=== PATIENT | female | born 1975 | race Caucasian/White ===

== ENCOUNTER 2023-05-28 16:19 | Emergency (ER) | payer BC, SELFPAY ==
[2023-05-28 16:24] VITALS: BP 126/92; PULSE 140; RESP 18; TEMP 36.9; O2SAT 100
[2023-05-28 16:37] VITALS: BP 111/96; PULSE 133; RESP 13; O2SAT 100; BMI 28.8
--- NOTE | 2023-05-28 17:10 | EKG12_ITS ---
Test Reason : RHYTHM CONVERSION Blood Pressure : / mmHG Vent. Rate : 075 BPM Atrial Rate : 075 BPM P-R Int : 134 ms QRS Dur : 114 ms QT Int : 416 ms P-R-T Axes : 064 086 053 degrees QTc Int : 464 ms Normal sinus rhythm Low voltage QRS Incomplete right bundle branch block Borderline ECG Confirmed by MICKEY ARCHULETA, PEDRO ([id number]), fan mail editor MIGDALIA ROGERS ([id number]) on 06/01/2023 10:27:49 AM Referred By: DARI Confirmed By:MOON AREVALO MD
--- NOTE | 2023-05-28 17:12 | EDS_ITS ---
HPI History of Present Illness Chief Complaint: Palpitations Informant: patient Narrative Narrative: Had mild chest tightness, rapid palpitations almost all day today. She went to her PCP and was sent here by EMS. She has had no syncope. She has had no dyspnea. No leg pain or swelling. She drinks 2 cups or so of coffee each day, and sometimes an energy drink on top of that, last couple days she has had less coffee/caffeine than usual. No illicit drugs like cocaine or any other stimulants. She had this happen once a month or so ago, it spontaneously resolved after a day or so. She also had it happen for an hour or less several days ago, and then today. This is the first time she is been evaluated for it. No history of heart or lung problems that she knows of. [facility] Medical History GERD (gastroesophageal reflux disease) Irritable bowel syndrome (IBS) Lupus Home Medications metoprolol tartrate 25 mg tablet 25 mg PO BID #60 tabs 05/28/23 [Rx Last Taken Unknown] Allergy/AdvReac Type Severity Reaction Status Date / Time doxycycline Allergy Hives Verified 05/28/23 16:23 Influenza Virus Vaccines Allergy Hives Verified 05/28/23 16:23 Penicillins Allergy Hives Verified 05/28/23 16:23 Sulfa (Sulfonamide Allergy Hives Verified 05/28/23 16:23 Antibiotics) Social History Smoking Status: Never smoker ROS ROS ED Constitutional Constitutional ED: Denies chills or fever(s) Eyes Eyes: Denies change in vision or diplopia ENT ENT ED: Denies rhinorrhea or sore throat Cardiovascular Cardiovascular: Reports chest pain, palpitations and racing heartbeat; Denies syncope Respiratory/Chest Respiratory/Chest: Denies cough or dyspnea Gastrointestinal Gastrointestinal: Denies abdominal pain, diarrhea, nausea or vomiting Genitourinary Genitourinary ED: Denies dysuria or hematuria Musculoskeletal Musculoskeletal: Denies back pain or neck pain Integumentary Denies abscess or rash Neurologic Neurologic: Denies headache(s), paresthesias or weakness Psychiatric Psychiatric: Denies anxiety or suicidal thoughts EXAM Physical Exam Const Vital Signs: 05/28/23 16:24 05/28/23 16:37 05/28/23 17:52 Temperature 98.5 F Temperature Source Temporal Pulse Rate 140 H 133 H 132 H Respiratory Rate 18 13 26 H Blood Pressure 126/92 H 111/96 H 106/91 H Blood Pressure Mean 103 101 96 Pulse Ox 100 100 100 Oxygen Delivery Method Room Air Room Air Room Air 05/28/23 18:14 05/28/23 18:14 05/28/23 18:33 Temperature Temperature Source Pulse Rate 129 H 72 Respiratory Rate 29 H 20 H Blood Pressure 119/95 H 140/87 H Blood Pressure Mean 103 104 Pulse Ox 100 100 Oxygen Delivery Method Room Air Room Air Room Air 05/28/23 19:25 Temperature Temperature Source Pulse Rate 86 Respiratory Rate Blood Pressure 132/96 H Blood Pressure Mean Pulse Ox 98 Oxygen Delivery Method Positive well nourished and well developed General Appearance ED: well developed and NAD HEENT Reports moist mucous membranes normocephalic and atraumatic Eyes PERRL and EOMs intact bilaterally Neck full ROM, supple and no JVD Resp normal respiratory effort and clear to auscultation bilaterally Cardio regular rate, regular rhythm and no murmurs Rate: tachycardic GI non-tender and non-distended Auscultation: normoactive bowel sounds Palpation: soft Back/Spine no CVA tenderness General Back: other FROM Extremity normal to inspection and no calf tenderness General Extremety ED: Negative for edema, pulses abnormal or tenderness General Extremity: Negative for edema or pulses abnormal Neuro oriented x3, CN's II-XII intact bilaterally and no sensory deficits noted Sensorium / Orientation: awake and alert Motor Exam: strength 5/5 throughout Psych mental status grossly normal Skin no rashes or lesions noted and no wounds MDM MDM MDM Narrative Medical decision making narrative: Patient does appear tachycardic on the monitor, this sounds like a primary dysrhythmia/electrical issue, screen her for metabolic disturbances with blood work as well as a troponin all of which was normal/negative. Her EKG shows a narrow complex tachycardia with a right bundle branch block but still narrow complex, and P waves appear to be buried in the QRS complex, suspicious for antidromic AVNRT, or possibly junctional tachycardia, ectopic atrial tachycardia with retrograde PEs, and/or accessory pathway. Less likely to be a flutter since she is sitting in the 120s/130s without ectopy. We observed her until we were able to convene with respiratory, nursing, physician at the same time and give her adenosine, she did not have any changes in her symptoms nor did she converted on her own before that. She consented to getting adenosine. 6 mg push was given, she tolerated this well and this resulted in immediate cardiov ersion to normal sinus rhythm, and her symptoms resolved. Repeat EKG obtained and looks normal with persistence of the incomplete right bundle branch block. Given all of this, I discussed outpatient management with cardiology, only because she has had a couple episodes of this in the last couple weeks or months. Dr. Baker agrees with putting her on an AV lyric lakisha, recommends metoprolol tartrate 25 mg twice daily. Patient was observed, she had no recurrence of her dysrhythmia, she will be discharged home with a prescription after being given a dose here. Lab Data Attestation: I reviewed the patient's lab results. Labs: Laboratory Results - last 24 hr 05/28/23 16:47 WBC 4.8 RBC 4.77 Hgb 14.0 Hct 43.2 MCV 90.6 MCH 29.4 MCHC 32.4 RDW Std Deviation 42.0 RDW Coeff of Khris 12.6 Plt Count 347 MPV 9.5 Immature Gran % (Auto) 0.400 Neut % (Auto) 58.0 Lymph % (Auto) 30.5 Blaine % (Auto) 10.9 H Eos % (Auto) 0.2 Baso % (Auto) 0.0 Absolute Neuts (auto) 2.8 Absolute Lymphs (auto) 1.46 Nucleated RBC % 0 Sodium 140 Potassium 3.5 Chloride 108 H Carbon Dioxide 27.0 Anion Gap 5 BUN 13 Creatinine 0.86 Estim Creat Clear Calc 80.33 Est GFR (MDRD) Af Amer 91 Est GFR (MDRD) Non-Af 76 BUN/Creatinine Ratio 15.1 Glucose 96 Calcium 9.4 Troponin I High Sens < 3 L Rhythm Strip Rhythm Strip: Narrow complex tachycardia Rate: 133 Ectopy: None EKG Initial EKG: Attestation: I personally reviewed and interpreted this EKG as follows: Interpretation: - (Narrow complex tachycardia with upright T waves and no ST segment deviation, and incomplete RBBB) Prior EKG tracings: not available for review Prior: No Prior Follow-up EKG: Attestation: I personally reviewed and interpreted this EKG as follows: Interpretation: Sinus Rhythm, No Acute Injury Pattern and RBBB (Incomplete) Prior: Changed Management Discussion w/another healthcare provider: Salvage Repairer (Cardiology) Critical Care Time Critical Care Time: Yes Critical care time (excluding procedures): 30-74 minutes (33 min), Including time spent:, Discussing w/Patient &/or Family/Sheet Metal Worker Maintenance, Discussing w/Consultants, Performing Direct Patient Care at Bedside and - (Supervising pharmacologic cardioversion by nursing pushing adenosine) Discharge Plan Triage Chief Complaint: Palpitations ED Provider: Alphonso Quan Dx/Rx/DC Orders Clinical Impression: Supraventricular tachycardia Instructions: ED Understanding Supraventricular Tachycardia (SVT) Prescriptions: New metoprolol tartrate 25 mg tablet 25 mg PO BID Qty: 60 0RF Primary Care Provider: Arden Macias Referrals: Celestina Baker MD [Med Staff - Active Staff] - (call for appt) Arden Macias MD [Primary Care Provider] - Disposition Disposition: Home, Self Care Discharge Date/Time: 05/28/23 19:31
[2023-05-28 17:21] LABS: Absolute Lymphocyte Count 1.46 X10^3/uL (0.83-4.51); Absolute Neutrophil Count 2.8 X10^3/uL (2.0-7.7); Eosinophil# 0.01 X10^3/uL; Eosinophils% 0.2 % (0-5); Hematocrit 43.2 % (37-47); Lymphocyte # 1.46 X10^3/ul (0.83-4.51); Lymphocyte % 30.5 % (19-41); Mean Corp Hgb Conc 32.4 g/dL (32-36); Mean Corpuscular Hgb 29.4 pg (27.0-32.0); Mean Corpuscular Volume 90.6 fL (81-99); Mean Platelet Vol. 9.5 fl (6.2-12.0); Monocyte# 0.52 X10^3/uL; Monocyte% 10.9 % (0-10); NRBC Flagged by Analyzer 0 % (0-5); Neutrophil # 2.78 X10^3/uL (2.7-7.7); Platelet Count 347 K/mm3 (150-450); RBC Distribution Width CV 12.6 % (11.6-14.6); Red Blood Count 4.77 M/mm3 (4.2-5.4); White Blood Count 4.8 K/mm3 (4.4-11.0)
[2023-05-28] MEDS: 0.9% Normal Saline (500mL Bag) 500 ML 999 ML IV (17:34)
[2023-05-28 17:40] LABS: Anion Gap 5 (5-15); BUN 13 mg/dL (7-18); BUN/Creat Ratio 15.1 RATIO (10-20); Calcium,Total 9.4 mg/dL (8.5-10.1); Chloride 108 mmol/L (98-107); Creatinine, Serum 0.86 mg/dL (0.55-1.02); EST Glomerular Filtration Rate 76 mL/min (>60); Est Glom Filt Rate - Afr Amer 91 mL/min (>60); Estimated Creatinine Clearance 80.33 ml/min; Glucose 96 mg/dL (74-106); Potassium 3.5 mmol/L (3.5-5.1); Sodium Level 140 mmol/L (136-145); Troponin-I HS < 3 pg/mL (3.0-54.0)
[2023-05-28 17:52] VITALS: BP 106/91; PULSE 132; RESP 26; O2SAT 100
[2023-05-28 18:14] VITALS: BP 119/95; PULSE 129; RESP 29; O2SAT 100
[2023-05-28] MEDS: Adenosine 6 MG/2 ML Syringe IV (18:31)
--- NOTE | 2023-05-28 18:31 | EKG12_ITS ---
Test Reason : Blood Pressure : / mmHG Vent. Rate : 128 BPM Atrial Rate : 000 BPM P-R Int : 000 ms QRS Dur : 116 ms QT Int : 338 ms P-R-T Axes : 000 095 045 degrees QTc Int : 493 ms Accelerated Junctional rhythm with retrograde conduction Low voltage QRS Right bundle branch block Abnormal ECG Confirmed by MICKEY ARCHULETA, PEDRO ([id number]), proposal editor MIGDALIA ROGERS ([id number]) on 06/01/2023 10:27:28 AM Referred By: Confirmed By:MOON AREVALO MD
[2023-05-28 18:33] VITALS: BP 140/87; PULSE 72; RESP 20; O2SAT 100
--- NOTE | 2023-05-28 18:46 | ED.RN ---
PT REMAINED ON LIFEPAK MONITOR DURING ADENOSINE ADMINISTRATION. DR WILCOX AND RT DELANO AT BEDSIDE. PT CONVERTED TO NORMAL SINUS RHYTHM.
[2023-05-28] MEDS: Metoprolol Tartrate 25 MG Tablet PO (19:23)
[2023-05-28 19:25] VITALS: BP 132/96; PULSE 86; O2SAT 98
== END 2023-05-28 19:31 | disposition home or self-care (01) ==
PROVIDERS: Emergency Provider Emergency Medicine; PCP Family Medicine; Visit Provider Emergency Medicine
DX: I47.1 Supraventricular tachycardia (principal)
CPT/HCPCS: 80048; 84484; 85025; 93005; 96361; 96374; 99285; J7030; J7040; A4216; J0153

== ENCOUNTER → 2023-08-03 | Outpatient (CLI) | payer BC, SELFPAY ==
--- NOTE | 2023-08-03 13:45 | ECHOCS_ITS ---
Reason For Study: SVT Procedure This was a 2D Doppler, Color Flow transthoracic echocardiogram. The study was technically difficult. Contrast injection was performed. Exam performed in department. Left Ventricle Normal LV size. Left ventricular systolic function is normal. The estimated ejection fraction is 65 %. No regional wall motion abnormalities noted. Right Ventricle Normal RV size. The right ventricle is normal in size, function, and thickness. Atria Normal left atrium. Mitral Valve Normal mitral valve. Tricuspid Valve Normal tricuspid valve. Aortic Valve Normal aortic valve. Pulmonic Valve The pulmonic valve is not well visualized. Great Vessels Normal aortic root. The pulmonary artery is normal size. Normal inferior vena cava. Pericardium/Pleural No pericardial effusion. Medication 22 gauge I.V. with prn adaptor inserted into right arm. Diluted definity 1.5ml given slow IV push to enhance endocardial definition. MMode/2D Measurements & Calculations LVIDd: 4.5 cm IVSd: 0.96 cm Ao root diam: 3.1 cm LVIDs: 3.2 cm LVPWd: 0.82 cm LA dimension: 3.5 cm RVDd: 3.1 cm FS: 29.8 % LAV(MOD-bp): 42.9 ml LVAd ap4: 32.3 cm2 SV(MOD-sp4): 72.2 ml LAV(MOD-bp) Indexed: 21.9 ml/m2 LVLd ap4: 7.5 cm LAV(MOD-sp2): 41.1 ml EDV(MOD-sp4): 112.4 ml LAV(MOD-sp4): 39.5 ml EDV(sp4-el): 118.0 ml LVAs ap4: 16.8 cm2 LVLs ap4: 5.8 cm ESV(MOD-sp4): 40.2 ml ESV(sp4-el): 41.3 ml EF(MOD-sp4): 64.2 % EF(sp4-el): 65.0 % SV(sp4-el): 76.7 ml LA A4 area: 15.9 cm2 RA A4 area: 13.5 cm2 Time Measurements MV dec time: 0.21 sec Doppler Measurements & Calculations MV E max burton: 92.6 cm/sec Lat Peak E' Burton: 8.8 cm/sec Med Peak E' Burton: 13.7 cm/sec MV A max burton: 80.7 cm/sec E/E' lat: 10.5 E/E' med: 6.7 MV E/A: 1.1 MV V2 max: 106.4 cm/sec MV P1/2t max burton: 107.1 cm/sec Ao V2 max: 128.4 cm/sec MV max P.5 mmHg MV P1/2t: 71.7 msec Ao max P.6 mmHg MV V2 mean: 57.8 cm/sec Ao V2 mean: 89.2 cm/sec MV mean P.6 mmHg MV dec slope: 437.7 cm/sec2 Ao mean P.6 mmHg MV V2 VTI: 28.7 cm MVA(P1/2t): 3.1 cm2 Ao V2 VTI: 30.2 cm AV (velocity ratio): 0.86 LV V1 max: 116.8 cm/sec MR max burton: 532.6 cm/sec PA V2 max: 86.5 cm/sec LV V1 max P.5 mmHg MR max P.5 mmHg LV V1 mean P.2 mmHg LV V1 mean: 85.2 cm/sec LV V1 VTI: 26.1 cm ECHO/Echo Complete W/ Contrast Interpretation Summary Normal LV size. Left ventricular systolic function is normal. The estimated ejection fraction is 65 %. Contrast injection was performed. Ordering Physician: Pelon Escoto Referring Physician: Arden Macias Performed By: Godfrey Emery, ZARI
== END | disposition home or self-care (01) ==
LOC: CVS 13:44
PROVIDERS: PCP Family Medicine; Referring Provider Internal Medicine Cardiovascular Disease; Visit Provider Internal Medicine Cardiovascular Disease
DX: I47.10 Supraventricular tachycardia, unspecified (principal)
CPT/HCPCS: 93306; Q9957; A4216; C8929

== ENCOUNTER 2023-10-02 11:20 | Emergency (ER) | payer BC, SELFPAY ==
[2023-10-02 11:21] VITALS: BP 111/81; PULSE 147; RESP 22; TEMP 35.6; O2SAT 100; BMI 28.2
--- NOTE | 2023-10-02 11:42 | EDS_ITS ---
HPI History of Present Illness Chief Complaint: Palpitations Informant: patient and spouse/S.O. Narrative Narrative: 48-year-old female presenting to the emergency room with tachycardia. Patient states that she has been diagnosed with SVT and sees Dr. Escoto for cardiology locally and Dr. Bay from [facility] for electrophysiology. She states that she is to have a catheter directed ablation upcoming but it is not scheduled yet. This is causing her some stress. She states that yesterday she began to have heart rates in the 130s. She states that she tried taking extra metoprolol and bearing down. These have worked for her in the past. She states she is not taking any caffeine currently. Her laboratory workup in the past has been negative. She has had a prior ED visit with termination of the SVT using adenosine. She has an underlying right bundle branch block dating back to 2018. [facility] Medical History Adjustment disorder with mixed anxiety and depressed mood Bradycardia GERD (gastroesophageal reflux disease) Irritable bowel syndrome (IBS) Lupus Raynaud's disease without gangrene Right bundle branch block (RBBB) Home Medications calcium carbonate 600 mg calcium (1,500 mg) tablet 600 mg PO DAILY 06/16/23 [History Last Taken Unknown] desvenlafaxine succinate 100 mg tablet,extended release 24 hr (Pristiq) 100 mg PO DAILY 06/16/23 [History Last Taken Unknown] hydroxychloroquine 200 mg tablet 200 mg PO BID 06/16/23 [History Last Taken Unknown] multivitamin 1 tab PO DAILY 06/16/23 [History Last Taken Unknown] pantoprazole 40 mg tablet,delayed release 40 mg PO DAILY 06/16/23 [History Last Taken Unknown] biotin 10 mg tablet 10 mg PO DAILY 06/28/23 [History Last Taken Unknown] metoprolol tartrate 25 mg tablet 25 mg PO BID #180 tabs 08/06/23 [Rx Last Taken Unknown] Allergy/AdvReac Type Severity Reaction Status Date / Time doxycycline Allergy Hives Verified 06/28/23 10:54 Influenza Virus Vaccines Allergy Hives Verified 06/28/23 10:54 Penicillins Allergy Hives Verified 06/28/23 10:54 Sulfa (Sulfonamide Allergy Hives Verified 06/28/23 10:54 Antibiotics) Family History Father Aortic stenosis COPD (chronic obstructive pulmonary disease) Thyroid disorder Grandmother Aortic stenosis Uncle Myocardial infarction CAD (coronary artery disease) Surgical History Hx of appendectomy Social History Smoking Status: Former smoker ROS ROS ED Constitutional Constitutional ED: Denies chills, fever(s) or weight loss Eyes Eyes: Denies change in vision or diplopia ENT ENT ED: Denies ear pain, rhinorrhea or sore throat Cardiovascular Cardiovascular: Reports palpitations and racing heartbeat; Denies chest pain or orthopnea Respiratory/Chest Respiratory/Chest: Denies cough, dyspnea or orthopnea Gastrointestinal Gastrointestinal: Denies abdominal pain, diarrhea, nausea or vomiting Genitourinary Genitourinary ED: Denies dysuria, hematuria or urinary frequency Musculoskeletal Musculoskeletal: Denies arthralgias or myalgias Integumentary Denies abscess or rash Neurologic Neurologic: Denies headache(s) or weakness Psychiatric Psychiatric: Denies anxiety, depression, suicidal ideation or suicidal thoughts Endocrine Endocrinology: Denies polydipsia, polyphagia or polyuria Allergic/Immunologic Allergic/Immunologic ED: Denies mouth swelling, tongue swelling or urticaria EXAM Physical Exam Const Vital Signs: 10/02/23 11:21 10/02/23 11:51 10/02/23 12:00 Temperature 96.1 F L Temperature Source Temporal Pulse Rate 147 H 126 H 82 Respiratory Rate 22 H 14 20 H Blood Pressure 111/81 H 122/106 H 97/78 Blood Pressure Mean 91 111 84 Pulse Ox 100 100 100 Oxygen Delivery Method Room Air Room Air Room Air Positive well nourished and well developed General Appearance ED: well developed HEENT Reports normocephalic, head/scalp atraumatic and moist mucous membranes Eyes PERRL and EOMs intact bilaterally Neck no lymphadenopathy, supple and no JVD Resp normal respiratory effort and clear to auscultation bilaterally Cardio regular rate, regular rhythm and no murmurs Rate: tachycardic GI normal to inspection, nondistended, normoactive bowel sounds and non-tender Palpation: soft Back/Spine no CVA tenderness and normal ROM Extremity normal to inspection General Extremety ED: Negative for edema General Extremity: Negative for edema Neuro oriented x3 and CN's II-XII intact bilaterally Sensorium / Orientation: alert Motor Exam: strength 5/5 throughout Psych mental status grossly normal Mood & Affect: tearful; Negative for depressed Skin no rashes or lesions noted and no wounds MDM MDM MDM Narrative Medical decision making narrative: Prior EKGs and cardiology notes were reviewed. No relief with Valsalva here in the department. Patient received 6 mg of adenosine which resulted in conversion to a normal sinus rhythm. Repeat EKG was obtained. I spoke with Dr. Chisholm from cardiology. He is going to have their office reach out to [facility] to see if there is anything that they can do in helping her get scheduled for her cardiac ablation. Patient is comfortable with this plan. No changes to medications made. EKG Initial EKG: Attestation: I personally reviewed and interpreted this EKG as follows: Comments: SVT rhythm at a rate of 132 bpm with right bundle branch block. Follow-up EKG: Attestation: I personally reviewed and interpreted this EKG as follows: Comments: Normal sinus rhythm with a ventricular rate of 76 bpm. Right bundle branch block noted Management Discussion w/another healthcare provider: Director Of Audiology (Cardiology (Dr. Chisholm)) Discharge Plan Triage Chief Complaint: Palpitations ED Provider: Serafin Rainey Dx/Rx/DC Orders Clinical Impression: Right bundle branch block (RBBB), SVT (supraventricular tachycardia) Instructions: ED Understanding Supraventricular Tachycardia (SVT) Prescriptions: No Action desvenlafaxine succinate [Pristiq] 100 mg tablet extended release 24 hr 100 mg PO DAILY hydroxychloroquine 200 mg tablet 200 mg PO BID pantoprazole 40 mg tablet,delayed release (DR/EC) 40 mg PO DAILY calcium carbonate 600 mg calcium (1,500 mg) tablet 600 mg PO DAILY multivitamin Tablet 1 tab PO DAILY biotin 10 mg tablet 10 mg PO DAILY metoprolol tartrate 25 mg tablet 25 mg PO BID Qty: 180 4RF Primary Care Provider: Arden Macias Referrals: Arden Macias MD [Primary Care Provider] - Activity Restrictions/Additional Instructions: Continue the home medication and treatments as discussed with your cardiologists. I spoke with cardiology today. They are going to see what they can do in reaching out to [facility]. If you do not hear from Dr. Escoto's office by Wednesday afternoon give them a call. Disposition Disposition: Home, Self Care
[2023-10-02 11:51] VITALS: BP 122/106; PULSE 126; RESP 14; O2SAT 100
[2023-10-02] MEDS: Adenosine 6 MG/2 ML Syringe IV (11:56)
[2023-10-02 12:00] VITALS: BP 97/78; PULSE 82; RESP 20; O2SAT 100
--- NOTE | 2023-10-02 12:00 | NURSING ---
Defib pads in place, adenosine given, Dr. Rainey at bedside. Pt converted to NSR. HR 80s. Will repeat EKG in approx [address] mitchell. Pt tolerated well.
--- OUTSIDE RECORDS SUMMARY | 2023-10-02 12:33 | XMS RPT_ITS | CCD ---
Author Name Unknown Address [id number] [place] [address] Organization [facility] Care Team Providers Care Personal Development Educator Name Role Phone Sabina ARCHULETA, Arden Rob Primary Care Provider Arden Muhammad MD Primary Care Provider [phone] Jevon ARCHULETA, Pelon Merino Unavailable Model ARCHULETA, Genna Unavailable Alphonso Marroquin MD Unavailable [phone] PELON ESCOTO Referring Unavailable LISSET HILL Attending Unavailable ARDEN MUHAMMAD Primary Care Unavailable ARDEN MUHAMMAD Primary Care Unavailable VETOVITZ, MALATHI Referring Unavailable ARDEN MUHAMMAD Primary Care Unavailable VETOVITZ, MALATHI Referring Unavailable ARDEN MUHAMMAD Primary Care Unavailable VETOVITZ, MALATHI Referring Unavailable VETOVITZ, MALATHI Referring Unavailable ARDEN MUHAMMAD Primary Care Unavailable VETOTRINA, MALATHI Referring Unavailable ARDEN MUHAMMAD Primary Care Unavailable ARDEN MUHAMMAD Primary Care Unavailable ALPHONSO MARROQUIN Admitting Unavailable ALPHONSO MARROQUIN Attending Unavailable ARDEN MUHAMMAD Primary Care Unavailable ALPHONSO MARROQUIN Referring Unavailable ARDEN MUHAMMAD Primary Care Unavailable ARDEN MUHAMMAD Referring Unavailable VETOVIDORIS, MALATHI Referring Unavailable ARDEN MUHAMMAD Primary Care Unavailable BREN BACH Referring Unavailable ARDEN MUHAMMAD Primary Care Unavailable ALPHONSO MARROQUIN Attending Unavailable ARDEN MUHAMMAD Primary Care Unavailable MODEL, GENNA Attending Unavailable ARDEN MUHAMMAD Primary Care Unavailable MODEL, GENNA Referring Unavailable ARDEN MUHAMMAD Primary Care Unavailable LEYDA BOWMAN Referring Unavailable ARDEN MUHAMMAD Primary Care Unavailable SABINA, ARDEN Rob Primary Care Unavailable ARDEN MUHAMMAD Attending Unavailable ADREN MUHAMMAD Primary Care Unavailable SABINA, ARDEN J Attending Unavailable MARLA PEREA Attending Unavailable MAXINE BROWN Referring Unavailable SABINA, ARDEN Rob Primary Care Unavailable BREN BACH Attending Unavailable SABINA, ARDEN Rob Primary Care Unavailable ALPHONSO MARROQUIN Referring Unavailable ALPHONSO MARROQUIN Attending Unavailable SABINA, ARDEN Rob Primary Care Unavailable ALPHONSO MARROQUIN Referring Unavailable SABINA, ARDEN Rob Primary Care Unavailable ALPHONSO MARROQUIN Referring Unavailable SABINA, ARDEN Rob Primary Care Unavailable MODEL, GENNA Attending Unavailable SABINA, ARDEN Rob Primary Care Unavailable VETOVITZ, MALATHI Referring Unavailable VETOVITZ, MALATHI Attending Unavailable SABINA, ARDEN Rob Primary Care Unavailable ALPHONSO MARROQUIN Attending Unavailable SABINA, ARDEN Rob Primary Care Unavailable SABINA, ARDEN Rob Primary Care Unavailable SABINA, ARDEN Rob Referring Unavailable SABINA, ARDEN Rob Primary Care Unavailable SABINA, ARDEN Rob Attending Unavailable Allergies Allergy Classification Reported Allergen(s) Allergy Type Date of Onset Reaction(s) Facility (20 sources) Doxycycline; Translations: [DOXYCYCLINE] Drug Allergy 7 [facility] Work Phone: (6 sources) Penicillins; Translations: [PENICILLINS] Propensity to adverse reactions 5 [facility] Work Phone: (20 sources) Sulfonamides (Antibiotic); Translations: [SULFA (SULFONAMIDE ANTIBIOTICS)] Propensity to adverse reactions 5 [facility], Shortness of Breath [facility] Work Phone: (20 sources) Influenza A (H1n1) Vac 09 (Pf); Translations: [INFLUENZA A (H1N1) VAC 09 (PF)] Drug Allergy 6 [facility] (6 sources) Influenza Virus Vaccines; Translations: [INFLUENZA VIRUS VACCINES] Drug Allergy 7 [facility] Work Phone: (20 sources) Penicillins Propensity to adverse reactions 5 [facility] Work Phone: (20 sources) Influenza Virus Vaccines Drug Allergy 7 [facility] Work Phone: (14 sources) Amoxicillin; Translations: [AMOXICILLIN] Drug Allergy 3 [facility] Medications Current Medications Medication Drug Class(es) Dates Sig (Normalized) Sig (Original) acetaminophen 325 mg / HYDROcodone bitartrate 5 mg oral tablet (1 source) Opioid Agonist Start: 07-07-2023 End: 07-14-2023 take 1 tablet by mouth every six hours as needed for pain HYDROcodone-aceta minophen (NORCO) 5-325 mg per tablet Indications: [facility] arthritis Take 1 tablet by mouth every 6 hours as needed for pain for up to 7 days. 28 tablet 0 07/07/2023 07/14/2023 Active Completed/Discontinued Medications Medication Drug Class(es) Dates Sig (Normalized) Sig (Original) BIOTIN, BULK, MISC (20 sources) BIOTIN, BULK, WI SC once daily. 0 Active Problems Active Problems Problem Classification Problem Date Documented Da te Episodic/Chronic Adjustment disorders (20 sources) Adjustment disorder with mixed anxiety and depressed mood; Translations: [Adjustment disorder with mixed anxiety and depressed mood] Onset: 1 09-15-2010 Chronic Cardiac dysrhythmias (6 sources) Supraventricular tachycardia; Translations: [Supraventricular tachycardia] Onset: 3 08-20-2023 Chronic Conduction disorders (5 sources) Right bundle branch block; Translations: [Unspecified right bundle-branch block] Onset: 3 08-19-2023 Chronic Diseases of mouth; excluding dental (1 source) Oral lesion; Translations: [Other lesions of oral mucosa] Episodic Diseases of white blood cells (8 sources) Leukopenia; Translations: [Decreased white blood cell count, unspecified] Onset: 4 Chronic Disorders of lipid metabolism (1 source) Mixed hyperlipidemia; Translations: [Mixed hyperlipidemia] Onset: 3 Chronic Esophageal disorders (20 sources) Gastroesophageal reflux disease without esophagitis; Translations: [Gastro-esophageal reflux disease without esophagitis] Onset: 1 Chronic Miscellaneous mental health disorders (18 sources) Situational hypoactive sexual desire disorder; Translations: [Hypoactive sexual desire disorder] Onset: 1 09-15-2010 Chronic Nausea and vomiting (1 source) Postoperative nausea and vomiting; Translations: [Nausea with vomiting, unspecified] 07-07-2023 Episodic Osteoarthritis (20 sources) Osteoarthrosis of the carpometacarpal joint of the thumb; Translations: [Unilateral primary osteoarthritis of first carpometacarpal joint, left hand] Onset: 3 06-16-2023 Chronic Other circulatory disease (20 sources) Raynaud's disease; Translations: [Raynaud's syndrome without gangrene] Onset: 3 Chronic Other circulatory disease (1 source) Raynaud's syndrome without gangrene; Translations: [Raynaud's disease without gangrene] Onset: 3 Chronic Other connective tissue disease (1 source) Pain in left arm; Translations: [Pain in left arm] Episodic Other connective tissue disease (1 source) Pain of bilateral hands; Translations: [Pain in right hand] 06-10-2023 Episodic Other eye disorders (1 source) Dry eyes; Translations: [Dry eye syndrome of bilateral lacrimal glands] Episodic Other gastrointestinal disorders (20 sources) Irritable bowel syndrome; Translations: [Irritable bowel syndrome without diarrhea] Onset: 5 08-21-2009 Chronic Other gastrointestinal disorders (1 source) Other irritable bowel syndrome; Translations: [Other irritable bowel syndrome] Onset: 9 Chronic Other non-traumatic joint disorders (4 sources) Multiple joint pain; Translations: [Pain in unspecified joint] Episodic Other non-traumatic joint disorders (8 sources) Thumb joint stiff; Translations: [Stiffness of unspecified hand, not elsewhere classified] Onset: 3 07-28-2023 Episodic Other nutritional; endocrine; and metabolic disorders (1 source) Obesity, unspecified; Translations: [Obesity, Class I, BMI 30-34.9] Onset: 3 Chronic Other nutritional; endocrine; and metabolic disorders (1 source) Abnormal weight gain; Translations: [Weight gain] Onset: 4 Episodic Other skin disorders (1 source) Loss of hair; Translations: [Nonscarring hair loss, unspecified] Episodic Other upper respiratory disease (20 sources) Allergic rhinitis; Translations: [Allergic rhinitis, unspecified] Onset: 9 06-21-2017 Chronic Systemic lupus erythematosus and connective tissue disorders (20 sources) Systemic lupus erythematosus; Translations: [Systemic lupus erythematosus, unspecified] Onset: 3 Chronic Unclassified (1 source) mica hand Onset: 3 Past or Other Problems Problem Classification Problem Date Documented Date Episodic/Chronic Allergic reactions (20 sources) Contact dermatitis; Translations: [Unspecified contact dermatitis, unspecified cause] Onset: 01-09-2009 08-21-2009 Episodic Appendicitis and other appendiceal conditions (18 sources) Acute appendicitis; Translations: [Unspecified acute appendicitis] Onset: 06-07-2013 06-07-2013 Episodic Cardiac dysrhythmias (20 sources) Tachycardia; Translations: [Tachycardia, unspecified] Onset: 05-28-2023 05-28-2023 Episodic Disorders of teeth and jaw (20 sources) Arthralgia of temporomandibular joint; Translations: [Arthralgia of temporomandibular joint, unspecified side] Onset: 01-20-2011 01-20-2011 Episodic Headache; including migraine (20 sources) Headache; Translations: [Headache] Onset: 01-09-2009 08-21-2009 Episodic Immunizations and screening for infectious disease (20 sources) Raised antinuclear antibody; Translations: [Other specified abnormal immunological findings in serum] Onset: 08-28-2022 Episodic Nonspecific chest pain (2 sources) Chest pain; Translations: [Chest pain, unspecified] Onset: 05-28-2023 05-28-2023 Episodic Other aftercare (1 source) Encounter for therapeutic drug level monitoring; Translations: [Medication monitoring encounter] Onset: 01-18-2023 Episodic Other connective tissue disease (1 source) Pain in right hand; Translations: [Bilateral hand pain] Onset: 06-10-2023 Episodic Other connective tissue disease (1 source) Pain in left hand; Translations: [Bilateral hand pain] Onset: 06-10-2023 Episodic Other non-traumatic joint disorders (20 sources) Pain in left knee; Translations: [Pain in joint, lower leg] Onset: 07-23-2010 07-23-2010 Episodic Other screening for suspected conditions (not mental disorders or infectious disease) (9 sources) Patient encounter status; Translations: [Encounter for screening mammogram for malignant neoplasm of breast] Onset: 10-02-2022 Episodic Results Test Name Value Interpretation Reference Range Facil ity Vital Signs Date Time Vital Sign Value Performing Clinician Gary beckham 08-20-2023 08:26-0500 Body height 170.2 cm Lisset Schweikert MD Work Phone: [facility] 08-20-2023 08:26-0500 Body weight 84.37 kg Lisset Hill MD Work Phone: [facility] 08-20-2023 08:26-0500 Diastolic blood pressure 77 mm[Hg] Lisset Hill MD Work Phone: [facility] 08-20-2023 08:26-0500 Heart rate 71 /min Lisset Hill MD Work Phone: [facility] 08-20-2023 08:26-0500 SaO2% (BldA) [Mass fraction] 98 % Lisset Hill MD Work Phone: [facility] 08-20-2023 08:26-0500 Systolic blood pressure 152 mm[Hg] Lisset Hill MD Work Phone: [facility] 06-21-2023 14:44-0400 Body height 170.2 cm Pacc 1 Work Phone: [facility] 06-21-2023 14:44-0400 Body temperature 99.19 [degF] Pacc 1 Work Phone: [facility] 06-21-2023 14:44-0400 Body weight 84.37 kg Pacc 1 Work Phone: [facility] 06-21-2023 14:44-0400 Diastolic blood pressure 62 mm[Hg] Pacc 1 Work Phone: [facility] 06-21-2023 14:44-0400 Heart rate 76 /min Pacc 1 Work Phone: [facility] 06-21-2023 14:44-0400 Respiratory rate 14 /min Pacc 1 Work Phone: [facility] 06-21-2023 14:44-0400 SaO2% (BldA) [Mass fraction] 99 % Pacc 1 Work Phone: [facility] 06-21-2023 14:44-0400 Systolic blood pressure 100 mm[Hg] [facility] 1 Work Phone: [facility] 05-28-2023 15:13-0400 Body weight 82.74 kg Arden Muhammad MD Work Phone: [facility] 05-28-2023 15:13-0400 Diastolic blood pressure 60 mm[Hg] Arden Muhammad MD Work Phone: [facility] 05-28-2023 15:13-0400 Heart rate 143 /min Arden Muhammad MD Work Phone: [facility] 05-28-2023 15:13-0400 Respiratory rate 18 /min Arden Muhammad MD Work Phone: [facility] 05-28-2023 15:13-0400 SaO2% (BldA) [Mass fraction] 98 % Arden Muhammad MD Work Phone: [facility] 05-28-2023 15:13-0400 Systolic blood pressure 120 mm[Hg] Arden Muhammad MD Work Phone: [facility] 01-18-2023 13:51-0400 Body weight 83.01 kg Genna Romero MD Work Phone: [facility] 01-18-2023 13:51-0400 Diastolic blood pressure 69 mm[Hg] Genna Romero MD Work Phone: [facility] 01-18-2023 13:51-0400 Heart rate 75 /min Genna Romero MD Work Phone: [facility] 01-18-2023 13:51-0400 Systolic blood pressure 125 mm[Hg] Genna Romero MD Work Phone: [facility] 10-21-2022 10:25-0500 Body weight 81.65 kg Bren Isreal PA-C Work Phone: [facility] 10-21-2022 10:25-0500 Diastolic blood pressure 78 mm[Hg] Bren Isreal PA-C Work Phone: [facility] 10-21-2022 10:25-0500 Heart rate 62 /min Bren Isreal PA-C Work Phone: [facility] 10-21-2022 10:25-0500 Systolic blood pressure 110 mm[Hg] Bren Isreal PA-C Work Phone: [facility] 10-02-2022 12:02-0500 Diastolic blood pressure 70 mm[Hg] Marla Perea MD Work Phone: [facility] 10-02-2022 12:02-0500 Heart rate 85 /min Marla Perea MD Work Phone: [facility] 10-02-2022 12:02-0500 Respiratory rate 16 /min Marla Perea MD Work Phone: [facility] 10-02-2022 12:02-0500 SaO2% (BldA) [Mass fraction] 100 % Marla Perea MD Work Phone: [facility] 10-02-2022 12:02-0500 Systolic blood pressure 127 mm[Hg] Marla Perea MD Work Phone: [facility] 10-02-2022 10:17-0500 Body temperature 97.9 [degF] Marla Perea MD Work Phone: [facility] 09-11-2022 08:50-0500 Body height 170.2 cm Maxine Star Lake PA-C Work Phone: [facility] 09-11-2022 08:50-0500 Body temperature 98.71 [degF] Maxine Penny PA-C Work Phone: [facility] 09-11-2022 08:50-0500 Body weight 85.46 kg Maxine Penny PA-C Work Phone: [facility] 09-11-2022 08:50-0500 Diastolic blood pressure 78 mm[Hg] Maxine [place] PA-C Work Phone: [facility] 09-11-2022 08:50-0500 Heart rate 94 /min Maxine Star [place] PA-C Work Phone: [facility] 01-06-2023 08:50-0500 SaO2% (BldA) [Mass fraction] 99 % Maxine Star Lake PA-C Work Phone: [facility] 09-11-2022 08:50-0500 Systolic blood pressure 120 mm[Hg] Maxine Morinf PA-C Work Phone: [facility] 06-17-2022 10:40-0400 Body temperature 98.2 [degF] Bren Isreal PA-C Work Phone: [facility] 06-17-2022 10:40-0400 Body weight 80.29 kg Bren Isreal PA-C Work Phone: [facility] 06-17-2022 10:40-0400 Diastolic blood pressure 70 mm[Hg] Bren Isreal PA-C Work Phone: [facility] 06-17-2022 10:40-0400 Heart rate 76 /min Bren Isreal PA-C Work Phone: [facility] 06-17-2022 10:40-0400 Systolic blood pressure 122 mm[Hg] Bren Isreal PA-C Work Phone: [facility] 06-08-2022 13:26-0400 Body height 168 cm Yon Masci DO Work Phone: [facility] 06-08-2022 13:26-0400 Body temperature 98.2 [degF] Yon Masci DO Work Phone: [facility] 06-08-2022 13:26-0400 Body weight 81.19 kg Yon Masci DO Work Phone: [facility] 06-08-2022 13:26-0400 Diastolic blood pressure 81 mm[Hg] Yon Masci DO Work Phone: [facility] 06-08-2022 13:26-0400 Heart rate 81 /min Yon Masci DO Work Phone: [facility] 06-08-2022 13:26-0400 SaO2% (BldA) [Mass fraction] 98 % Yon Masci DO Work Phone: [facility] 06-08-2022 13:26-0400 Systolic blood pressure 116 mm[Hg] Yon Mcmanus DO Work Phone: [facility] Encounters Encounter Date Encounter Type Care Provider Facility Start: 09-20-2023 End: 09-21-2023 ambulatory ARDEN MUHAMMAD Facility:[facility] Start: 09-16-2023 End: 09-17-2023 ambulatory ARDEN Rob SABINA Facility:[facility] Start: 08-27-2023 End: 08-28-2023 ambulatory ARDEN Rob SABINA Facility:[facility] Start: 08-27-2023 Encounter for genera l adult medical examination without abnormal findings ARDEN Darron SABINA [facility] Start: 08-26-2023 End: 08-26-2023 ambulatory MALATHI ARCE Facility:[facility] Start: 08-26-2023 End: 08-27-2023 ambulatory ARDEN Rob SABINA Facility:[facility] Start: 08-26-2023 End: 08-26-2023 Patient encounter procedure Alphonso Marroquin MD Work Phone: Orthopaedics Procedures Date Procedure Procedure Detail Performing Clinician Start: 08-26-2023 Lipid 1996 panel - S dina or Plasma Alphonso Marroquin MD Work Phone: Start: 08-20-2023 Ecg routine ecg w/le ast 12 lds w/i&r Lisset Hill MD Work Phone: Start: 06-10-2023 Radex hand minimum 3 views Alphonso Marroquin MD Work Phone: Start: 03-01-2023 End: 03-01-2023 Mammography Leyda Bowman MD Work Phone: Start: 10-02-2022 Colonoscopy flx dx w /collj spec when pfrmd Maxine Brown PA-C Work Phone: Start: 10-02-2022 Colonoscopy Bren dyson PA-C Work Phone: Start: 02-27-2022 MERLIN SCREENING W COLLETTE Muhammad MD Work Phone: Start: 02-27-2022 Lipid 1996 panel - S dina or Plasma Arden Muhammad MD Work Phone: Start: 02-27-2022 Mammography Screen Wst r Start: 02-13-2022 Adult depression scr eening assessment Screen Wstr Start: 02-17-2021 Mammography Arden Guevara MD Work Phone: Start: 01-22-2021 Adult depression scr eening assessment Arden Muhammad MD Work Phone: Plan of Treatment Date Care Activity Detail Author Start: 10-02-2032 Colonoscopy COLONOSCOPY [facility] Start: 10-02-2032 COLORECTAL CANCER SCREENING COLORECTAL CANCER SCREENING [facility] Start: 10-02-2032 Screening for malign ant neoplasm of colon [facility] Start: 04-06-2032 Urine microalbumin profile [facility] Start: 08-26-2028 Lipid panel Lipid Screening [facility] Start: 02-27-2027 Lipid 1996 panel - S dina or Plasma Lipid Screening [facility] Start: 02-27-2027 Lipid panel Lipid Screening [facility] Start: 02-27-2027 LIPID SCREEN LIPID SCREEN [facility] Start: 08-26-2026 Diabetes Screening Diabetes Screenin [facility] Start: 01-18-2026 DIABETES SCREEN DIABETES SCREEN [facility] Start: 01-18-2026 Diabetes Screening Diabetes Screenin g [facility] Start: 10-21-2025 DIABETES SCREEN DIABETES SCREEN [facility] Start: 02-27-2025 DIABETES SCREEN DIABETES SCREEN [facility] Start: 08-27-2024 Covid-19 Vaccine (#1) Covid-19 Vacci ne (#1) [facility] Immunizations Immunization Date Immunization Notes Care Provider Fa cility 04-06-2022 tetanus toxoid, redu israel diphtheria toxoid, and acellular pertussis vaccine, adsorbed Arden Muhammad MD Work Phone: [facility] 06-21-2010 influenza virus vaccine, unspecified formulation Arden Muhammad MD Work Phone: [facility] Work Phone: 01-09-2009 tetanus toxoid, redu israel diphtheria toxoid, and acellular pertussis vaccine, adsorbed Arden Muhammad MD Work Phone: [facility] Work Phone: Payers Date Payer Category Payer Unknown [employer] P[employer] [id number] 2021-Present [phone] [address] [place] [address] PPO [id number] 2021 Unknown [id number] 2021 Unknown [id number] Social History Date Type Detail Facility Start: 12-26-2013 End: 10-02-2022 Tobacco smoking status NHIS Ex-smoker [facility] End: 12-06-2007 History of tobacco use Current smoker [facility] End: 12-06-2007 History of tobacco use Cigarette Smoker [facility] Start: 11-17-2021 End: 08-30-2023 Alcohol intake Ex-drinker (finding) [facility] Start: 01-22-2021 End: 08-24-2022 History SDOH Alcohol Frequency 1 [facility] Start: 01-22-2021 End: 08-24-2022 History SDOH Alcohol Std Drinks 98 [facility] Start: 12-26-2013 History SDOH Alcohol Comment Rarely [facility] Start: 01-22-2021 End: 08-24-2022 History SDOH Social Connections Phone 2 [facility] Start: 01-22-2021 End: 08-24-2022 History SDOH Social Connections Living 3 [facility] Start: 01-22-2021 End: 08-24-2022 History SDOH Physical Activity DPW 5 [facility] Start: 01-22-2021 End: 08-24-2022 History SDOH Physical Activity MPS 4 [facility] Start: 07-20-2019 Education 21 [facility] Start: 1975 Sex Assigned At Not on file C [facility] Start: 02-17-2022 End: 06-17-2022 Exposure to SARS-CoV-2 (event) Not sure [facility] Start: 12-26-2013 End: 01-18-2023 Cigarettes smoked current (pack per day) - Reported 0.5 [facility] Start: 12-26-2013 End: 10-02-2022 Tobacco use and exposure Smokeless tobacco non-user [facility] Work Phone: Start: 08-24-2022 History SDOH Alcohol Std Drinks 0 [facility] Start: 08-24-2022 End: 01-18-2023 Social connection and isolation panel [facility] Do you belong to any clubs or organizations such as anabaptism groups, unions, fraternal or athletic groups, or school groups? No [facility] How often do you att end meetings of the clubs or organizations you belong to? Patient refused [facility] Are you now , , , , never or living with a partner? [facility] How often to you hav e a drink containing alcohol? Never [facility] Do you feel stress - tense, restless, nervous, or anxious, or unable to sleep at night because your mind is troubled all the time - these days [OSQ] Only a little [facility] (I/We) worried wheth er (my/our) food would run out before (I/we) got money to buy more. Never true [facility] Do you feel stress - tense, restless, nervous, or anxious, or unable to sleep at night because your mind is troubled all the time - these days [OSQ] To some extent [facility] Clinical Notes 02-19-2015 to 09-20-2023 Alphonso Marroquin MD - 08/26/2023 8:08 AM Dahiana Benoit MA - 08/20/2023 8:30 AM Dahiana Benoit MA - 08/20/2023 8:28 AM Lisset Orr MD - 08/20/2023 8:20 AM ESTPatient Instructions Note Date & Type Note Facility 09-20-2023 Note HNO ID: [id number] Author: ARDEN MUHAMMAD MD Service: ? Author Type: Physician Type: Progress Notes Filed: 09/20/2023 18:42 Note Text: Patient presents with: Follow Up HPI: Patient presents today for office visit for follow up. Since last visit, switched to zepbound for weight loss. We are down 8 lbs. No nausea or vomiting. No chest pain or shortness of breath. No lightheadedness. No palpitations. Has been avoiding sugars. Her cravings are definitely down. Her bmi was over 30 initially. Now down to 28.82. she feels it wearing off a few days before needing to reinject so would like to continue to increase. Also noted that her white count continues to be down. White count and ANC slightly down. I had discussed with rheumatology to see if they thought it might be related to her placquenil. Saw hematology once before. Rheum had asked to have hematology see her again. Referral has been placed. No fever or chills. No signs of infection. Note was copied and pasted, without alteration from last ov: Last seen on 05/28/23 for episodes of heart racing with mild lightheadedness. Sent to ER via squad. Started on Metoprolol 25 mg 1 tablet BID per ER. Followed up with Cardiology 08/20/23. Continuing wit No chest pain or shortness of breath or palpitations. on Metoprolol. Scheduling of catheter ablation procedure for SVT. Weight has been an issue for her pretty much her entire adult life. Has tried weight watchers, calorie counting, watched her sugar intake. Currently exercising approx 3 days a week. Not very vigorously. Does a lot of walking and heavy lifting at work. Discussed dietary intake. Her insurance will cover wegovy per patient. No gerd. SLE: still following with rheumatology. Just had her eye exam. Component Latest Ref Rng AND Units 08/26/2023 09/16/2023 WBC 3.70 - 11.00 k/uL 3.10 (L) 2.97 (L) RBC 3.90 - 5.20 m/uL 4.47 4.50 Hemoglobin 11.5 - 15.5 g/dL 13.2 13.3 Hematocrit 36.0 - 46.0 % 39.4 40.6 MCV 80.0 - 100.0 fL 88.1 90.2 MCH 26.0 - 34.0 pg 29.5 29.6 MCHC 30.5 - 36.0 g/dL 33.5 32.8 RDW-CV 11.5 - 15.0 % 12.9 12.5 Platelet Count 150 - 400 k/uL 275 307 MPV 9.0 - 12.7 fL 9.3 10.1 Neut% % 59.7 46.8 Abs Neut (ANC) 1.45 - 7.50 k/uL 1.85 1.39 (L) Lymph% % 30.6 40.4 Abs Lymph 1.00 - 4.00 k/uL 0.95 (L) 1.20 Avery% % 9.4 11.8 Abs Avery <0.87 k/uL 0.29 0.35 Eosin% % 0.0 0.0 Abs Eosin <0.46 k/uL <0.03 <0.03 Baso% % 0.0 0.0 Abs Baso <0.11 k/uL <0.03 <0.03 Immature Gran % % 0.3 1.0 IMMATURE GRANS (ABS) <0.10 k/uL <0.03 0.03 NRBC /100 WBC 0.0 0.0 Absolute nRBC <0.01 k/uL <0.01 <0.01 DTYPE Auto Auto Protein, Total 6.3 - 8.0 g/dL 6.7 Albumin 3.9 - 4.9 g/dL 4.5 Calcium 8.5 - 10.2 mg/dL 9.5 Bilirubin, Total 0.2 - 1.3 mg/dL 0.4 Alkaline Phosphatase 34 - 123 U/L 53 AST 13 - 35 U/L 11 (L) ALT 7 - 38 U/L 16 Glucose 74 - 99 mg/dL 97 BUN 7 - 21 mg/dL 16 Creatinine 0.58 - 0.96 mg/dL 0.85 Sodium 136 - 144 mmol/L 140 Potassium 3.7 - 5.1 mmol/L 3.9 Chloride 97 - 105 mmol/L 103 CO2 22 - 30 mmol/L 28 Anion Gap 9 - 18 mmol/L 9 eGFR >=60 mL/min/1.73mA? 86 Cholesterol, Total <200 mg/dL 178 Triglyceride <150 mg/dL 54 HDL Cholesterol >39 mg/dL 54 Non HDL Cholesterol <130 mg/dL 124 Fasting Time hrs 12 VLDL Cholesterol <30 mg/dL 11 TC:HDL Ratio <5.10 3.30 LDL Cholesterol <100 mg/dL 113 (H) LDL:HDL Ratio <2.54 2.09 MEDICATIONS: Current Outpatient Medications Medication Sig tirzepatide, weight loss (ZEPBOUND) 2.5 mg/0.5 mL pen injector Inject 2.5 mg subcutaneously one time a week. pantoprazole DR (PROTONIX) 40 mg tablet Take 1 tablet by mouth once daily. metoprolol tartrate, short acting, (LOPRESSOR) 25 mg tablet Take 1 tablet by mouth twice daily. desvenlafaxine ER (PRISTIQ) 100 mg 24 hr tablet Take 1 tablet by mouth once daily. hydrOXYchloroQUINE (PLAQUENIL) 200 mg tablet Take 1 tablet by mouth twice daily. BIOTIN, BULK, MISC once daily. calcium carbonate (CALCIUM 600 ORAL) Take by mouth once daily. mv-min/iron/folic/calcium/vitK (WOMEN'S MULTIVITAMIN ORAL) Take by mouth. No current facility-administered medications for this visit. ALLERGIES: ALLERGIES Allergen Reactions Amoxicillin Hives Doxycycline Hives Influenza A (H1n1) * Hives rash Influenza Virus Vac* Hives Penicillins Hives Sulfa (Sulfonamide * Hives, Shortness of Breath PAST MEDICAL HISTORY Diagnosis Date Abnormal glandular Papanicolaou smear of cervix Abn. Pap smear (cervix) Adjustment reaction with anxiety and depression Arthritis Bradycardia GERD (gastroesophageal reflux disease) IBS (irritable bowel syndrome) Lupus erythematosus, unspecified form PONV (postoperative nausea and vomiting) Raynaud's syndrome Regular wide QRS complex tachycardia 08/19/2023 Right bundle branch block 09/08/2018 Supraventricular tachycardia 07/30/2023 PAST SURGICAL HISTORY Procedure Laterality Date APPENDECTOMY HX ARTHRP INTERPOS INTERCARPAL/ME (more content not included)... [facility] 08-27-2023 Note HNO ID: [id number] Author: Arden Muhammad MD Service: ? Author Type: Physician Type: Progress Notes Filed: 08/27/2023 3:46 PM Note Text: Patient presents with: Follow Up HPI: Patient presents today for office visit for follow up. Last seen on 05/28/23 for episodes of heart racing with mild lightheadedness. Sent to ER via squad. Started on Metoprolol 25 mg 1 tablet BID per ER. Followed up with Cardiology 08/20/23. Continuing wit No chest pain or shortness of breath or palpitations. on Metoprolol. Scheduling of catheter ablation procedure for SVT. Weight has been an issue for her pretty much her entire adult life. Has tried weight watchers, calorie counting, watched her sugar intake. Currently exercising approx 3 days a week. Not very vigorously. Does a lot of walking and heavy lifting at work. Discussed dietary intake. Her insurance will cover wegovy per patient. No gerd. SLE: still following with rheumatology. Just had her eye exam. Component Latest Ref Rng AND Units 08/26/2023 WBC 3.70 - 11.00 k/uL 3.10 (L) RBC 3.90 - 5.20 m/uL 4.47 Hemoglobin 11.5 - 15.5 g/dL 13.2 Hematocrit 36.0 - 46.0 % 39.4 MCV 80.0 - 100.0 fL 88.1 MCH 26.0 - 34.0 pg 29.5 MCHC 30.5 - 36.0 g/dL 33.5 RDW-CV 11.5 - 15.0 % 12.9 Platelet Count 150 - 400 k/uL 275 MPV 9.0 - 12.7 fL 9.3 Neut% % 59.7 Abs Neut (ANC) 1.45 - 7.50 k/uL 1.85 Lymph% % 30.6 Abs Lymph 1.00 - 4.00 k/uL 0.95 (L) Avery% % 9.4 Abs Avery <0.87 k/uL 0.29 Eosin% % 0.0 Abs Eosin <0.46 k/uL <0.03 Baso% % 0.0 Abs Baso <0.11 k/uL <0.03 Immature Gran % % 0.3 IMMATURE GRANS (ABS) <0.10 k/uL <0.03 NRBC /100 WBC 0.0 Absolute nRBC <0.01 k/uL <0.01 DTYPE Auto Protein, Total 6.3 - 8.0 g/dL 6.7 Albumin 3.9 - 4.9 g/dL 4.5 Calcium 8.5 - 10.2 mg/dL 9.5 Bilirubin, Total 0.2 - 1.3 mg/dL 0.4 Alkaline Phosphatase 34 - 123 U/L 53 AST 13 - 35 U/L 11 (L) ALT 7 - 38 U/L 16 Glucose 74 - 99 mg/dL 97 BUN 7 - 21 mg/dL 16 Creatinine 0.58 - 0.96 mg/dL 0.85 Sodium 136 - 144 mmol/L 140 Potassium 3.7 - 5.1 mmol/L 3.9 Chloride 97 - 105 mmol/L 103 CO2 22 - 30 mmol/L 28 Anion Gap 9 - 18 mmol/L 9 eGFR >=60 mL/min/1.73mA? 86 Cholesterol, Total <200 mg/dL 178 Triglyceride <150 mg/dL 54 HDL Cholesterol >39 mg/dL 54 Non HDL Cholesterol <130 mg/dL 124 Fasting Time hrs 12 VLDL Cholesterol <30 mg/dL 11 TC:HDL Ratio <5.10 3.30 LDL Cholesterol <100 mg/dL 113 (H) LDL:HDL Ratio <2.54 2.09 MEDICATIONS: Current Outpatient Medications Medication Sig pantoprazole DR (PROTONIX) 40 mg tablet Take 1 tablet by mouth once daily. metoprolol tartrate, short acting, (LOPRESSOR) 25 mg tablet Take 1 tablet by mouth twice daily. desvenlafaxine ER (PRISTIQ) 100 mg 24 hr tablet Take 1 tablet by mouth once daily. hydrOXYchloroQUINE (PLAQUENIL) 200 mg tablet Take 1 tablet by mouth twice daily. BIOTIN, BULK, MISC once daily. calcium carbonate (CALCIUM 600 ORAL) Take by mouth once daily. mv-min/iron/folic/calcium/vitK (WOMEN'S MULTIVITAMIN ORAL) Take by mouth. No current facility-administered medications for this visit. ALLERGIES: ALLERGIES Allergen Reactions Amoxicillin Hives Doxycycline Hives Influenza A (H1n1) * Hives rash Influenza Virus Vac* Hives Penicillins Hives Sulfa (Sulfonamide * Hives, Shortness of Breath PAST MEDICAL HISTORY Diagnosis Date Abnormal glandular Papanicolaou smear of cervix Abn. Pap smear (cervix) Adjustment reaction with anxiety and depression Arthritis Bradycardia GERD (gastroesophageal reflux disease) IBS (irritable bowel syndrome) Lupus erythematosus, unspecified form PONV (postoperative nausea and vomiting) Raynaud's syndrome Regular wide QRS complex tachycardia 08/19/2023 Right bundle branch block 09/08/2018 Supraventricular tachycardia 07/30/2023 PAST SURGICAL HISTORY Procedure Laterality Date APPENDECTOMY HX ARTHRP INTERPOS INTERCARPAL/METACARPAL JOINTS Left 07/07/2023 Left thumb CMC arthroplasty with tendon transfer and suspension, and 1st dorsal compartment release COLONOSCOPY 10/02/2022 repeat in 10 years ESOPHAGOGASTRODUODENOSCOPY TRANSORAL DIAGNOSTIC 02/27/2015 EGD HSG 12/26/2009 Left Tube Patent, Essure Coils in Right Tube HSG 01/09/2010 Repeat Essure - Left Tube HYSTEROSCOPY BI TUBE OCCLUSION W/PERM IMPLNTS 10/01/2009 Essure Sterilization IUD REMOVAL (STRUCTURAL TEST ENGINEER DEPT)_*FL 10/01/2009 Mirena LAPAROSCOPIC APPENDECTOMY 06/01/2013 early appendicitis OFFICE LEEP 12/05/2008 GENO 3 PAST SURGICAL HISTORY OF Extraction of wisdom teeth PAST SURGICAL HISTORY OF 09/06/2009 One tooth removed FAMILY HISTORY Problem Relation Age of Onset No Known Problems Mother Heart Father Aortic Stenosis COPD Father Thyroid Father No Known Problems Brother Heart Maternal Grandmother aortic stenosis Heart Paternal Grandmother Bipolar disorder Son No Known Problems Son Coronary Artery Disease Paternal Uncle [place] Social History Toba (more content not included)... [facility] 08-26-2023 Note HNO ID: [id number] Author: Colleen Webber OT/L Service: ? Author Type: Occupational Therapist Type: Progress Notes Filed: 08/26/2023 1:59 PM Note Text: Episode Visit Count: 6 Therapist That Will Accept/Oversee The Plan Of Care: Akbar Macias Start of Care Date: 07/20/23 Onset Date: 07/07/23 Plan of Care Certification Date: 07/20/23 Next Certification Due Date: 09/17/23 Patient Identified by Name and Date of : Yes REHABILITATION AND SPORTS THERAPY OCCUPATIONAL THERAPY DISCONTINUANCE OF CARE PLAN OF CARE UPDATE: Assessment: Elvia Fragoso is discontinued from Occupational Therapy services due to goal achievement and maximal benefit.. Patient was seen for 6 visits from Start of Care Date: 07/20/23 to 08/26/2023 and treatment included: Therapeutic exercise, Self-intermediate management, and Custom orthosis fabrication. Goals for Episode of Care created on 07/20/23 through 09/17/23 Patient will report a good understanding of diagnosis and OT recommendations for progression of program.PROGRESSING MET Patient will demonstrate independence with ongoing home recommendations/exercise program throughout therapy plan of care.PROGRESSING MET Patient will increase AROM of Left wrist and hand to WFL in order to be able to improve function for prior functional tasks.PROGRESSING MET Patient will independently demonstrate correct application of CUSTOM orthosis and verbalize understanding of proper wear/care. PROGRESSING MET Patient will report a good understanding of edema control, scar / wound management throughout therapy plan of care to promote non-adherent / non-tender soft tissue.PROGRESSING MET Patient will independently demonstrate good joint protection/body mechanics/postural control techniques during prior functional tasks.PROGRESSING MET Patient Goals: to resume full function SUBJECTIVE: 7 week + CMC arthroplasty reports hse is able to do most activities Pain: Pain Pain Level: 0 PROMIS Scales Higher is Better 08/14/2023 07/19/2023 07/14/2023 Phys Func - Score 43 (mild dysfunction) - 49 (within normal limits) Phys Func - Percentile 24% - 46% Self-Eff Symptom - Score 54 (Average) 52 (Average) - Self-Eff Symptom - Percentile 66% 58% - T-scores: mean of general population = 50. 5 points is clinically meaningfully difference Percentiles provide an indication of how the patient's score ranks in relation to the general population. Higher percentile rankings indicate better function/quality of life. 50th percentile is the average of the general population and indicates half of respondents had a worse score. OBJECTIVE MEASURES WITH LEVEL OF FUNCTION: Hand Strength: Pharmacy Director Position 2, Pinch Meter Hand Strength R Pharmacy Director Position 2 (lbs): 75 lbs L Pharmacy Director Position 2 (lbs): 25 lbs R Lateral Pinch (lbs): 16 lbs R Tripod/ 3 Jaw Praful (lbs): 14 lbs R Tip Pinch (lbs): 15 lbs L Lateral Pinch (lbs): 5 lbs L Tripod/ 3 Jaw Praful (lbs): 2.5 lbs L Tip Pinch (lbs): 2.5 lbs UE AROM L Wrist Extension: 60 Degrees L Wrist Flexion: 55 Degrees L Wrist Radial Deviation: 20 Degrees L Wrist Ulnar Deviation: 30 Degrees Hand AROM L Thumb MP Flexion : 50 Degrees L Thumb IP Flexion : 65 Degrees L Thumb Radial Abduction: 75 Degrees L Thumb Palmar Abduction: 70 Degrees TREATMENT: Therapeutic Exercise: 1: Objective data taken and recorded 2: AROM Hand and wrist 3: with red putty induction coordination engineer, digit extension digit flexion 4: with medium red putty digit flexion tripod pinch thumb flex ext 5: with medium red putty palmar adduction radial adduction and lateral pinch Skilled Intervention: Patient was educated in proper exercise technique and purpose for exercises. Billing Total Session Time (minutes): 31 Session Start Time : 1325 Session Stop Time : 1356 Colleen Webber OT/[facility] 08-26-2023 Note HNO ID: [id number] Author: Alphonso Marroquin MD Service: ? Author Type: Physician Type: Progress Notes Filed: 08/26/2023 9:21 AM Note Text: Alphonso Marroquin MD Department of Orthopaedics Orthopaedics [address] [facility] [address] Dept: [phone] Dept August 26, 2023 CHIEF COMPLAINT: Established Patient and Post Op of the Left Hand. HPI Patient is 7 weeks 1 day post op left thumb CMC arthroplasty with tendon transfer and suspension and 1st dorsal compartment release. Patient denies any pain. ASSESSMENT: M18.12 Primary osteoarthritis of first carpometacarpal joint of left hand (primary encounter diagnosis) SUMMARY/PLAN: She is 7 weeks out from surgery and has significant improvement in her pain from preoperative. She is working on strengthening and actually made some gains as early as yesterday which she is pleased about. She is going to continue her strengthening program. She may consider surgery on the right thumb down a lot. She will let us know about that in the future. Exam: Healed incision. Good range of motion. Neurovascular intact. Supporting Information Below: Medications: Current Outpatient Medications Medication Sig pantoprazole DR (PROTONIX) 40 mg tablet Take 1 tablet by mouth once daily. metoprolol tartrate, short acting, (LOPRESSOR) 25 mg tablet Take 1 tablet by mouth twice daily. desvenlafaxine ER (PRISTIQ) 100 mg 24 hr tablet Take 1 tablet by mouth once daily. hydrOXYchloroQUINE (PLAQUENIL) 200 mg tablet Take 1 tablet by mouth twice daily. BIOTIN, BULK, MISC once daily. calcium carbonate (CALCIUM 600 ORAL) Take by mouth once daily. mv-min/iron/folic/calcium/vitK (WOMEN'S MULTIVITAMIN ORAL) Take by mouth. No current facility-administered medications for this visit. Allergies: Amoxicillin, Doxycycline, Influenza A (H1n1) Vac 09 (Pf), Influenza Virus Vaccines, Penicillins, and Sulfa (Sulfonamide Antibiotics) Alphonso Marroquin MD [facility] 08-26-2023 History of Present illness Narrative Alphonso Marroquin MD Department of Orthopaedics Orthopaedics [address] [facility] [address] Dept: [phone] Dept August 26, 2023 CHIEF COMPLAINT: Established Patient and Post Op of the Left Hand. HPI Patient is 7 weeks 1 day post op left thumb CMC arthroplasty with tendon transfer and suspension and 1st dorsal compartment release. Patient denies any pain. ASSESSMENT: M18.12 Primary osteoarthritis of first carpometacarpal joint of left hand (primary encounter diagnosis) SUMMARY/PLAN: She is 7 weeks out from surgery and has significant improvement in her pain from preoperative. She is working on strengthening and actually made some gains as early as yesterday which she is pleased about. She is going to continue her strengthening program. She may consider surgery on the right thumb down a lot. She will let us know about that in the future. Exam: Healed incision. Good range of motion. Neurovascular intact. Supporting Information Below: Medications: Current Outpatient Medications Medication Sig pantoprazole DR (PROTONIX) 40 mg tablet Take 1 tablet by mouth once daily. metoprolol tartrate, short acting, (LOPRESSOR) 25 mg tablet Take 1 tablet by mouth twice daily. desvenlafaxine ER (PRISTIQ) 100 mg 24 hr tablet Take 1 tablet by mouth once daily. hydrOXYchloroQUINE (PLAQUENIL) 200 mg tablet Take 1 tablet by mouth twice daily. BIOTIN, BULK, MISC once daily. calcium carbonate (CALCIUM 600 ORAL) Take by mouth once daily. mv-min/iron/folic/calcium/vitK (WOMEN'S MULTIVITAMIN ORAL) Take by mouth. No current facility-administered medications for this visit. Allergies: Amoxicillin, Doxycycline, Influenza A (H1n1) Vac 09 (Pf), Influenza Virus Vaccines, Penicillins, and Sulfa (Sulfonamide Antibiotics) Alphonso Marroquin MD documented in this encounter [facility] 08-20-2023 Note HNO ID: [id number] Author: Lisset Hill MD Service: ? Author Type: Physician Type: Progress Notes Filed: 08/20/2023 6:35 PM Note Text: PRIMARY CARE PHYSICIAN: Arden Muhammad [address] [place] [address] REFERRING PHYSICIAN: Pelon Escoto MD ([facility]) [address] [address] Patient Care Team: Arden Muhammad MD as PCP - General (Family Medicine) Pelon Escoto MD as Specialty Acid Supervisor (Cardiology) Genna Romero MD as Specialty Acid Supervisor (Rheumatology) Alphonso Marroquin MD as Specialty Acid Supervisor (Orthopedics) CHIEF COMPLAINT: Evaluation for arrhythmia HISTORY OF PRESENT ILLNESS: Ms. Fragoso is a 48 year old female who presents today for evaluation of arrhythmia, supraventricular tachycardia (SVT). She experiences palpitations, tachycardia, feels it in the throat . No shortness of breath or chest pain. First occurred 2018. Multiple episodes. Episodes would last a couple hours. No triggering or exacerbating factors. Saw PCP. Was told it was panic attacks. She would have maybe an episode or two a year. In April had an episode lasting for several hours, all day long and into the nighttime. She recalls heart rates 140s bpm range. Another episode in May, went to see PCP. She was found to have SVT, was sent to [place] [facility]. She was given IV adenosine and the SVT terminated. She was treated with metoprolol, with some improvement. She still has palpitations but not the prolonged episodes of tachycardia. Was evaluated by Dr. Escoto, referred to EP for evaluation, consideration of catheter ablation. I have confirmed and edited as necessary, the PFSH and ROS obtained by others. PAST MEDICAL HISTORY Diagnosis Date Abnormal glandular Papanicolaou smear of cervix Abn. Pap smear (cervix) Adjustment reaction with anxiety and depression Arthritis Bradycardia GERD (gastroesophageal reflux disease) IBS (irritable bowel syndrome) Lupus erythematosus, unspecified form PONV (postoperative nausea and vomiting) Raynaud's syndrome Regular wide QRS complex tachycardia 08/19/2023 Right bundle branch block 09/08/2018 Supraventricular tachycardia 07/30/2023 PAST SURGICAL HISTORY Procedure Laterality Date APPENDECTOMY HX ARTHRP INTERPOS INTERCARPAL/METACARPAL JOINTS Left 07/07/2023 Left thumb CMC arthroplasty with tendon transfer and suspension, and 1st dorsal compartment release COLONOSCOPY 10/02/2022 repeat in 10 years ESOPHAGOGASTRODUODENOSCOPY TRANSORAL DIAGNOSTIC 02/27/2015 EGD HSG 12/26/2009 Left Tube Patent, Essure Coils in Right Tube HSG 01/09/2010 Repeat Essure - Left Tube HYSTEROSCOPY BI TUBE OCCLUSION W/PERM IMPLNTS 10/01/2009 Essure Sterilization IUD REMOVAL (STRUCTURAL TEST ENGINEER DEPT)_*FL 10/01/2009 Mirena LAPAROSCOPIC APPENDECTOMY 06/01/2013 early appendicitis OFFICE LEEP 12/05/2008 GENO 3 PAST SURGICAL HISTORY OF Extraction of wisdom teeth PAST SURGICAL HISTORY OF 09/06/2009 One tooth removed SOCIAL HISTORY Social History Tobacco Use Smoking status: Former Packs/day: 0.50 Years: 12.00 Additional pack years: 0.00 Total pack years: 6.00 Types: Cigarettes Quit date: 12/06/2007 Years since quittin.7 Smokeless tobacco: Never Vaping Use Vaping Use: Never used Substance Use Topics Alcohol use: Not Currently Comment: Rarely Drug use: No FAMILY HISTORY Problem Relation Age of Onset No Known Problems Mother Heart Father Aortic Stenosis COPD Father Thyroid Father No Known Problems Brother Heart Maternal Grandmother aortic stenosis Heart Paternal Grandmother Bipolar disorder Son No Known Problems Son Coronary Artery Disease Paternal Uncle [place] ALLERGIES: ALLERGIES Allergen Reactions Amoxicillin Hives Doxycycline Hives Influenza A (H1n1) * Hives rash Influenza Virus Vac* Hives Penicillins Hives Sulfa (Sulfonamide * Hives, Shortness of Breath MEDICATIONS: pantoprazole DR (PROTONIX) 40 mg tablet Take 1 tablet by mouth once daily. metoprolol tartrate, short acting, (LOPRESSOR) 25 mg tablet Take 1 tablet by mouth twice daily. desvenlafaxine ER (PRISTIQ) 100 mg 24 hr tablet Take 1 tablet by mouth once daily. hydrOXYchloroQUINE (PLAQUENIL) 200 mg tablet Take 1 tablet by mouth twice daily. BIOTIN, BULK, MISC once daily. calcium carbonate (CALCIUM 600 ORAL) Take by mouth once daily. mv-min/iron/folic/calcium/vitK (WOMEN'S MULTIVITAMIN ORAL) Take by mouth. REVIEW OF SYSTEMS: Review of Systems Constitutional: Positive for malaise/fatigue. Negative for chills and fever. Respiratory: Negative for cough, hemoptysis, sputum production, shortness of breath and wheezing. Cardiovascular: Positive for palpitations. Negative for chest pain, orthopnea, claudication, leg swelling and PND. Gastrointestinal: Negative for abdominal pain, blood in stool, melena, nausea and vomiting. Genitourinary: Negative for hematu (more content not included)... [facility] 08-20-2023 Nurse Note Patient did have some palpitations and chest pain this morning, but has subsided. No other complaints today. Patient has no cardiac complaints today. Dahiana Salamanca CMA documented in this encounter [facility] 08-20-2023 History of Present illness Narrative PRIMARY CARE PHYSICIAN: Arden Muhammad [address] [place] [address] REFERRING PHYSICIAN: Pelon Escoto MD ([facility]) [address] [facility] [address] Patient Care Team: Arden Muhammad MD as PCP - General (Family Medicine) Pelon Escoto MD as Specialty Acid Supervisor (Cardiology) Genna Romero MD as Specialty Acid Supervisor (Rheumatology) Alphonso Marroquin MD as Specialty Acid Supervisor (Orthopedics) CHIEF COMPLAINT: Evaluation for arrhythmia HISTORY OF PRESENT ILLNESS: Ms. Fragoso is a 48 year old female who presents today for evaluation of arrhythmia, supraventricular tachycardia (SVT). She experiences palpitations, tachycardia, feels it in the throat . No shortness of breath or chest pain. First occurred 2018. Multiple episodes. Episodes would last a couple hours. No triggering or exacerbating factors. Saw PCP. Was told it was panic attacks. She would have maybe an episode or two a year. In April had an episode lasting for several hours, all day long and into the nighttime. She recalls heart rates 140s bpm range. Another episode in May, went to see PCP. She was found to have SVT, was sent to [place] [facility]. She was given IV adenosine and the SVT terminated. She was treated with metoprolol, with some improvement. She still has palpitations but not the prolonged episodes of tachycardia. Was evaluated by Dr. Escoto, referred to EP for evaluation, consideration of catheter ablation. I have confirmed and edited as necessary, the PFSH and ROS obtained by others. PAST MEDICAL HISTORY Diagnosis Date Abnormal glandular Papanicolaou smear of cervix Abn. Pap smear (cervix) Adjustment reaction with anxiety and depression Arthritis Bradycardia GERD (gastroesophageal reflux disease) IBS (irritable bowel syndrome) Lupus erythematosus, unspecified form PONV (postoperative nausea and vomiting) Raynaud's syndrome Regular wide QRS complex tachycardia 08/19/2023 Right bundle branch block 09/08/2018 Supraventricular tachycardia 07/30/2023 PAST SURGICAL HISTORY Procedure Laterality Date APPENDECTOMY HX ARTHRP INTERPOS INTERCARPAL/METACARPAL JOINTS Left 07/07/2023 Left thumb CMC arthroplasty with tendon transfer and suspension, and 1st dorsal compartment release COLONOSCOPY 10/02/2022 repeat in 10 years ESOPHAGOGASTRODUODENOSCOPY TRANSORAL DIAGNOSTIC 02/27/2015 EGD HSG 12/26/2009 Left Tube Patent, Essure Coils in Right Tube HSG 01/09/2010 Repeat Essure - Left Tube HYSTEROSCOPY BI TUBE OCCLUSION W/PERM IMPLNTS 10/01/2009 Essure Sterilization IUD REMOVAL (STRUCTURAL TEST ENGINEER DEPT)_*FL 10/01/2009 Mirena LAPAROSCOPIC APPENDECTOMY 06/01/2013 early appendicitis OFFICE LEEP 12/05/2008 GENO 3 PAST SURGICAL HISTORY OF Extraction of wisdom teeth PAST SURGICAL HISTORY OF 09/06/2009 One tooth removed SOCIAL HISTORY Social History Tobacco Use Smoking status: Former Packs/day: 0.50 Years: 12.00 Additional pack years: 0.00 Total pack years: 6.00 Types: Cigarettes Quit date: 12/06/2007 Years since quittin.7 Smokeless tobacco: Never Vaping Use Vaping Use: Never used Substance Use Topics Alcohol use: Not Currently Comment: Rarely Drug use: No FAMILY HISTORY Problem Relation Age of Onset No Known Problems Mother Heart Father Aortic Stenosis COPD Father Thyroid Father No Known Problems Brother Heart Maternal Grandmother aortic stenosis Heart Paternal Grandmother Bipolar disorder Son No Known Problems Son Coronary Artery Disease Paternal Uncle [place] ALLERGIES: ALLERGIES Allergen Reactions Amoxicillin Hives Doxycycline Hives Influenza A (H1n1) * Hives rash Influenza Virus Vac* Hives Penicillins Hives Sulfa (Sulfonamide * Hives, Shortness of Breath MEDICATIONS: pantoprazole DR (PROTONIX) 40 mg tablet Take 1 tablet by mouth once daily. metoprolol tartrate, short acting, (LOPRESSOR) 25 mg tablet Take 1 tablet by mouth twice daily. desvenlafaxine ER (PRISTIQ) 100 mg 24 hr tablet Take 1 tablet by mouth once daily. hydrOXYchloroQUINE (PLAQUENIL) 200 mg tablet Take 1 tablet by mouth twice daily. BIOTIN, BULK, MISC once daily. calcium carbonate (CALCIUM 600 ORAL) Take by mouth once daily. mv-min/iron/folic/calcium/vitK (WOMEN'S MULTIVITAMIN ORAL) Take by mouth. REVIEW OF SYSTEMS: Review of Systems Constitutional: Positive for malaise/fatigue. Negative for chills and fever. Respiratory: Negative for cough, hemoptysis, sputum production, shortness of breath and wheezing. Cardiovascular: Positive for palpitations. Negative for chest pain, orthopnea, claudication, leg swelling and PND. Gastrointestinal: Negative for abdominal pain, blood in stool, melena, nausea and vomiting. Genitourinary: Negative for hematuria. Musculoskeletal: Negative for falls and myalgias. Skin: Negative for rash. Neurological: Negative for dizziness, focal weakness, seizures and loss of consciousness. PHYSICAL EXAMINATION: BP 152/77 Pulse 71 Ht 5' 7 (1.70m) Wt 186 lb (84.4kg) SpO2 98% LMP 06/09/2023 BMI 29.12 kg/(m^2). Physical Exam Vitals reviewed. Constitutional: General: She is not in acute distress. Appearance: Normal appearance. HENT: Head: Normocephalic and atraumatic. Cardiovascular: Rate and Rhythm: Normal rate and regular rhythm. Heart sounds: Normal heart sounds, S1 normal and S2 normal. No murmur heard. No friction rub. Pulmonary: Effort: Pulmonary effort is normal. No respiratory distress. Breath sounds: Normal breath sounds. No wheezing, rhonchi or rales. Musculoskeletal: Cervical back: Neck supple. Right lower leg: No edema. Left lower leg: No edema. Skin: General: Skin is warm and dry. Neurological: General: No focal deficit present. Mental Status: She is alert and oriented to person, place, and time. Psychiatric: Mood and Affect: Mood normal. Behavior: Behavior normal. Thought Content: Thought content normal. CARDIOVASCULAR MEDICINE TESTING: Electrocardiogram: Sinus rhythm 69 bpm; normal AK interval 126 ms; nonspecific IVCD (QRS duration 120 ms); QTc 486 ms; no obvious ventricular preexcitation AKA WPW patterns, no Brugada patterns I have personally reviewed the Electrocardiogram. 1. Supraventricular tachycardia - ICD9: 427.89, ICD10: I47.10 (primary diagnosis) 2. Regular wide QRS complex tachycardia - ICD9: 785.0, ICD10: R00.0 3. Right bundle branch block - ICD9: 426.4, ICD10: I45.10 4. Palpitations - ICD9: 785.1, ICD10: R00.2 IMPRESSION: Ms. Fragoso has symptomatic tachycardia that is most likely supraventricular tachycardia (SVT). Arrhythmia was wide-complex, due to underlying right bundle branch block. 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 Such SVTs are typically AV lyric reentry tachycardia (AVNRT) or AV reciprocating tachycardia (AVRT) using a concealed accessory pathway. She does not have manifest accessory pathway by EKG, such as ventricular preexcitation AKA Pzbyi-Atrotnzdq-Cqjro (WPW) pattern. The importance of the SVT being likely AV node dependent is the fact that such SVTs are highly curable with catheter ablation at a very low risk for serious complications. I did discuss with Ms. Fragoso the topic of SVT and the treatment options. I did review with her the medical options including beta-lakisha therapy as she is already taking, or consideration of a nondihydropyridine calcium channel lakisha (diltiazem, verapamil). I also reviewed with her the option of catheter ablation. As noted above, with the risk to benefit of catheter ablation being so favorable, that is, very low risk with very high efficacy, catheter ablation can be offered as first-line treatment option. She is already experiencing fatigue that she attributes to the beta-lakisha, and she would rather not take medication long-term. Therefore she is very much in favor of a curative approach with catheter ablation. I had a detailed discussion with Ms. Fragoso regarding my evaluation and recommendations. After our discussion, Ms. Fragoso expressed her understanding and I answered all her questions to her apparent satisfaction. She wishes to proceed with catheter ablation. PLAN AND RECOMMENDATIONS: Proceed with scheduling of catheter ablation procedure for SVT. She will need to be reminded to hold metoprolol a week prior to the procedure. My office will be contacting her to schedule the procedure. Lisset Hill MD 08/20/2023 Medical Decision Making: Problems: Moderate: New problem with uncertain prognosis Data: Unique source(s) for external note(s) reviewed: 1 Unique test result(s) reviewed: 3+ Unique test(s) ordered: 1 Risk: Moderate: Moderate risk from testing/treatment, Drug management and Decision on minor surgery w/ risk factors Medical Decision Making Level: 4 - Moderate documented in this encounter [facility] 08-17-2023 Note HNO ID: [id number] Author: Colleen Webber, OT/L Service: ? Author Type: Occupational Therapist Type: Progress Notes Filed: 08/17/2023 1:57 PM Note Text: Episode Visit Count: 5 Therapist That Will Accept/Oversee The Plan Of Care: Akbar Macias Start of Care Date: 07/20/23 Onset Date: 07/07/23 Plan of Care Certification Date: 07/20/23 Next Certification Due Date: 09/17/23 Patient Identified by Name and Date of : Yes REHABILITATION AND SPORTS THERAPY OCCUPATIONAL THERAPY PROGRESS REPORT PLAN OF CARE UPDATE: Assessment: Elvia Persaud Scale demonstrates moderate improvement in weight bearing, gripping, and pinching. She has progressed toward goals. Patient continues to present with impairments in strength that interfere with . Current prognosis is . GOOD She will benefit from continued skilled therapy services to meet the updated goals for this plan of care as noted below. Goals for Episode of Care created on 07/20/23 through 09/17/23 Patient will report a good understanding of diagnosis and OT recommendations for progression of program.PROGRESSING Patient will demonstrate independence with ongoing home recommendations/exercise program throughout therapy plan of care.PROGRESSING Patient will increase AROM of Left wrist and hand to WFL in order to be able to improve function for prior functional tasks.PROGRESSING Patient will independently demonstrate correct application of CUSTOM orthosis and verbalize understanding of proper wear/care. PROGRESSING Patient will report a good understanding of edema control, scar / wound management throughout therapy plan of care to promote non-adherent / non-tender soft tissue.PROGRESSING Patient will independently demonstrate good joint protection/body mechanics/postural control techniques during prior functional tasks.PROGRESSING Patient Goals: to resume full function Planned Interventions, Frequency, and Duration: 1x/week, 3 weeks Planned Treatment Interventions: Therapeutic exercise (34692) SUBJECTIVE: 6 weeks cmc arthroplasty un able to stray from a bottle Pain: PROMIS Scales Higher is Better 08/14/2023 07/19/2023 07/14/2023 Phys Func - Score 43 (mild dysfunction) - 49 (within normal limits) Phys Func - Percentile 24% - 46% Self-Eff Symptom - Score 54 (Average) 52 (Average) - Self-Eff Symptom - Percentile 66% 58% - T-scores: mean of general population = 50. 5 points is clinically meaningfully difference Percentiles provide an indication of how the patient's score ranks in relation to the general population. Higher percentile rankings indicate better function/quality of life. 50th percentile is the average of the general population and indicates half of respondents had a worse score. OBJECTIVE MEASURES WITH LEVEL OF FUNCTION: Hand Strength: Pharmacy Director Position 2, Pinch Meter Hand Strength L Pharmacy Director Position 2 (lbs): 25 lbs L Lateral Pinch (lbs): 3.5 lbs L Tripod/ 3 Jaw Praful (lbs): 2 lbs L Tip Pinch (lbs): 2 lbs UE AROM L Wrist Extension: 60 Degrees L Wrist Flexion: 55 Degrees Hand AROM L Thumb MP Flexion : 50 Degrees L Thumb IP Flexion : 65 Degrees L Thumb Radial Abduction: 75 Degrees L Thumb Palmar Abduction: 70 Degrees TREATMENT: Therapeutic Exercise: 1: Objective data taken and recorded 2: AROM Hand and wrist while in fluido therapy 3: notched pegs 4: CMC strengthening Skilled Intervention: Patient was educated in proper exercise technique and purpose for exercises. Skilled judgment was used in selection of appropriate interventions. Billing Therapeutic Exercise Treatment Minutes: 39 Total Session Time (minutes): 39 Session Start Time : 1315 Session Stop Time : 1354 Colleen Webber OT/[facility] 08-17-2023 History of Present illness Narrative Episode Visit Count: 5 Therapist That Will Accept/Oversee The Plan Of Care: Akbar Colleen Start of Care Date: 07/20/23 Onset Date: 07/07/23 Plan of Care Certification Date: 07/20/23 Next Certification Due Date: 09/17/23 Patient Identified by Name and Date of : Yes REHABILITATION AND SPORTS THERAPY OCCUPATIONAL THERAPY PROGRESS REPORT PLAN OF CARE UPDATE: Assessment: Elvia Persaud Scale demonstrates moderate improvement in weight bearing, gripping, and pinching. She has progressed toward goals. Patient continues to present with impairments in strength that interfere with . Current prognosis is . GOOD She will benefit from continued skilled therapy services to meet the updated goals for this plan of care as noted below. Goals for Episode of Care created on 07/20/23 through 09/17/23 Patient will report a good understanding of diagnosis and OT recommendations for progression of program.PROGRESSING Patient will demonstrate independence with ongoing home recommendations/exercise program throughout therapy plan of care.PROGRESSING Patient will increase AROM of Left wrist and hand to WFL in order to be able to improve function for prior functional tasks.PROGRESSING Patient will independently demonstrate correct application of CUSTOM orthosis and verbalize understanding of proper wear/care. PROGRESSING Patient will report a good understanding of edema control, scar / wound management throughout therapy plan of care to promote non-adherent / non-tender soft tissue.PROGRESSING Patient will independently demonstrate good joint protection/body mechanics/postural control techniques during prior functional tasks.PROGRESSING Patient Goals: to resume full function Planned Interventions, Frequency, and Duration: 1x/week, 3 weeks Planned Treatment Interventions: Therapeutic exercise (64821) SUBJECTIVE: 6 weeks cmc arthroplasty un able to stray from a bottle Pain: PROMIS Scales Higher is Better 08/14/2023 07/19/2023 07/14/2023 Phys Func - Score 43 (mild dysfunction) - 49 (within normal limits) Phys Func - Percentile 24% - 46% Self-Eff Symptom - Score 54 (Average) 52 (Average) - Self-Eff Symptom - Percentile 66% 58% - T-scores: mean of general population = 50. 5 points is clinically meaningfully difference Percentiles provide an indication of how the patient's score ranks in relation to the general population. Higher percentile rankings indicate better function/quality of life. 50th percentile is the average of the general population and indicates half of respondents had a worse score. OBJECTIVE MEASURES WITH LEVEL OF FUNCTION: Hand Strength: Pharmacy Director Position 2, Pinch Meter Hand Strength L Pharmacy Director Position 2 (lbs): 25 lbs L Lateral Pinch (lbs): 3.5 lbs L Tripod/ 3 Jaw Praful (lbs): 2 lbs L Tip Pinch (lbs): 2 lbs UE AROM L Wrist Extension: 60 Degrees L Wrist Flexion: 55 Degrees Hand AROM L Thumb MP Flexion : 50 Degrees L Thumb IP Flexion : 65 Degrees L Thumb Radial Abduction: 75 Degrees L Thumb Palmar Abduction: 70 Degrees TREATMENT: Therapeutic Exercise: 1: Objective data taken and recorded 2: AROM Hand and wrist while in fluido therapy 3: notched pegs 4: CMC strengthening Skilled Intervention: Patient was educated in proper exercise technique and purpose for exercises. Skilled judgment was used in selection of appropriate interventions. Billing Therapeutic Exercise Treatment Minutes: 39 Total Session Time (minutes): 39 Session Start Time : 1315 Session Stop Time : 1354 JESIKA Velasco documented in this encounter [facility] 08-10-2023 Note HNO ID: [id number] Author: Colleen Webber OT/L Service: ? Author Type: Occupational Therapist Type: Progress Notes Filed: 08/10/2023 1:55 PM Note Text: Episode Visit Count: 4 Therapist That Will Accept/Oversee The Plan Of Care: Akbar Macias Start of Care Date: 07/20/23 Onset Date: 07/07/23 Plan of Care Certification Date: 07/20/23 Next Certification Due Date: 09/17/23 Patient Identified by Name and Date of : Yes REHABILITATION AND SPORTS THERAPY OCCUPATIONAL THERAPY TREATMENT NOTE ASSESSMENT: Elvia Fragoso tolerated the session with expected muscle soreness. She demonstrated difficulty with strength. The patient will continue to benefit from ongoing skilled occupational therapy to progress toward set goals. PLAN FOR NEXT VISIT: AK SUBJECTIVE: 5 weeks cmc arthroplasty reports intermittent soreness reports she is doing more at home Pain: Pain Pain Level: 2 OBJECTIVE MEASURES WITH LEVEL OF FUNCTION: TREATMENT: Therapeutic Exercise: 1: Objective data taken and recorded 2: AROM Hand and wrist while in fluido therapy 3: AROM Left hand and wrist while in fluido at 105 x 10 minutes 4: with soft putty induction coordination engineer, digit flexion thumb flex ext 5: digit extension and tripofd pinch Skilled Intervention: Patient was educated in proper exercise technique and purpose for exercises. Skilled judgment was used in selection of appropriate interventions. Billing Therapeutic Exercise Treatment Minutes: 39 Total Session Time (minutes): 39 Session Start Time : 1315 Session Stop Time : 1354 Colleen Webber OT/[facility] 08-10-2023 History of Present illness Narrative Episode Visit Count: 4 Therapist That Will Accept/Oversee The Plan Of Care: Akbar Macias Start of Care Date: 07/20/23 Onset Date: 07/07/23 Plan of Care Certification Date: 07/20/23 Next Certification Due Date: 09/17/23 Patient Identified by Name and Date of : Yes REHABILITATION AND SPORTS THERAPY OCCUPATIONAL THERAPY TREATMENT NOTE ASSESSMENT: Elvia Fragoso tolerated the session with expected muscle soreness. She demonstrated difficulty with strength. The patient will continue to benefit from ongoing skilled occupational therapy to progress toward set goals. PLAN FOR NEXT VISIT: AK SUBJECTIVE: 5 weeks cmc arthroplasty reports intermittent soreness reports she is doing more at home Pain: Pain Pain Level: 2 OBJECTIVE MEASURES WITH LEVEL OF FUNCTION: TREATMENT: Therapeutic Exercise: 1: Objective data taken and recorded 2: AROM Hand and wrist while in fluido therapy 3: AROM Left hand and wrist while in fluido at 105 x 10 minutes 4: with soft putty induction coordination engineer, digit flexion thumb flex ext 5: digit extension and tripofd pinch Skilled Intervention: Patient was educated in proper exercise technique and purpose for exercises. Skilled judgment was used in selection of appropriate interventions. Billing Therapeutic Exercise Treatment Minutes: 39 Total Session Time (minutes): 39 Session Start Time : 1315 Session Stop Time : 1354 JESIKA Velasco documented in this encounter [facility] 08-03-2023 Note HNO ID: [id number] Author: Alphonso Marroquin MD Service: ? Author Type: Physician Type: Progress Notes Filed: 08/30/2023 7:19 PM Note Text: Alphonso Marroquin MD Department of Orthopaedics Orthopaedics [address] [place] [address] Dept: [phone] August 03, 2023 CHIEF COMPLAINT: Post Op of the Left Hand and 3 weeks 6 days post op Left thumb CMC arthroplasty (with tendon transfer and suspension, and 1st dorsal compartment release). HPI Patient here for post op Left thumb CMC arthroplasty. Continuing OT and home exercises. Continuing to wear splint. Had a shorter one made today. Denies any pain. X-rays done today. ASSESSMENT: M18.12 Primary osteoarthritis of first carpometacarpal joint of left hand (primary encounter diagnosis) SUMMARY/PLAN: She is 1 month out from surgery and doing well. Will get her into a hand-based splint. Continuing her therapy and we will see her in 1 month. Exam: Healed incision. Mild thickening of the scar. Very minimal sensitivity at the radial sensory nerve. Imaging: Views of the hand show a trapeziectomy without any concerns. Supporting Information Below: Medications: Current Outpatient Medications Medication Sig pantoprazole DR (PROTONIX) 40 mg tablet Take 1 tablet by mouth once daily. metoprolol tartrate, short acting, (LOPRESSOR) 25 mg tablet Take 1 tablet by mouth twice daily. desvenlafaxine ER (PRISTIQ) 100 mg 24 hr tablet Take 1 tablet by mouth once daily. hydrOXYchloroQUINE (PLAQUENIL) 200 mg tablet Take 1 tablet by mouth twice daily. BIOTIN, BULK, MISC once daily. calcium carbonate (CALCIUM 600 ORAL) Take by mouth once daily. mv-min/iron/folic/calcium/vitK (WOMEN'S MULTIVITAMIN ORAL) Take by mouth. No current facility-administered medications for this visit. Allergies: Amoxicillin, Doxycycline, Influenza A (H1n1) Vac 09 (Pf), Influenza Virus Vaccines, Penicillins, and Sulfa (Sulfonamide Antibiotics) Alphonso Marroquin MD [facility] 08-03-2023 Note HNO ID: [id number] Author: Faiza Sampson RT(R) Service: ? Author Type: Technologist Type: Progress Notes Filed: 08/03/2023 11:07 AM Note Text: Radiology Service Progress Note PATIENT NAME: Elvia Fragoso DATE OF SERVICE: August 03, 2023 TIME: 11:06 AM PATIENT IDENTITY VERIFICATION COMPLETED USING TWO (2) IDENTIFIERS: Name and Date of confirmed by patient verbally. FALL SCREENING: Has the patient had 2 falls in the last year or 1 fall with injury or currently using an Ambulatory Assistive Device (Walker, Cane, Wheelchair, Crutches, etc.)? No PATIENT GENDER DATA: Female. status: : No status: N/A PATIENT RELEVANT IMPLANT DATA REVIEWED: Not Applicable RADIOLOGY DEPARTMENT: General X-ray: Exam(s) Completed: Upper Extremity X-Ray(s): Hand, left PERIPHERAL IV DATA: Not applicable SIGNED BY: RT Beth(R) August 03, 2023 11:06 AM [facility] 08-03-2023 History of Present illness Narrative Alphonso Marroquin MD Department of Orthopaedics Orthopaedics [address] [place] [id number] Dept: [phone] August 03, 2023 CHIEF COMPLAINT: Post Op of the Left Hand and 3 weeks 6 days post op Left thumb CMC arthroplasty (with tendon transfer and suspension, and 1st dorsal compartment release). HPI Patient here for post op Left thumb CMC arthroplasty. Continuing OT and home exercises. Continuing to wear splint. Had a shorter one made today. Denies any pain. X-rays done today. ASSESSMENT: M18.12 Primary osteoarthritis of first carpometacarpal joint of left hand (primary encounter diagnosis) SUMMARY/PLAN: She is 1 month out from surgery and doing well. Will get her into a hand-based splint. Continuing her therapy and we will see her in 1 month. Exam: Healed incision. Mild thickening of the scar. Very minimal sensitivity at the radial sensory nerve. Imaging: Views of the hand show a trapeziectomy without any concerns. Supporting Information Below: Medications: Current Outpatient Medications Medication Sig pantoprazole DR (PROTONIX) 40 mg tablet Take 1 tablet by mouth once daily. metoprolol tartrate, short acting, (LOPRESSOR) 25 mg tablet Take 1 tablet by mouth twice daily. desvenlafaxine ER (PRISTIQ) 100 mg 24 hr tablet Take 1 tablet by mouth once daily. hydrOXYchloroQUINE (PLAQUENIL) 200 mg tablet Take 1 tablet by mouth twice daily. BIOTIN, BULK, MISC once daily. calcium carbonate (CALCIUM 600 ORAL) Take by mouth once daily. mv-min/iron/folic/calcium/vitK (WOMEN'S MULTIVITAMIN ORAL) Take by mouth. No current facility-administered medications for this visit. Allergies: Amoxicillin, Doxycycline, Influenza A (H1n1) Vac 09 (Pf), Influenza Virus Vaccines, Penicillins, and Sulfa (Sulfonamide Antibiotics) Alphonso Marroquin MD documented in this encounter [facility] 08-03-2023 Note HNO ID: [id number] Author: Colleen Webber OT/L Service: ? Author Type: Occupational Therapist Type: Progress Notes Filed: 08/03/2023 10:15 AM Note Text: Episode Visit Count: 3 Therapist That Will Accept/Oversee The Plan Of Care: Akbar Macias Start of Care Date: 07/20/23 Onset Date: 07/07/23 Plan of Care Certification Date: 07/20/23 Next Certification Due Date: 09/17/23 Patient Identified by Name and Date of : Yes REHABILITATION AND SPORTS THERAPY OCCUPATIONAL THERAPY TREATMENT NOTE ASSESSMENT: Elvia Fragoso tolerated the session with no issues. She demonstrated improvements in edema and psain. The patient will continue to benefit from ongoing skilled occupational therapy to progress toward set goals. PLAN FOR NEXT VISIT: fluido soft putty if able SUBJECTIVE: 4 weeks CMC arthroplasty complaining of stiffness Pain: Pain Pain Level: 0 OBJECTIVE MEASURES WITH LEVEL OF FUNCTION: UE AROM L Wrist Extension: 60 Degrees L Wrist Flexion: 55 Degrees Hand AROM L Thumb MP Flexion : 34 Degrees L Thumb IP Flexion : 45 Degrees L Thumb Radial Abduction: 55 Degrees L Thumb Palmar Abduction: 70 Degrees TREATMENT: Therapeutic Exercise: 1: Objective data taken and recorded 2: fabricated hand based splint instructed in wear schedule and precautions 3: AROM Left hand and wrist while in fluido at 105 x 10 minutes 4: soft sponge induction coordination engineer slat pickler and manipulate 5: 1 lb weight wrist flex ext dev and sup pro Skilled Intervention: Patient was educated in proper exercise technique and purpose for exercises. Skilled judgment was used in selection of appropriate interventions. Custom orthosis: L 3913 HFO w/out joints (short opponens, all CMC designs, C-bar, hand kumari, hand gutter, hand trigger, anti-claw) Custom orthosis to provide Pt practiced orthosis application, donning on/off while under OT's supervision. and to promote healing. Patient was instructed in care of orthosis and wearing schedule time clerk except when exercising / bathing. . Skilled Intervention: Clinical knowledge and skills required for custom orthotic fabrication and wearing schedule Billing Therapeutic Exercise Treatment Minutes: 40 * L 3913 HFO w/out joints (short opponens, all CMC designs, C-bar, hand kumari, hand gutter, hand trigger, anti-claw) Quantity: 1 Total Session Time (minutes): 40 Session Start Time : 930 Session Stop Time : 1010 Colleen Webber OT/[facility] 08-03-2023 History of Present illness Narrative Episode Visit Count: 3 Therapist That Will Accept/Oversee The Plan Of Care: Akbar Macias Start of Care Date: 07/20/23 Onset Date: 07/07/23 Plan of Care Certification Date: 07/20/23 Next Certification Due Date: 09/17/23 Patient Identified by Name and Date of : Yes REHABILITATION AND SPORTS THERAPY OCCUPATIONAL THERAPY TREATMENT NOTE ASSESSMENT: Elvia Fragoso tolerated the session with no issues. She demonstrated improvements in edema and psain. The patient will continue to benefit from ongoing skilled occupational therapy to progress toward set goals. PLAN FOR NEXT VISIT: fluido soft putty if able SUBJECTIVE: 4 weeks CMC arthroplasty complaining of stiffness Pain: Pain Pain Level: 0 OBJECTIVE MEASURES WITH LEVEL OF FUNCTION: UE AROM L Wrist Extension: 60 Degrees L Wrist Flexion: 55 Degrees Hand AROM L Thumb MP Flexion : 34 Degrees L Thumb IP Flexion : 45 Degrees L Thumb Radial Abduction: 55 Degrees L Thumb Palmar Abduction: 70 Degrees TREATMENT: Therapeutic Exercise: 1: Objective data taken and recorded 2: fabricated hand based splint instructed in wear schedule and precautions 3: AROM Left hand and wrist while in fluido at 105 x 10 minutes 4: soft sponge induction coordination engineer slat pickler and manipulate 5: 1 lb weight wrist flex ext dev and sup pro Skilled Intervention: Patient was educated in proper exercise technique and purpose for exercises. Skilled judgment was used in selection of appropriate interventions. Custom orthosis: L 3913 HFO w/out joints (short opponens, all CMC designs, C-bar, hand kumari, hand gutter, hand trigger, anti-claw) Custom orthosis to provide Pt practiced orthosis application, donning on/off while under OT's supervision. and to promote healing. Patient was instructed in care of orthosis and wearing schedule time clerk except when exercising / bathing. . Skilled Intervention: Clinical knowledge and skills required for custom orthotic fabrication and wearing schedule Billing Therapeutic Exercise Treatment Minutes: 40 * L 3913 HFO w/out joints (short opponens, all CMC designs, C-bar, hand kumari, hand gutter, hand trigger, anti-claw) Quantity: 1 Total Session Time (minutes): 40 Session Start Time : 930 Session Stop Time : 1010 JESIKA Velasco documented in this encounter [facility] 07-28-2023 Note HNO ID: [id number] Author: Koludrovich, Mirna, OT/L Service: ? Author Type: Occupational Therapist Type: Progress Notes Filed: 07/28/2023 4:20 PM Note Text: Episode Visit Count: 2 Therapist That Will Accept/Oversee The Plan Of Care: Akbar Macias Start of Care Date: 07/20/23 Onset Date: 07/07/23 Plan of Care Certification Date: 07/20/23 Next Certification Due Date: 09/17/23 Patient Identified by Name and Date of : Yes REHABILITATION AND SPORTS THERAPY OCCUPATIONAL THERAPY TREATMENT NOTE ASSESSMENT: Elvia Fragoso tolerated the session with no issues. She demonstrated improvements in wound healing, ACTIVE RANGE OF MOTION of wrist and reported compliance. The patient will continue to benefit from ongoing skilled occupational therapy to progress toward set goals. PLAN FOR NEXT VISIT: fluido/stretch; move into hand based splint if doing well; check use of silicone at home SUBJECTIVE: s/p 3 wks L CMC Arthroplasty; Home Program: wearing splint most of the time except to bathe and exercise; does her motion 3 x day wrist and thumb; also doing scar massage; Pain: Pain Pain Level: 0 (at the worst 2/10) Pain Location: Thumb - Left Description: Aching Frequency: Intermittent OBJECTIVE MEASURES WITH LEVEL OF FUNCTION: Hand Skin / Wound: Skin Description Skin Description comments: scar healing well; fading UE AROM L Wrist Extension: 65 Degrees L Wrist Flexion: 45 Degrees Hand AROM L Thumb Opposition (Functional): to tip of little finger TREATMENT: Therapeutic Exercise: 1: Objective data taken and recorded 2: Thumb Motion: continue with touches but now add slides down little finger 3: Wrist motion: continue to work on wrist motion Skilled Intervention: Skilled judgment was used in selection of appropriate interventions. Provided written instruction for home exercise program to facilitate proper performance and compliance. Correct performance of therapeutic exercises was facilitated with verbal and visual cuing. Self-Prison Management: 1: Incision care:ok to soak at this point 2: Scar: continue with massage; Skilled Intervention: Activity progression based on professional judgement. Home Program Assigned: 1: Thumb Motion: continue with touches but now add slides down little finger 2: Wrist motion: continue to work on wrist motion 3: Incision care:ok to soak at this point 4: Scar: continue with massage; add silicone at night after freshly washing and drying skin 5: Splint: continue with protection day and night; ok to remove to air out skin in safe environment Billing Therapeutic Exercise Treatment Minutes: 23 Self-Care/Home Management Treatment Minutes: 1 Skilled Treatment Time Minutes (timed and untimed codes): 24 Total Session Time (minutes): 24 Session Start Time : 1555 Session Stop Time : 1619 Mirna Lindsey OT/Carmelo, CHT [facility] 07-28-2023 History of Present illness Narrative Episode Visit Count: 2 Therapist That Will Accept/Oversee The Plan Of Care: Webber Colleen Start of Care Date: 07/20/23 Onset Date: 07/07/23 Plan of Care Certification Date: 07/20/23 Next Certification Due Date: 09/17/23 Patient Identified by Name and Date of : Yes REHABILITATION AND SPORTS THERAPY OCCUPATIONAL THERAPY TREATMENT NOTE ASSESSMENT: Elvia Fragoso tolerated the session with no issues. She demonstrated improvements in wound healing, ACTIVE RANGE OF MOTION of wrist and reported compliance. The patient will continue to benefit from ongoing skilled occupational therapy to progress toward set goals. PLAN FOR NEXT VISIT: fluido/stretch; move into hand based splint if doing well; check use of silicone at home SUBJECTIVE: s/p 3 wks L CMC Arthroplasty; Home Program: wearing splint most of the time except to bathe and exercise; does her motion 3 x day wrist and thumb; also doing scar massage; Pain: Pain Pain Level: 0 (at the worst 2/10) Pain Location: Thumb - Left Description: Aching Frequency: Intermittent OBJECTIVE MEASURES WITH LEVEL OF FUNCTION: Hand Skin / Wound: Skin Description Skin Description comments: scar healing well; fading UE AROM L Wrist Extension: 65 Degrees L Wrist Flexion: 45 Degrees Hand AROM L Thumb Opposition (Functional): to tip of little finger TREATMENT: Therapeutic Exercise: 1: Objective data taken and recorded 2: Thumb Motion: continue with touches but now add slides down little finger 3: Wrist motion: continue to work on wrist motion Skilled Intervention: Skilled judgment was used in selection of appropriate interventions. Provided written instruction for home exercise program to facilitate proper performance and compliance. Correct performance of therapeutic exercises was facilitated with verbal and visual cuing. Self-Prison Management: 1: Incision care:ok to soak at this point 2: Scar: continue with massage; Skilled Intervention: Activity progression based on professional judgement. Home Program Assigned: 1: Thumb Motion: continue with touches but now add slides down little finger 2: Wrist motion: continue to work on wrist motion 3: Incision care:ok to soak at this point 4: Scar: continue with massage; add silicone at night after freshly washing and drying skin 5: Splint: continue with protection day and night; ok to remove to air out skin in safe environment Billing Therapeutic Exercise Treatment Minutes: 23 Self-Care/Home Management Treatment Minutes: 1 Skilled Treatment Time Minutes (timed and untimed codes): 24 Total Session Time (minutes): 24 Session Start Time : 1555 Session Stop Time : 1619 Mirna CANCHOLA, CHT documented in this encounter [facility] 07-20-2023 Note HNO ID: [id number] Author: Colleen Webber OT/L Service: ? Author Type: Occupational Therapist Type: Progress Notes Filed: 09/01/2023 3:00 PM Note Text: Episode Visit Count: 1 Therapist That Will Accept/Oversee The Plan Of Care: Akbar Macias Start of Care Date: 07/20/23 Onset Date: 07/07/23 Plan of Care Certification Date: 07/20/23 Next Certification Due Date: 09/17/23 Patient Identified by Name and Date of : Yes [facility] REHABILITATION AND SPORTS THERAPY OCCUPATIONAL THERAPY EVALUATION PLAN OF CARE: Assessment: Elvia Fragoso presents with diagnosis of CMC Arthroplasty that interferes with lifting, gripping, pinching, weight bearing, pulling, pushing, carrying . She presents with impairments in range of motion and soft tissue healing. Patient did not complete the PROMIS? (Patient Reported Outcome Measures Information System). Prognosis for therapy is Good due to: current objective clinical presentation . good She will benefit from skilled therapy services to meet the goals established for this plan of care as noted below. Goals for Episode of Care created on 07/20/23 through 09/17/23 Patient will report a good understanding of diagnosis and OT recommendations for progression of program. Patient will demonstrate independence with ongoing home recommendations/exercise program throughout therapy plan of care. Patient will increase AROM of Left wrist and hand to WFL in order to be able to improve function for prior functional tasks. Patient will independently demonstrate correct application of CUSTOM orthosis and verbalize understanding of proper wear/care. Patient will report a good understanding of edema control, scar / wound management throughout therapy plan of care to promote non-adherent / non-tender soft tissue. Patient will independently demonstrate good joint protection/body mechanics/postural control techniques during prior functional tasks. Patient Goals: to resume full function Planned Interventions, Frequency, and Duration: Current Frequency: 1x/week Duration: 6 weeks Total Number of Visits Planned: 6 Planned Treatment Interventions: Custom orthosis fabrication, Therapeutic exercise ([id number]), Self-intermediate management ([id number]) PLAN FOR NEXT VISIT: check and adjust splint full thumb AROM, fluido, scar management progression Patient demonstrates good understanding of plan of care and treatment. The above goals and plan of care were discussed and agreed upon by patient/family. 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) Recreation / Current Exercise: walking hiking Hobbies / Interests: bike riding household [employer] paddleboarding Home Environment Patient Lives With: Spouse, Family Pain: Pain Pain Level: 1 Pain Location: Wrist - Left, Thumb - Left Description: Aching Frequency: Intermittent Post Treatment Pain Post Treatment Pain Level: No Change Post Treatment Pain Location: Wrist - Left, Thumb - Left Post Treatment Pain Description: Aching PROMIS Scales Higher is Better 07/19/2023 07/14/2023 06/18/2023 Phys Func - Score - 49 (within normal limits) 47 (within normal limits) Phys Func - Percentile - 46 % 38 % Self-Eff Symptom - Score 52 (Average) - - Self-Eff Symptom - Percentile 58 % - - T-scores: mean of general population = 50. 5 points is clinically meaningfully difference Percentiles provide an indication of how the patient's score ranks in relation to the general population. Higher percentile rankings indicate better function/quality of life. 50th percentile is the average of the general population and indicates half of respondents had a worse score. OBJECTIVE MEASURES WITH LEVEL OF FUNCTION: Hand Skin / Wound: Sutures Sutures: absorbable Edema Location: left hand Edema Description: Moderate Edema Measurements: Wrist (DWC) (cm) R Wrist (DWC) (cm): 17.4 L Wrist (DWC) (cm): 18 Wrist AROM: Left Limitation Left Hand AROM: WFL Thumb AROM: Left Limitation Sensation: Reports tingling or numbness UE AROM L Wrist Extension: 55 Degrees L Wrist Flexion: 25 Degrees L Wrist Radial Deviation: 15 Degrees L Wrist Ulnar Deviation: 25 Degrees Left Hand AROM: WFL Thumb AROM: Left Limitation Hand AROM L Thumb MP Flexion : 40 Degrees L Thumb IP Flexion : 50 Degrees L Thumb Radial Abduction: 45 De (more content not included)... [facility] 07-20-2023 Note HNO ID: [id number] Author: Malathi Arce PA-C Service: ? Author Type: Physician Professional Athletes Coach Type: Progress Notes Filed: 07/20/2023 2:32 PM Note Text: Malathi Arce PA-C Department of Orthopaedics Orthopaedics [address] [place] [id number] Dept: [phone] July 20, 2023 CHIEF COMPLAINT: Pain and Post Op of the Left Hand (Left thumb CMC arthroplasty). ASSESSMENT: M18.12 Primary osteoarthritis of first carpometacarpal joint of left hand (primary encounter diagnosis) SUMMARY/PLAN: Patient presents 13 days status post left CMC arthroplasty. She is doing much better, is having some issues controlling pain after the nerve block wore off. Is doing better, no longer taking any pain medication. Pain today is a 3 out of 10 intermittent soreness. We will get her into OT for an Orthoplast splint and start a motion program. We discussed proper hand washing, no soaking of the operative hand. No heavy lifting, pushing or pulling with the operative hand, encourage gentle motion. We discussed scar massage. Follow up as planned. Exam: Left thumb incision site is well approximated without erythema or drainage, there is mild but appropriate edema at the base of the thumb and some resolving ecchymosis along the radial aspect of the wrist extending up into the IP joint. Range of motion of the thumb was not tested. No radial sensory hypersensitivity noted. Imaging: Deferred today Ms. Elvia Fragoso was advised as to contrast therapies and/or to take analgesics/anti-inflammatories as needed and all contraindications were reviewed. Supporting Information Below: Medications: Current Outpatient Medications Medication Sig pantoprazole DR (PROTONIX) 40 mg tablet Take 1 tablet by mouth once daily. metoprolol tartrate, short acting, (LOPRESSOR) 25 mg tablet Take 1 tablet by mouth twice daily. desvenlafaxine ER (PRISTIQ) 100 mg 24 hr tablet Take 1 tablet by mouth once daily. hydrOXYchloroQUINE (PLAQUENIL) 200 mg tablet Take 1 tablet by mouth twice daily. BIOTIN, BULK, MISC once daily. calcium carbonate (CALCIUM 600 ORAL) Take by mouth once daily. mv-min/iron/folic/calcium/vitK (WOMEN'S MULTIVITAMIN ORAL) Take by mouth. No current facility-administered medications for this visit. Allergies: Amoxicillin, Doxycycline, Influenza A (H1n1) Vac 09 (Pf), Influenza Virus Vaccines, Penicillins, and Sulfa (Sulfonamide Antibiotics) This note was partially generated using [employer] voice recognition system, and there may be some incorrect words, spellings, and punctuation that were not noted in checking the note before saving. Malathi Arce PA-C [facility] 07-20-2023 History of Present illness Narrative Episode Visit Count: 1 Therapist That Will Accept/Oversee The Plan Of Care: Akbar Macias Start of Care Date: 07/20/23 Onset Date: 07/07/23 Plan of Care Certification Date: 07/20/23 Next Certification Due Date: 09/17/23 Patient Identified by Name and Date of : Yes [facility] REHABILITATION AND SPORTS THERAPY OCCUPATIONAL THERAPY EVALUATION PLAN OF CARE: Assessment: Elvia Fragoso presents with diagnosis of CMC Arthroplasty that interferes with lifting, gripping, pinching, weight bearing, pulling, pushing, carrying . She presents with impairments in range of motion and soft tissue healing. Patient did not complete the PROMIS (Patient Reported Outcome Measures Information System). Prognosis for therapy is Good due to: current objective clinical presentation . good She will benefit from skilled therapy services to meet the goals established for this plan of care as noted below. Goals for Episode of Care created on 07/20/23 through 09/17/23 Patient will report a good understanding of diagnosis and OT recommendations for progression of program. Patient will demonstrate independence with ongoing home recommendations/exercise program throughout therapy plan of care. Patient will increase AROM of Left wrist and hand to WFL in order to be able to improve function for prior functional tasks. Patient will independently demonstrate correct application of CUSTOM orthosis and verbalize understanding of proper wear/care. Patient will report a good understanding of edema control, scar / wound management throughout therapy plan of care to promote non-adherent / non-tender soft tissue. Patient will independently demonstrate good joint protection/body mechanics/postural control techniques during prior functional tasks. Patient Goals: to resume full function Planned Interventions, Frequency, and Duration: Current Frequency: 1x/week Duration: 6 weeks Total Number of Visits Planned: 6 Planned Treatment Interventions: Custom orthosis fabrication, Therapeutic exercise ([id number]), Self-intermediate management ([id number]) PLAN FOR NEXT VISIT: check and adjust splint full thumb AROM, fluido, scar management progression Patient demonstrates good understanding of plan of care and treatment. The above goals and plan of care were discussed and agreed upon by patient/family. 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) Recreation / Current Exercise: walking hiking Hobbies / Interests: bike riding household [employer] Home Environment Patient Lives With: Spouse, Family Pain: Pain Pain Level: 1 Pain Location: Wrist - Left, Thumb - Left Description: Aching Frequency: Intermittent Post Treatment Pain Post Treatment Pain Level: No Change Post Treatment Pain Location: Wrist - Left, Thumb - Left Post Treatment Pain Description: Aching PROMIS Scales Higher is Better 07/19/2023 07/14/2023 06/18/2023 Phys Func - Score - 49 (within normal limits) 47 (within normal limits) Phys Func - Percentile - 46 % 38 % Self-Eff Symptom - Score 52 (Average) - - Self-Eff Symptom - Percentile 58 % - - T-scores: mean of general population = 50. 5 points is clinically meaningfully difference Percentiles provide an indication of how the patient's score ranks in relation to the general population. Higher percentile rankings indicate better function/quality of life. 50th percentile is the average of the general population and indicates half of respondents had a worse score. OBJECTIVE MEASURES WITH LEVEL OF FUNCTION: Hand Skin / Wound: Sutures Sutures: absorbable Edema Location: left hand Edema Description: Moderate Edema Measurements: Wrist (DWC) (cm) R Wrist (DWC) (cm): 17.4 L Wrist (DWC) (cm): 18 Wrist AROM: Left Limitation Left Hand AROM: WFL Thumb AROM: Left Limitation Sensation: Reports tingling or numbness UE AROM L Wrist Extension: 55 Degrees L Wrist Flexion: 25 Degrees L Wrist Radial Deviation: 15 Degrees L Wrist Ulnar Deviation: 25 Degrees Left Hand AROM: WFL Thumb AROM: Left Limitation Hand AROM L Thumb MP Flexion : 40 Degrees L Thumb IP Flexion : 50 Degrees L Thumb Radial Abduction: 45 Degrees L Thumb Palmar Abduction: 60 Degrees Education: Education Learning Preferences: Demonstration, Explanation, Performance, Printed Materials Barriers: None Learning/educational needs: Home exercise program, Plan of Care, Brace Fit TREATMENT: OT Treatment Interventions : Therapeutic Exercise, Self-Prison Management, Custom Orthosis/Splint Fabrication Evaluation Evaluation Therapeutic Exercise: 1: fabricated forearm based thumb spica splint, instructed in wear schedule and precautions 2: wrist flex, ext dev and sup pro 3: thumb opposition to D3 circumduction 4: scar massage instruction with precautions Skilled Intervention: Patient was educated in proper exercise technique and purpose for exercises. Skilled judgment was used in selection of appropriate interventions. Self-Prison Management: 1: educated in diagnosis and healling 2: instructed in post op precautions 3: instructed in use of ice and heat with precautions Skilled Intervention: Skilled judgment in the selection of proper modification for activity of daily living/home management based on clinical presentation, deficits, and needs. Custom orthosis: L 3808 WHFO w/out joints (long opponens, thumb spica, intrinsic gutter, resting, anti-spasticity, EXOS, dorsal block) Custom orthosis to provide Pt practiced orthosis application, donning on/off while under OT's supervision. and to promote healing. Patient was instructed in care of orthosis and wearing schedule time clerk except when exercising / bathing. . Skilled Intervention: Clinical knowledge and skills required for custom orthotic fabrication and wearing schedule Billing * Evaluation Moderate Complexity: 1 Unit Therapeutic Exercise Treatment Minutes: 15 Self-Care/Home Management Treatment Minutes: 10 * L 3808 WHFO w/out joints (long opponens, thumb spica, intrinsic gutter, resting, anti-spasticity, EXOS, dorsal block) Quantity: 1 Total Session Time (minutes): 41 Session Start Time : 1450 Session Stop Time : 1531 Colleen Webber OT/L documented in this encounter [facility] 07-20-2023 History of Present illness Narrative Malathi Arce PA-C Department of Orthopaedics Orthopaedics [address] [address] Dept: [phone] July 20, 2023 CHIEF COMPLAINT: Pain and Post Op of the Left Hand (Left thumb CMC arthroplasty). ASSESSMENT: M18.12 Primary osteoarthritis of first carpometacarpal joint of left hand (primary encounter diagnosis) SUMMARY/PLAN: Patient presents 13 days status post left CMC arthroplasty. She is doing much better, is having some issues controlling pain after the nerve block wore off. Is doing better, no longer taking any pain medication. Pain today is a 3 out of 10 intermittent soreness. We will get her into OT for an Orthoplast splint and start a motion program. We discussed proper hand washing, no soaking of the operative hand. No heavy lifting, pushing or pulling with the operative hand, encourage gentle motion. We discussed scar massage. Follow up as planned. Exam: Left thumb incision site is well approximated without erythema or drainage, there is mild but appropriate edema at the base of the thumb and some resolving ecchymosis along the radial aspect of the wrist extending up into the IP joint. Range of motion of the thumb was not tested. No radial sensory hypersensitivity noted. Imaging: Deferred today Ms. Elvia Fragoso was advised as to contrast therapies and/or to take analgesics/anti-inflammatories as needed and all contraindications were reviewed. Supporting Information Below: Medications: Current Outpatient Medications Medication Sig pantoprazole DR (PROTONIX) 40 mg tablet Take 1 tablet by mouth once daily. metoprolol tartrate, short acting, (LOPRESSOR) 25 mg tablet Take 1 tablet by mouth twice daily. desvenlafaxine ER (PRISTIQ) 100 mg 24 hr tablet Take 1 tablet by mouth once daily. hydrOXYchloroQUINE (PLAQUENIL) 200 mg tablet Take 1 tablet by mouth twice daily. BIOTIN, BULK, MISC once daily. calcium carbonate (CALCIUM 600 ORAL) Take by mouth once daily. mv-min/iron/folic/calcium/vitK (WOMEN'S MULTIVITAMIN ORAL) Take by mouth. No current facility-administered medications for this visit. Allergies: Amoxicillin, Doxycycline, Influenza A (H1n1) Vac 09 (Pf), Influenza Virus Vaccines, Penicillins, and Sulfa (Sulfonamide Antibiotics) This note was partially generated using [employer] voice recognition system, and there may be some incorrect words, spellings, and punctuation that were not noted in checking the note before saving. Malathi Arce PA-C documented in this encounter [facility] 07-07-2023 Note HNO ID: [id number] Author: Brett Christianson MD Service: ? Author Type: Anesthesiologist Type: Anesthesia Procedure Notes Filed: 07/07/2023 8:28 AM Note Text: ANESTHESIOLOGY PROCEDURE NOTE Peripheral Nerve Block General Information Procedure Start Time/Medication Administration: 07/07/2023 8:15 AM Procedure End time: 07/07/2023 8:21 AM Patient location during procedure: pre-op Timeout Performed Pre-procedure: timeout performed Consent Obtained: Yes Patient identity confirmed: arm band Reason for block: post-op pain management/at surgeon's request Staffing Anesthesiologist: Brett Christianson MD Performed by: anesthesiologist Preparation Sterility Preparation: hand hygiene performed prior to procedure, sterile gloves, drapes, and procedure tray, surgical cap used, mask used, sterile drape used during line insertion, skin prep agent completely dried prior to procedure Site Prep: Chloraprep Pre-Procedure Neuro Exam Location: LUE Sensory: intact Motor: intact Procedure Details Patient Position: supine Monitoring: Pulse OX, EKG and NIBP Block Type Upper Extremity: brachial plexus Approach: axillary Laterality: left Injection Technique: single-shot Ultrasound Guided: Yes Image in Chart: yes Local Infiltration: Yes Needle Needle Type: echogenic Needle Gauge: 20 G Needle Length: 50 mm Assessment Injection assessment: negative aspiration, no paresthesia on injection, incremental injection and local visualized surrounding nerve on ultrasound Paresthesia: immediately resolved Post-Procedure Neuro Exam Expected Regional Anesthesia: Yes Medications Administered ropivacaine (PF) 5 mg/mL (0.5 %) injection (NAROPIN) - peripheral nerve block 15 mL - 07/07/2023 8:15:00 AM SIGNATURE: Brett Christianson MD PATIENT NAME: Elvia Fragoso DATE: July 07, 2023 TIME: 8:27 AM CSN: [id number] [facility] 07-01-2023 Miscellaneous Notes Images from the original note were not included. Response copied below Dr. Marroquin please advise Hawa Tenorio RN July 01, 2023 3:14 PM View All Conversations on this Encounter Nelia Garcia APRN.[facility] Pacc Wa Rn Resource Pool; Alphonso Marroquin MD 1 hour ago (2:13 PM) Being an elective I would postpone until cardiac evaluation complete Nelia Patient is scheduled for ARTHROPLASTY CARPOMETACARPAL JOINTS - Left with Alphonso Marroquin MD on 07/07/2023 Patient's PACC appointment was on 06/21/2023 Records you requested are scanned in epic Please review scanned cardiology visit dated 06/28/[address] Bird. Jevon Patient has history of SVT,with underlying Right BBB - Dr.Cyril Escoto suggesting ECHO to assess ventricular function and Potential ablation Please advise if patient can proceed with planned surgery Please reply all Hawa Tenorio RN July 01, 2023 10:15 AM documented in this encounter [facility] 06-22-2023 Note HNO ID: [id number] Author: Genna Romero MD Service: ? 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 (Had SVT) Eye exam 06/27-due Component Latest Ref Rng AND Units 01/18/2023 WSR 0 - 20 mm/hr 2 BETHANY Scr Qual Negative Negative CK 42 - 196 U/L 72 Previous notes: Issues with fatigue and pain for years. Feels like it was all brushed off Then her wbc count was noted to be decreased-she has had this in the past. She was referred to hematology who in turn referred here here for + BETHANY and saw Bren. Was given steroids and then plaquenil 06.28 She was doing better She has had less fatigue and joint pain but still has fatigue and pain FH- Dad had RA/Raynaud's Celiac in a cousin Bren notes: 06/27 46 year old female with PMH of GERD is here for numerous symptoms including joint pain and Positive BETHANY. (M25.50) Polyarthralgia (primary encounter diagnosis) (R76.8) Elevated antinuclear antibody (BETHANY) level (I73.00) Raynaud's disease without gangrene (D72.810) Lymphopenia (K13.79) Mouth sores (L65.9) Hair loss (H04.123) Dry eyes Polyarthralgia - + BETHANY, leucopenia, steroid-responsive joint pain, AM stiffness, hair loss, dry eyes, reported mouth sores (none today) all suspicious for SLE. Will check additional lab, to be sure no RA or other CTD overlap. -Consider starting hydroxychloroquine once all results are back. 10/29 SLE (dx 06/2023 based on + BETHANY 1:160, Neg ALYSE/DsDNA, + leucopenia, steroid-responsive joint pain, AM stiffness, hair loss, dry eyes, reported mouth sores) - Started hydroxychloroquine 06/2023 with great improvement in fatigue, energy, rashes, joint pain, stiffness, and hair loss Component Latest Ref Rng AND Units 06/08/2022 06/17/2022 10/21/2022 BETHANY Negative Positive (A) BETHANY Titer 1:160 BETHANY Pattern Polar/Golgi-like CCP Antibody IgG Qualitative Negative Negative CCP Antibody, IgG <20 Units <15 Sm Antibody Negative Negative Anti-Sm <1.0 AI <0.2 FORGE PRESS OPERATOR Antibody QUAL Negative Negative Anti-FORGE PRESS OPERATOR <1.0 AI 0.2 SSA Antibody Qual Negative Negative Anti-SSA <1.0 AI <0.2 Anti-SSB <1.0 AI <0.2 SSB Antibody Qual Negative Negative CENTROMERE AB QUAL Negative Negative Centromere Ab <1.0 AI <0.2 Scleroderma Ab Qual Negative Negative Scl-70 Abs, EIA <1.0 AI <0.2 MIRNA 1 ANTIBODY QUAL Negative Negative Mirna 1 Antibody <1.0 AI <0.2 Ribosomal FORGE PRESS OPERATOR Qualitative Negative Negative Ribosomal FORGE PRESS OPERATOR Ab <1.0 AI <0.2 Chromatin Ab Qual Negative Negative Chromatin Ab <1.0 AI <0.2 Rheumatoid Factor <16 IU/mL <10 DNA Antibody w/Confirmation <30 IU/mL <12 <12 WSR 0 - 20 mm/hr 8 8 CRP <0.9 mg/dL <0.3 C3 86 - 166 mg/dL 134 C4 13 - 46 mg/dL 23 WBC Date Value Ref Range Status 01/18/2023 3.80 3.70 - 11.00 k/uL Final 10/21/2022 3.47 (L) 3.70 - 11.00 k/uL Final 05/18/2022 3.19 (L) 3.70 - 11.00 k/uL Final 04/07/2022 3.55 (L) 3.70 - 11.00 k/uL Final 04/07/2022 3.57 (L) 3.70 - 11.00 k/uL Final 03/06/2022 3.21 (L) 3.70 - 11.00 k/uL Final 02/27/2022 2.92 (L) 3.70 - 11.00 k/uL Final 02/06/2021 4.45 3.70 - 11.00 k/uL Final 01/23/2021 3.43 (L) 3.70 - 11.00 k/uL Final 07/25/2019 5.62 3.70 - 11.00 k/uL Final Elvia is both RF - 9 (06/17/2022) and CCP - 13.5 (06/17/2022) negative. Her most recent BETHANY was positive (01/18/2023). Current Outpatient Medications Medication Sig pantoprazole DR (PROTONIX) 40 mg tablet Take 1 tablet by mouth once daily. metoprolol tartrate, short acting, (LOPRESSOR) 25 mg tablet Take 1 tablet by mouth twice daily. desvenlafaxine ER (PRISTIQ) 100 mg 24 hr tablet Take 1 tablet by mouth once daily. hydrOXYchloroQUINE (PLAQUENIL) 200 mg tablet Take 1 tablet by mouth twice daily. BIOTIN, BULK, MISC once daily. calcium carbonate (CALCIUM 600 ORAL) Take by mouth once daily. mv-min/iron/folic/calcium/vitK (WOMEN'S MULTIVITAMIN ORAL) Take by mouth. No current facility-administered medications for this visit. Last Ophthalmology Check for Plaquenil (Hydroxychloroquine) Last OCT Macula Exam No resulted procedures found. Last Visual Field Exam No resulted procedures found. ALLERGIES Allergen Reactions Doxycycline Hives Influenza A (H1n1) * Hives rash Influenza Virus Vac* Hives Penicillins Hives Sulfa (Sulfonamide * Hives, Shortness of Breath Answers submitted by the patient for this visit: Review of Systems Rheumatology (Submitted on 06/18/2023) Fever (more content not included)... [facility] 06-22-2023 Note HNO ID: [id number] Author: Aurora Garcia Service: ? Author Type: ? Type: Progress Notes Filed: 06/22/2023 12:05 PM Note Text: Answers submitted by the patient for this visit: Review of Systems Rheumatology (Submitted on 06/18/2023) Fever : No Recent unintentional weight change: No Eye pain: No Eye redness: No Vision Disturbance: No Eye Dryness: Yes Nosebleeds: No Sores in your mouth: No Trouble Swallowing: No Dry Mouth: No Chest pain: No Leg Swelling: No A cough: No Shortness of breath: No Pain with breathing: No Heartburn: Yes Abdominal pain: Yes Diarrhea: Yes Black tarry stools: No Blood in urine: No Pain or burning with urination: No Joint pain or stiffness: Yes Muscle weakness: Yes Muscle aches: Yes Joint swelling: Yes Morning Stiffness in Joints: Yes A rash: No Skin Color Changes: Yes Hair Loss: Yes Nail Changes: No Headaches: Yes Numbness: No Memory Loss: No Swollen Glands: No [facility] 06-22-2023 History of Present illness Narrative F/u SLE- Joint pain Raynauds, photosensitivity oral sores, sicca syndrome Alopecia-thinning Low wbc + BETHANY low titer neg panel 47 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 (Had SVT) Eye exam 06/27-due Component Latest Ref Rng & Units 01/18/2023 WSR 0 - 20 mm/hr 2 BETHANY Scr Qual Negative Negative CK 42 - 196 U/L 72 Previous notes: Issues with fatigue and pain for years. Feels like it was all brushed off Then her wbc count was noted to be decreased-she has had this in the past. She was referred to hematology who in turn referred here here for + BETHANY and saw Bren. Was given steroids and then plaquenil 06.28 She was doing better She has had less fatigue and joint pain but still has fatigue and pain FH- Dad had RA/Raynaud's Celiac in a cousin Bren notes: 06/27 46 year old female with PMH of GERD is here for numerous symptoms including joint pain and Positive BETHANY. (M25.50) Polyarthralgia (primary encounter diagnosis) (R76.8) Elevated antinuclear antibody (BETHANY) level (I73.00) Raynaud's disease without gangrene (D72.810) Lymphopenia (K13.79) Mouth sores (L65.9) Hair loss (H04.123) Dry eyes Polyarthralgia - + BETHANY, leucopenia, steroid-responsive joint pain, AM stiffness, hair loss, dry eyes, reported mouth sores (none today) all suspicious for SLE. Will check additional lab, to be sure no RA or other CTD overlap. -Consider starting hydroxychloroquine once all results are back. 10/29 SLE (dx 06/2023 based on + BETHANY 1:160, Neg ALYSE/DsDNA, + leucopenia, steroid-responsive joint pain, AM stiffness, hair loss, dry eyes, reported mouth sores) - Started hydroxychloroquine 06/2023 with great improvement in fatigue, energy, rashes, joint pain, stiffness, and hair loss Component Latest Ref Rng & Units 06/08/2022 06/17/2022 10/21/2022 BETHANY Negative Positive (A) BETHANY Titer 1:160 BETHANY Pattern Polar/Golgi-like CCP Antibody IgG Qualitative Negative Negative CCP Antibody, IgG <20 Units <15 Sm Antibody Negative Negative Anti-Sm <1.0 AI <0.2 FORGE PRESS OPERATOR Antibody QUAL Negative Negative Anti-FORGE PRESS OPERATOR <1.0 AI 0.2 SSA Antibody Qual Negative Negative Anti-SSA <1.0 AI <0.2 Anti-SSB <1.0 AI <0.2 SSB Antibody Qual Negative Negative CENTROMERE AB QUAL Negative Negative Centromere Ab <1.0 AI <0.2 Scleroderma Ab Qual Negative Negative Scl-70 Abs, EIA <1.0 AI <0.2 MIRNA 1 ANTIBODY QUAL Negative Negative Mirna 1 Antibody <1.0 AI <0.2 Ribosomal FORGE PRESS OPERATOR Qualitative Negative Negative Ribosomal FORGE PRESS OPERATOR Ab <1.0 AI <0.2 Chromatin Ab Qual Negative Negative Chromatin Ab <1.0 AI <0.2 Rheumatoid Factor <16 IU/mL <10 DNA Antibody w/Confirmation <30 IU/mL <12 <12 WSR 0 - 20 mm/hr 8 8 CRP <0.9 mg/dL <0.3 C3 86 - 166 mg/dL 134 C4 13 - 46 mg/dL 23 WBC Date Value Ref Range Status 01/18/2023 3.80 3.70 - 11.00 k/uL Final 10/21/2022 3.47 (L) 3.70 - 11.00 k/uL Final 05/18/2022 3.19 (L) 3.70 - 11.00 k/uL Final 04/07/2022 3.55 (L) 3.70 - 11.00 k/uL Final 04/07/2022 3.57 (L) 3.70 - 11.00 k/uL Final 03/06/2022 3.21 (L) 3.70 - 11.00 k/uL Final 02/27/2022 2.92 (L) 3.70 - 11.00 k/uL Final 02/06/2021 4.45 3.70 - 11.00 k/uL Final 01/23/2021 3.43 (L) 3.70 - 11.00 k/uL Final 07/25/2019 5.62 3.70 - 11.00 k/uL Final Elvia is both RF - 9 (06/17/2022) and CCP - 13.5 (06/17/2022) negative. Her most recent BETHANY was positive (01/18/2023). Current Outpatient Medications Medication Sig pantoprazole DR (PROTONIX) 40 mg tablet Take 1 tablet by mouth once daily. metoprolol tartrate, short acting, (LOPRESSOR) 25 mg tablet Take 1 tablet by mouth twice daily. desvenlafaxine ER (PRISTIQ) 100 mg 24 hr tablet Take 1 tablet by mouth once daily. hydrOXYchloroQUINE (PLAQUENIL) 200 mg tablet Take 1 tablet by mouth twice daily. BIOTIN, BULK, MISC once daily. calcium carbonate (CALCIUM 600 ORAL) Take by mouth once daily. mv-min/iron/folic/calcium/vitK (WOMEN'S MULTIVITAMIN ORAL) Take by mouth. No current facility-administered medications for this visit. Last Ophthalmology Check for Plaquenil (Hydroxychloroquine) Last OCT Macula Exam No resulted procedures found. Last Visual Field Exam No resulted procedures found. ALLERGIES Allergen Reactions Doxycycline Hives Influenza A (H1n1) * Hives rash Influenza Virus Vac* Hives Penicillins Hives Sulfa (Sulfonamide * Hives, Shortness of Breath Answers submitted by the patient for this visit: Review of Systems Rheumatology (Submitted on 06/18/2023) Fever : No Recent unintentional weight change: No Eye pain: No Eye redness: No Vision Disturbance: No Eye Dryness: Yes Nosebleeds: No Sores in your mouth: No Trouble Swallowing: No Dry Mouth: No Chest pain: No Leg Swelling: No A cough: No Shortness of breath: No Pain with breathing: No Heartburn: Yes Abdominal pain: Yes Diarrhea: Yes Black tarry stools: No Blood in urine: No Pain or burning with urination: No Joint pain or stiffness: Yes Muscle weakness: Yes Muscle aches: Yes Joint swelling: Yes Morning Stiffness in Joints: Yes A rash: No Skin Color Changes: Yes Hair Loss: Yes Nail Changes: No Headaches: Yes Numbness: No Memory Loss: No Swollen Glands: No ASSESSMENTS: RAPID 3 Disease Activity Weighed Score Levels: 0 - 1: Near Remission 1.3 - 2.0: Low Severity 2.3 - 4.0: Moderate Severity 4.3 - 10.0: High Severity RAPID-3 Weighed Score 06/12/2022 10/15/2022 01/12/2023 RAPID 3 Weighed Score 5.11 (High Severity (HS)) 3 (Moderate Severity (MS)) 4.78 (High Severity (HS)) PHYSICAL EXAMINATION: General appearance: Well appearing, alert, in no acute distress Skin: no rashes Neck: supple, FROM Back: no pain to palpation, good flexion and extension Lungs: Lungs clear to auscultation. No wheezing, rhonchi, rales Heart: RRR without murmur, Extremities: no edema Musculoskeletal: no synovitis Impression (M32.9) Systemic lupus erythematosus, unspecified SLE type, unspecified organ involvement status (HCC) (primary encounter diagnosis) Comment: Joint pain Raynauds, photosensitivity oral sores, sicca syndrome Alopecia-thinning Low wbc + BETHANY low titer neg panel/now negative Improved some on hcq Still has some pain and fatigue which for now appear nonspecific Plan: Continue HCQ 200 mg bid I do not feel she needs additional dmards (Z51.81) Medication monitoring encounter Comment: HCQ Plan: Due for eye exam Rv 6 mo Genna Romero MD Answers submitted by the patient for this visit: Review of Systems Rheumatology (Submitted on 06/18/2023) Fever : No Recent unintentional weight change: No Eye pain: No Eye redness: No Vision Disturbance: No Eye Dryness: Yes Nosebleeds: No Sores in your mouth: No Trouble Swallowing: No Dry Mouth: No Chest pain: No Leg Swelling: No A cough: No Shortness of breath: No Pain with breathing: No Heartburn: Yes Abdominal pain: Yes Diarrhea: Yes Black tarry stools: No Blood in urine: No Pain or burning with urination: No Joint pain or stiffness: Yes Muscle weakness: Yes Muscle aches: Yes Joint swelling: Yes Morning Stiffness in Joints: Yes A rash: No Skin Color Changes: Yes Hair Loss: Yes Nail Changes: No Headaches: Yes Numbness: No Memory Loss: No Swollen Glands: No documented in this encounter [facility] 06-21-2023 Miscellaneous Notes Patient phones requesting refills as follows: Requested Prescriptions Pending Prescriptions Disp Refills pantoprazole DR (PROTONIX) 40 mg tablet 90 tablet 1 Sig: Take 1 tablet by mouth once daily. Please review and advise. Jose D Stoddard LPN documented in this encounter [facility] 06-21-2023 Instructions Nelia Garcia APRN.CECILIO - 06/21/2023 2:57 PM EDT PATIENT PREOPERATIVE INSTRUCTIONS Alphonso Marroquin MD has scheduled you for your procedure at this surgery center: [facility]: [phone] -- [address] [facility] [address]. Please read below carefully for your personalized instructions. Dietary Restrictions: - No solid food after midnight. - You may have 12 ounces of clear liquids (water, clear juices such as apple juice or gatorade, carbonated beverages, clear tea, black coffee, jello) until 2 hours before scheduled arrival at facility. Medications: Unless instructed differently below, stay on all of your medications until your surgery. If you start any new medications after today's visit, please contact your surgeon. Pre-Surgery Med Instructions Medication Instructions BIOTIN, BULK, MISC Stop 7 days before surgery calcium carbonate (CALCIUM 600 ORAL) Stop 7 days before surgery desvenlafaxine ER (PRISTIQ) 100 mg 24 hr tablet Take the day of surgery with a small sip of water hydrOXYchloroQUINE (PLAQUENIL) 200 mg tablet Take the day of surgery with a small sip of water metoprolol tartrate, short acting, (LOPRESSOR) 25 mg tablet Take the day of surgery with a small sip of water mv-min/iron/folic/calcium/vitK (WOMEN'S MULTIVITAMIN ORAL) Stop 7 days before surgery pantoprazole DR (PROTONIX) 40 mg tablet Take the day of surgery with a small sip of water If you start any new medications after today's visit, please contact the surgeon's office. Blood Thinning Medications: - Stop NSAIDS (Ibuprofen, Advil, Aleve, Motrin, Celebrex, Mobic, etc.) 7 days before surgery, as directed by your surgeon. - Stop Aspirin 7 days before surgery, as directed by your surgeon. - Stop Vitamin E, ALL multi-vitamins, herbals and dietary supplements 7 days before surgery. - You may take Tylenol (Acetaminophen) or any of your pain medications that do not contain aspirin or NSAIDS as needed. Important Reminders: - Candy, mints, and tobacco products are NOT permitted the morning of surgery. - Hearing aids, dentures and glasses may be worn the morning of surgery. - NO jewelry, body piercings, makeup, hairpins or contacts are to be worn the day of surgery. If you develop symptoms such as a fever, cold, or flu, or have other changes to your health within TWO DAYS of scheduled surgery or the morning of surgery, please contact the surgery center above. Personal Belongings: -Please have photo ID and insurance cards. -If you do not have a copy of advance directives on file with us, please bring a copy with you on the day of surgery. - Leave ALL valuables and money at home or with family members. For Outpatient Procedures: - YOU MUST HAVE A RESPONSIBLE PEOPLE MANAGER TAKE YOU HOME. A TANK BUILDER AND ERECTOR OR LIBRARY CIRCULATION CLERK CANNOT BE MADE A RESPONSIBLE PEOPLE MANAGER. - We recommend that a responsible person stays with you overnight to take care of you. - You cannot stay in a hotel alone after outpatient surgery. You will not be permitted to have your surgery, if you do not have someone to take care of you. Arrival Time for Surgery: - The Surgery Center or hospital where you are having surgery will call the afternoon before surgery (or Wednesday for Wednesday surgery) with a scheduled arrival time. - If you have not heard by 4 pm, please contact the surgery center above. Please be aware that emergency situations arise, which may delay or change your surgical time. If this happens, we will notify you as soon as possible and regret any inconvenience. If you already have an Advance Directive, please fax a copy to [phone] or email to for it to be added to your chart. If you do not have an Advance Directive, you can find the appropriate form and more information at [email or web address]. We recommend that you complete the Advance Directive form found on the website and bring it with you the day of your surgery. It can be witnessed and scanned into your chart that day. Nelia Garcia APRN.CNP documented in this encounter [facility] 06-21-2023 History and physical note HISTORY AND PHYSICAL EXAMINATION SERVICE DATE: 06/21/2023 SERVICE TIME: 3:29 PM PRIMARY CARE PHYSICIAN: Arden Muhammad MD Assessment Patient has the following medical conditions which may affect osorio-operative course: Adjustment disorder with mixed anxiety and depressed mood Assessment: stable on rx per pt GERD (gastroesophageal reflux disease) Assessment: controlled on rx Systemic lupus erythematosus (HCC) Assessment: controlled on rx, following rheumatology Raynaud's disease without gangrene Assessment: asymptomatic TMJ arthralgia Assessment: bilateral clicking/popping but no locking per pt Palpitations Assessment: newly dx during ER visit, has upcoming cardiology appt 06/28/2023, will request records once completed Isbell Activity Status Index: METS: Climb a flight of stairs or walk up a hill (5.50 METs) DASI Score: 5.5 Patient denies any chest pain or undue shortness of breath with the above physical activity. Clinical Frailty Scale: 2. Well STOP-Bang Score: Snores loudly Denies feeling tired, fatigued, or sleepy during the daytime Has not been observed to stop breathing or choking/gasping during sleep Denies having high blood pressure BMI less than or equal to 35 kg/m^2 Patient 50 years old or younger Does not have a large neck Non-male patient STOP-Bang Score: 1 [id number] Score: Age: <65 Sex: female Stroke/TIA/thromboembolism history: No Diabetes history: No [id number] Score: 1 ARISCAT Score: Age: <=50 Preoperative SpO2: >=96% Respiratory infection in the last month: No Preoperative anemia: Yes Surgical incision: peripheral Duration of surgery: <2 hrs Emergency procedure: No ARISCAT Score: 11 ANESTHESIA FINDINGS: Intubation History: No history of difficult intubation Significant Anesthesia Considerations: potential postop nausea/vomiting Airway History: No history of difficult airway I - PHYSICAL EVALUATION AIRWAY Patient intubated: No. Tracheostomy tube not present Mallampati: II. TM distance: >3 FB. Neck ROM: full ROM without neurological symptoms. Mouth opening: adequate. Short neck: no. Additional comments: +TMJ dysfunction, bilaterally. Thick neck: no Alaniz present: no Lip Bite Test: I Microretrognathia/Micronagthia/Recesse d Chin: No DENTAL Dental findings: teeth intact. Additional comments: +crowns/back. II - ANESTHESIA PLAN Anesthetic Plan: other Anesthetic plan additional comments: *PACC/TCI - anesthesia choice. Beta Lakisha Monitoring Plan Post Procedure Analgesic Plan Informed Consent Anesthetic risks, benefits, alternatives, personnel and consent discussed: yes. Patient / Responsible Republican agrees to proceed: yes Patient / Surrogate agrees to blood products: blood products not planned Discussed the possibility of lip / dental damage: yes REASON FOR VISIT: Elvia Fragoso is a 47 year old female who is scheduled for Procedure(s): ARTHROPLASTY CARPOMETACARPAL JOINTS (Left) at the request of Dr. Alphonso Marroquin for consultation. My final recommendation will be communicated back to the requesting physician by way of shared medical record or letter. Subjective The patient has the following: ACTIVE PROBLEM LIST Irritable Bowel Syndrome Allergic Rhinitis Headache(784.0) Contact Dermatitis and Other Eczema, Due to Unspecified Cause Left Knee Pain Adjustment Disorder With Mixed Anxiety and Depressed Mood TMJ Arthralgia Gerd (Gastroesophageal Reflux Disease) Elevated Antinuclear Antibody ([place]) Level Systemic Lupus Erythematosus (Hcc) Raynaud's Disease Without Gangrene Palpitations COVID-19 Immunization Status Overdue - Covid-19 Vaccine (1) Overdue - never done 04/06/2022 Postponed until 04/06/2023 by Rochelle Crook MA (Declined at this time) CHIEF COMPLAINT: Pre-op exam HPI: Elvia Fragoso is a 47 year old seen for PAC due to scheduled above surgery because of OA CMC joint. 06/10/2023, Dr. Marroquin CHIEF COMPLAINT: New and Pain of the Right Hand (Bilateral hand pain/Last seen 11/17/2021 OA bilateral thumbs/Xray today - 06/10/2023) and New and Pain of the Left Hand HPI Patient presents with: Right Hand - New, Pain: Bilateral hand pain Last seen 11/17/2021 OA bilateral thumbs Xray today - 06/10/2023 Left Hand - New, Pain Patient is here for bilateral hand pain. Was seen in our office before for OA in bilateral thumbs 11/17/2021. States she was given braces for both hands. States she had some relief when wearing them mostly at night and sometimes during the day as needed. Hasn't worn them for a couple months due to her dog eating one and the other being stretched out. States her pain is manageable in the morning but by the end of the day her pain is 8/10 and feels like she can hardly use her hands, occasionally dropping items. Pain is mostly in the thumbs, fingers are achy, sometimes the pain radiates up her arms. Patient states she sometimes has numbness/tingling. Takes OTC Ibuprofen for pain. Patient is right handed. Works at [employer] in [place] [employer]. 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 Neurological: No history of TIA's, stroke, PRESIDENT tumor, impaired sensorium, hemiplegia, paraplegia or quadraplegia. No neurological symptoms or problems. Respiratory: +former smoker 1ppd/15 years. No history of current cough or dyspnea, or pneumonia in the past 6 weeks. No history of respiratory/pulmonary symptoms or problems. Cardiovascular: Positive for: arrhythmia (palpitations, tachycardia recently dx, has pending f/u with cardiac 06/28/2023 at [facility]) Negative for: anticoagulation therapy, atrial fibrillation, CAD, chest pain, CHF, congenital heart defect, DVT/PE, hyperlipidemia, hypertension, recent [place], murmur/valvular heart disease, PVD, open heart surgery and valve surgery. GI: Positive for: GERD (on rx) Negative for: abdominal pain, dysphagia, hepatitis, irritable bowel syndrome, inflammatory bowel disease, liver disease, nausea, vomiting and ETOH >2 drinks/day. : No history of dysuria, frequency or incontinence, stones or chronic kidney disease. No difficulty urinating, nocturia > 1 time per night or hematuria. STRUCTURAL TEST ENGINEER: Negative for abnormal vaginal bleeding, abnormal vaginal discharge. Endocrine: No history of diabetes. Has not taken steroids within the past 30 days. No history of endocrinological symptoms or problems. Hematology: No history of bleeding or clotting disorder. Patient is not taking anti-coagulation or platelet medications. No history of hematological symptoms or problems. Oncology: No history of CA metastasis, chemo within 30 days, or radiotherapy within 90 days. No history of oncological symptoms or problems. Psych: Positive for: anxiety (on rx) and depression (on rx). Musculoskeletal: Positive for: joint pain and rheumatoid arthritis (SLE, on rx, following [facility]). Skin: Negative for lesions, rash and itching. PAST MEDICAL HISTORY Diagnosis Date Abnormal glandular Papanicolaou smear of cervix Abn. Pap smear (cervix) Arthritis GERD (gastroesophageal reflux disease) PONV (postoperative nausea and vomiting) Right bundle branch block 09/08/2018 PAST SURGICAL HISTORY Procedure Laterality Date APPENDECTOMY HX COLONOSCOPY 10/02/2022 repeat in 10 years ESOPHAGOGASTRODUODENOSCOPY TRANSORAL DIAGNOSTIC 02/27/2015 EGD HSG 12/26/2009 Left Tube Patent, Essure Coils in Right Tube HSG 01/09/2010 Repeat Essure - Left Tube HYSTEROSCOPY BI TUBE OCCLUSION W/PERM IMPLNTS 10/01/2009 Essure Sterilization IUD REMOVAL (STRUCTURAL TEST ENGINEER DEPT)_*FL 10/01/2009 Mirena LAPAROSCOPIC APPENDECTOMY 06/01/2013 early appendicitis OFFICE LEEP 12/05/2008 GENO 3 PAST SURGICAL HISTORY OF Extraction of wisdom teeth PAST SURGICAL HISTORY OF 09/06/2009 One tooth removed FAMILY HISTORY Problem Relation Age of Onset No Known Problems Mother Heart Father Aortic Stenosis COPD Father Thyroid Father No Known Problems Brother Heart Maternal Grandmother aortic stenosis Heart Paternal Grandmother Coronary Artery Disease Paternal Uncle [place] Social History Tobacco Use Smoking status: Former Packs/day: 0.50 Years: 12.00 Additional pack years: 0.00 Total pack years: 6.00 Types: Cigarettes Quit date: 12/06/2007 Years since quittin.5 Smokeless tobacco: Never Vaping Use Vaping Use: Never used Substance Use Topics Alcohol use: Not Currently Comment: Rarely Drug use: No Prior to Admission medications as of 06/21/23 1455 Medication Sig Last Dose Taking BIOTIN, BULK, MISC once daily. Taking Yes calcium carbonate (CALCIUM 600 ORAL) Take by mouth once daily. Taking Yes desvenlafaxine ER (PRISTIQ) 100 mg 24 hr tablet Take 1 tablet by mouth once daily. Taking Yes hydrOXYchloroQUINE (PLAQUENIL) 200 mg tablet Take 1 tablet by mouth twice daily. Taking Yes metoprolol tartrate, short acting, (LOPRESSOR) 25 mg tablet Take 1 tablet by mouth twice daily. Taking Yes mv-min/iron/folic/calcium/vitK (WOMEN'S MULTIVITAMIN ORAL) Take by mouth. Taking Yes pantoprazole DR (PROTONIX) 40 mg tablet Take 1 tablet by mouth once daily. Taking Yes No medication comments found. ALLERGIES Allergen Reactions Doxycycline Hives Influenza A (H1n1) * Hives rash Influenza Virus Vac* Hives Penicillins Hives Sulfa (Sulfonamide * Hives, Shortness of Breath Objective PHYSICAL EXAM: General: alert and oriented (x3) and healthy appearance. Pertinent negatives noted - not distressed. Skin: normal color, no rash or lesions. HEENT: EOM intact and pupils equal round. Pertinent negatives noted - no carotid bruit. Cardiovascular: regular rate and rhythm, normal S1 and S2, no rub, murmurs, or gallop. Respiratory: normal breath sounds, no wheezes or crackles. No chest wall deformity or tenderness. Abdomen: soft. Pertinent negatives noted - not tender. Extremities: no deformity, no edema or tenderness, no joint swelling or clubbing. Neurological: normal cognition and motor skills. Gait normal. No weakness or sensory deficit. PAIN ASSESSMENT: Pain Pain Level: 5 Pain Location: Hand-Left Description: Sharp Duration Amount of Time: 3 Duration Units: Years Frequency: Continuous Intervention/Comfort measure: Medication VITALS: BP 100/62 Pulse 76 Temp (Src) 99.2 (Temporal) Resp 14 Ht 5' 7 (1.70m) Wt 186 lb (84.4kg) SpO2 99% LMP 06/09/2023 BMI 29.12 kg/(m^2). Diagnostic tests reviewed for today's visit: Lab Value Units Date High Low HB 13.5 g/dL 01/18/2023 15.5 11.5 HCT 41.7 % 01/18/2023 46.0 36.0 WBC 3.80 k/uL 01/18/2023 11.00 3.70 PLT 319 k/uL 01/18/2023 400 150 NA 140 mmol/L 01/18/2023 144 136 K 4.2 mmol/L 01/18/2023 5.1 3.7 GLUC 89 mg/dL 01/18/2023 99 74 BUN 10 mg/dL 01/18/2023 21 7 CREAT 0.81 mg/dL 01/18/2023 0.96 0.58 PTSEC No results within date range. INR No results within date range. APTT No results within date range. ALT 16 U/L 01/18/2023 38 7 AST 15 U/L 01/18/2023 35 13 TBILI 0.3 mg/dL 01/18/2023 1.3 0.2 TSH No results within date range. Lab Value Units Date High Low HCGQT No results within date range. UHCG No results within date range. HCG, BODY* No results within date range. Lab Value Units Date High Low ABORHD No results within date range. ABSCREEN No results within date range. No results found for: HBA1C Recent Results (from the past 8760 hour(s)) ECG COMPLETE Collection Time: 05/28/23 2:23 PM Result Value Ventricular Rate 129 Atrial Rate 32 QRS Duration 124 QT Interval 344 QTC Calculation ([place]) 503 Calculated R [place] 83 Calculated T [place] 43 Impression WIDE QRS TACHYCARDIA COMPLETE RIGHT BUNDLE BRANCH BLOCK ABNORMAL ECG No results found for this or any previous visit (from the past 74981 hour(s)). Prepared for Surgery: optimally prepared for surgery, pending [see comment]. Has pending cardiac eval with [facility] 06/28/2023 for palpitations/tachycardia CONSULTS: The following consults have been initiated at this time: cardiology. Planned Anesthetic: other anesthesia choice The Following Tests/Procedures Have Been Initiated: No orders of the defined types were placed in this encounter. Instructions Given to Patient: Instructions located in the after visit summary. Patient given verbal and written preop instructions and voices comprehension and compliance. SIGNATURE: Nelia Garcia APRN.CNP PATIENT NAME: Elvia Fragoso DATE: June 21, 2023 TIME: 2:55 PM PAGER/CONTACT #: documented in this encounter [facility] 06-21-2023 Miscellaneous Notes Post op appointments scheduled and mailed to patient. Surgery scheduled as requested. OT appointment scheduled after first post op on 07/20. Thank you! Patient needs scheduled for OT after post op appointment with Malathi on 07/20. I will mail the post op appointments to the patient. OT order signed. Surgical request completed. marsha Servin sign OT order. Patient scheduled for Left thumb CMC arthroplasty with tendon transfer and suspension on 07/07/23. documented in this encounter [facility] 06-10-2023 Note HNO ID: [id number] Author: Alphonso Marroquin MD Service: ? Author Type: Physician Type: Progress Notes Filed: 07/05/2023 11:30 AM Note Text: Alphonso Marroquin MD Department of Orthopaedics Orthopaedics [address] [facility] [address] Dept: [phone] Dept June 10, 2023 CHIEF COMPLAINT: New and Pain of the Right Hand (Bilateral hand pain/Last seen 11/17/2021 OA bilateral thumbs/Xray today - 06/10/2023) and New and Pain of the Left Hand HPI Patient is here for bilateral hand pain. Was seen in our office before for OA in bilateral thumbs 11/17/2021. States she was given braces for both hands. States she had some relief when wearing them mostly at night and sometimes during the day as needed. Hasn't worn them for a couple months due to her dog eating one and the other being stretched out. States her pain is manageable in the morning but by the end of the day her pain is 8/10 and feels like she can hardly use her hands, occasionally dropping items. Pain is mostly in the thumbs, fingers are achy, sometimes the pain radiates up her arms. Patient states she sometimes has numbness/tingling. Takes OTC Ibuprofen for pain. Patient is right handed. Works at [employer] [place] [employer]. Patient presents with: Right Hand - New, Pain: Bilateral hand pain Last seen 11/17/2021 OA bilateral thumbs Xray today - 06/10/2023 Left Hand - New, Pain AMB ROOMING INTAKE FLOWSHEET DATA Pain Pain Level: 1 Pain Location: Hand-Right (left hand 1/10) Description: Dull, Sharp Duration Amount of Time: (Ongoing) Frequency: Continuous Intervention/Comfort measure: Reposition, Relaxation, Medication, Cold, Heat, Splinting Ayanna De La Fuente RN ASSESSMENT: M18.12 Primary osteoarthritis of first carpometacarpal joint of left hand (primary encounter diagnosis) PLAN: We discussed the risks, benefits, alternatives and potential complications involving both operative and nonoperative treatment. She is interested in pursuing joint arthroplasty of the left thumb. We will get her scheduled at her convenience. OBJECTIVE: Ms. Elvia Fragoso is a pleasant 47 year old in no apparent distress. Gen:LMP 05/16/2023 nl development, non obese, no deformities ENT: Normocephalic, normal hearing, moist mucosa CV: Pulses:Radial= 2+ and symmetric, capillary refill < 2 secs, no peripheral edema/varicosities Skin: no rash, bruising or lesions. Good turgor. Psych: cooperative and appropriate, alert and oriented x 3, good mood and affect. Musculoskeletal: Mild swelling consistent with arthritis at the basal joint of the thumb. Tender to palpation at the joint. Pain and crepitance on grind testing. No hyperextension at the MCP joint. No locking catching or clicking, nor tenderness at the A1 viral site of the thumb. Imaging: IMPRESSION: No acute osseous abnormality Coating Line Worker: STEPHENIE Transcribe Date/Time: Jun 11 2023 3:49P Dictated by : KAREEM SALGADO MD This examination was interpreted and the report reviewed and electronically signed by: KAREEM SALGADO MD on Jun 11 2023 3:52PM EST Results-Findings * * *Final Report* * * DATE OF EXAM: Jun 10 2023 9:14AM [id number] - XR HAND 3V PA/LAT/OBL MICA / PROCEDURE REASON: multiple diagnoses * * * * Physician Interpretation * * * * EXAMINATION: XR HAND 3V PA/LAT/OBL MICA CLINICAL HISTORY: Bilateral hand pain Technique: XR HAND 3V PA/LAT/OBL MICA -- BILATERAL with 3 views on 3 images Comparison: X-ray bilateral hands 11/17/2021 RESULT: No acute fracture or dislocation. Joint spaces are maintained. No periarticular erosions. Supporting Subjective Information Below: Past Surgical History: PAST SURGICAL HISTORY Procedure Laterality Date - APPENDECTOMY HX - COLONOSCOPY 10/02/2022 repeat in 10 years - ESOPHAGOGASTRODUODENOSCOPY TRANSORAL DIAGNOSTIC 02/27/2015 EGD - HSG 12/26/2009 Left Tube Patent, Essure Coils in Right Tube - HSG 01/09/2010 Repeat Essure - Left Tube - HYSTEROSCOPY BI TUBE OCCLUSION W/PERM IMPLNTS 10/01/2009 Essure Sterilization - IUD REMOVAL (STRUCTURAL TEST ENGINEER DEPT)_*FL 10/01/2009 Mirena - LAPAROSCOPIC APPENDECTOMY 06/01/2013 early appendicitis - OFFICE LEEP 12/05/2008 GENO 3 - PAST SURGICAL HISTORY OF Extraction of wisdom teeth - PAST SURGICAL HISTORY OF 09/06/2009 One tooth removed Medications: Current Outpatient Medications Medication Sig - metoprolol tartrate, short acting, (LOPRESSOR) 25 mg tablet Take 1 tablet by mouth twice daily. - desvenlafaxine ER (PRISTIQ) 100 mg 24 hr tablet Take 1 tablet by mouth once daily. - hydrOXYchloroQUINE (PLAQUENIL) 200 mg tablet Take 1 tablet by mouth twice daily. - pantoprazole DR (PROTONIX) 40 mg tablet Take 1 tablet by mouth once daily. - BIOTIN, BULK, MISC once daily. - calcium carbonate (CALCIUM 600 ORAL) Take by mouth once daily. - mv-min/iron/folic/calcium/vitK (WOMEN'S MULTIVITAMIN ORAL) T (more content not included)... [facility] 06-10-2023 Note HNO ID: [id number] Author: Monika Pendleton RT(R) Service: Radiology Author Type: Technologist Type: Progress Notes Filed: 06/10/2023 9:15 AM Note Text: Radiology Service Progress Note PATIENT NAME: Elvia Fragoso DATE OF SERVICE: June 10, 2023 TIME: 9:05 AM PATIENT IDENTITY VERIFICATION COMPLETED USING TWO (2) IDENTIFIERS: Name and Date of confirmed by patient verbally. FALL SCREENING: Has the patient had 2 falls in the last year or 1 fall with injury or currently using an Ambulatory Assistive Device (Walker, Cane, Wheelchair, Crutches, etc.)? No PATIENT GENDER DATA: Female. status: : No status: NO. PATIENT RELEVANT IMPLANT DATA REVIEWED: Yes RADIOLOGY DEPARTMENT: General X-ray: Exam(s) Completed: Upper Extremity X-Ray(s): Hand, bilateral PERIPHERAL IV DATA: Not applicable SIGNED BY: RT Chari(R) June 10, 2023 9:05 AM [facility] 06-10-2023 History of Present illness Narrative Alphonso Marroquin MD Department of Orthopaedics Orthopaedics [address] [place] [address] Dept: [phone] Dept June 10, 2023 CHIEF COMPLAINT: New and Pain of the Right Hand (Bilateral hand pain/Last seen 11/17/2021 OA bilateral thumbs/Xray today - 06/10/2023) and New and Pain of the Left Hand HPI Patient is here for bilateral hand pain. Was seen in our office before for OA in bilateral thumbs 11/17/2021. States she was given braces for both hands. States she had some relief when wearing them mostly at night and sometimes during the day as needed. Hasn't worn them for a couple months due to her dog eating one and the other being stretched out. States her pain is manageable in the morning but by the end of the day her pain is 8/10 and feels like she can hardly use her hands, occasionally dropping items. Pain is mostly in the thumbs, fingers are achy, sometimes the pain radiates up her arms. Patient states she sometimes has numbness/tingling. Takes OTC Ibuprofen for pain. Patient is right handed. Works at [employer] [place] [employer]. Patient presents with: Right Hand - New, Pain: Bilateral hand pain Last seen 11/17/2021 OA bilateral thumbs Xray today - 06/10/2023 Left Hand - New, Pain AMB ROOMING INTAKE FLOWSHEET DATA Pain Pain Level: 1 Pain Location: Hand-Right (left hand 1/10) Description: Dull, Sharp Duration Amount of Time: (Ongoing) Frequency: Continuous Intervention/Comfort measure: Reposition, Relaxation, Medication, Cold, Heat, Splinting Ayanna De La Fuente RN ASSESSMENT: M18.12 Primary osteoarthritis of first carpometacarpal joint of left hand (primary encounter diagnosis) PLAN: \We discussed the risks, benefits, alternatives and potential complications involving both operative and nonoperative treatment. She is interested in pursuing joint arthroplasty of the left thumb. We will get her scheduled at her convenience. OBJECTIVE: Ms. Elvia Fragoso is a pleasant 47 year old in no apparent distress. Gen:LMP 05/16/2023 nl development, non obese, no deformities ENT: Normocephalic, normal hearing, moist mucosa CV: Pulses:Radial= 2+ and symmetric, capillary refill < 2 secs, no peripheral edema/varicosities Skin: no rash, bruising or lesions. Good turgor. Psych: cooperative and appropriate, alert and oriented x 3, good mood and affect. Musculoskeletal: Mild swelling consistent with arthritis at the basal joint of the thumb. Tender to palpation at the joint. Pain and crepitance on grind testing. No hyperextension at the MCP joint. No locking catching or clicking, nor tenderness at the A1 viral site of the thumb. Imaging: IMPRESSION: No acute osseous abnormality Coating Line Worker: STEPHENIE Transcribe Date/Time: Jun 11 2023 3:49P Dictated by : KAREEM SALGADO MD This examination was interpreted and the report reviewed and electronically signed by: KAREEM SALGADO MD on Jun 11 2023 3:52PM EST Results-Findings * * *Final Report* * * DATE OF EXAM: Jun 10 2023 9:14AM [id number] - XR HAND 3V PA/LAT/OBL MICA / PROCEDURE REASON: multiple diagnoses * * * * Physician Interpretation * * * * EXAMINATION: XR HAND 3V PA/LAT/OBL MICA CLINICAL HISTORY: Bilateral hand pain Technique: XR HAND 3V PA/LAT/OBL MICA -- BILATERAL with 3 views on 3 images Comparison: X-ray bilateral hands 11/17/2021 RESULT: No acute fracture or dislocation. Joint spaces are maintained. No periarticular erosions. Supporting Subjective Information Below: Past Surgical History: PAST SURGICAL HISTORY Procedure Laterality Date APPENDECTOMY HX COLONOSCOPY 10/02/2022 repeat in 10 years ESOPHAGOGASTRODUODENOSCOPY TRANSORAL DIAGNOSTIC 02/27/2015 EGD HSG 12/26/2009 Left Tube Patent, Essure Coils in Right Tube HSG 01/09/2010 Repeat Essure - Left Tube HYSTEROSCOPY BI TUBE OCCLUSION W/PERM IMPLNTS 10/01/2009 Essure Sterilization IUD REMOVAL (STRUCTURAL TEST ENGINEER DEPT)_*FL 10/01/2009 Mirena LAPAROSCOPIC APPENDECTOMY 06/01/2013 early appendicitis OFFICE LEEP 12/05/2008 GENO 3 PAST SURGICAL HISTORY OF Extraction of wisdom teeth PAST SURGICAL HISTORY OF 09/06/2009 One tooth removed Medications: Current Outpatient Medications Medication Sig metoprolol tartrate, short acting, (LOPRESSOR) 25 mg tablet Take 1 tablet by mouth twice daily. desvenlafaxine ER (PRISTIQ) 100 mg 24 hr tablet Take 1 tablet by mouth once daily. hydrOXYchloroQUINE (PLAQUENIL) 200 mg tablet Take 1 tablet by mouth twice daily. pantoprazole DR (PROTONIX) 40 mg tablet Take 1 tablet by mouth once daily. BIOTIN, BULK, MISC once daily. calcium carbonate (CALCIUM 600 ORAL) Take by mouth once daily. mv-min/iron/folic/calcium/vitK (WOMEN'S MULTIVITAMIN ORAL) Take by mouth. No current facility-administered medications for this visit. Allergies: Doxycycline, Influenza A (H1n1) Vac 09 (Pf), Influenza Virus Vaccines, Penicillins, and Sulfa (Sulfonamide Antibiotics) ROS: General (negative for fatigue, malaise, weight loss/gain) HEENT (negative for headache, earache, recent vision changes, sinus pain, sore throat) Respiratory (no recent shortness of breath, hemoptysis) CV (negative for chest tightness, palpitations) Musculoskeletal (see HPI) Psych (no depression, anxiety) Alphonso Marroquin MD ] documented in this encounter [facility] 06-10-2023 History of Present illness Narrative Radiology Service Progress Note PATIENT NAME: Elvia Fragoso DATE OF SERVICE: June 10, 2023 TIME: 9:05 AM PATIENT IDENTITY VERIFICATION COMPLETED USING TWO (2) IDENTIFIERS: Name and Date of confirmed by patient verbally. FALL SCREENING: Has the patient had 2 falls in the last year or 1 fall with injury or currently using an Ambulatory Assistive Device (Walker, Cane, Wheelchair, Crutches, etc.)? No PATIENT GENDER DATA: Female. status: : No status: NO. PATIENT RELEVANT IMPLANT DATA REVIEWED: Yes RADIOLOGY DEPARTMENT: General X-ray: Exam(s) Completed: Upper Extremity X-Ray(s): Hand, bilateral PERIPHERAL IV DATA: Not applicable SIGNED BY: RT Chari(R) June 10, 2023 9:05 AM documented in this encounter [facility] 05-28-2023 Note HNO ID: [id number] Author: Arden Muhammad MD Service: ? Author Type: Physician Type: Progress Notes Filed: 05/28/2023 5:09 PM Note Text: Patient presents with: Bradycardia HPI: Patient presents today for office visit for follow up. Started with episode in April 19 with heart racing. Started last night and happened again. 9 am this am begin. Mild lightheadedness. No syncope. Has had three episode of chest episode on left chest but did not last. No shortness of breath. Knows something is not right. Has sle. MEDICATIONS: Current Outpatient Medications Medication Sig desvenlafaxine ER (PRISTIQ) 100 mg 24 hr tablet Take 1 tablet by mouth once daily. hydrOXYchloroQUINE (PLAQUENIL) 200 mg tablet Take 1 tablet by mouth twice daily. pantoprazole DR (PROTONIX) 40 mg tablet Take 1 tablet by mouth once daily. BIOTIN, BULK, MISC once daily. calcium carbonate (CALCIUM 600 ORAL) Take by mouth once daily. mv-min/iron/folic/calcium/vitK (WOMEN'S MULTIVITAMIN ORAL) Take by mouth. No current facility-administered medications for this visit. ALLERGIES: ALLERGIES Allergen Reactions Doxycycline Hives Influenza A (H1n1) * Hives rash Influenza Virus Vac* Hives Penicillins Hives Sulfa (Sulfonamide * Hives, Shortness of Breath PAST MEDICAL HISTORY Diagnosis Date Abnormal glandular Papanicolaou smear of cervix Abn. Pap smear (cervix) Arthritis GERD (gastroesophageal reflux disease) PONV (postoperative nausea and vomiting) Right bundle branch block 09/08/2018 PAST SURGICAL HISTORY Procedure Laterality Date APPENDECTOMY HX COLONOSCOPY 10/02/2022 repeat in 10 years ESOPHAGOGASTRODUODENOSCOPY TRANSORAL DIAGNOSTIC 02/27/2015 EGD HSG 12/26/2009 Left Tube Patent, Essure Coils in Right Tube HSG 01/09/2010 Repeat Essure - Left Tube HYSTEROSCOPY BI TUBE OCCLUSION W/PERM IMPLNTS 10/01/2009 Essure Sterilization IUD REMOVAL (STRUCTURAL TEST ENGINEER DEPT)_*FL 10/01/2009 Mirena LAPAROSCOPIC APPENDECTOMY 06/01/2013 early appendicitis OFFICE LEEP 12/05/2008 GENO 3 PAST SURGICAL HISTORY OF Extraction of wisdom teeth PAST SURGICAL HISTORY OF 09/06/2009 One tooth removed FAMILY HISTORY Problem Relation Age of Onset No Known Problems Mother Heart Father Aortic Stenosis COPD Father Thyroid Father No Known Problems Brother Heart Maternal Grandmother aortic stenosis Heart Paternal Grandmother Coronary Artery Disease Paternal Uncle [place] Social History Tobacco Use Smoking status: Former Packs/day: 0.50 Years: 12.00 Additional pack years: 0.00 Total pack years: 6.00 Types: Cigarettes Quit date: 12/06/2007 Years since quittin.4 Smokeless tobacco: Never Vaping Use Vaping Use: Never used Substance Use Topics Alcohol use: Not Currently Comment: Rarely Drug use: No Reviewed current medications, allergies, past medical history, surgical history, family history and social history today. REVIEW OF SYSTEMS All other reviewed and negative other than HPI. VITALS: BP 120/60 Pulse (!) 143 Resp 18 Wt 82.7 kg (182 lb 6.4 oz) LMP 05/16/2023 (Approximate) SpO2 98% BMI 28.57 kg/m? Last 4 Encounter Wt Readings: Date: Wt: 05/28/2023 82.7 kg (182 lb 6.4 oz) 01/18/2023 83 kg (183 lb) 10/21/2022 81.6 kg (180 lb) 09/11/2022 85.5 kg (188 lb 6.4 oz) PHYSICAL EXAMINATION: General appearance: Well appearing, alert, in no acute distress, well-hydrated, well nourished. Lungs: Lungs clear to auscultation. No wheezing, rhonchi, rales Heart:tachycardic. without murmur, gallop, or rubs. No ectopy Abdomen: Normal abdominal exam, Abdomen soft, non-tender. Bowel sounds normal. No masses, organomegaly Extremities: No deformities, edema, skin discoloration, clubbing or cyanosis. Good capillary refill. ASSESSMENT/PLAN: 1. Wide-complex tachycardia - ICD9: 785.0, ICD10: R00.0 (primary diagnosis) - appears hemodynamically stable but ekg is consistent with a wide QRS tachycaria with rate of 120's Oxygen applied at 2Lnc. Continuous pulse ox shows hr 140-150. I stayed with patient until squad arrived. Report given to squad. Will transport to [facility] ER. 2. Chest pain, unspecified type - ICD9: 786.50, ICD10: R07.9 - currently pain free. Ardne Muhammad MD [facility] 05-28-2023 Nurse Note [facility] and Remote Sites Emergency Response Form. NOT TO BE USED AT [facility] Complete this report when the Emergency Medical Response is activated (911 calls/EmergencyTransport to the ED) or when a Code Sheet is utilized in the care of a patient (i.e., ASC) Date of the Event: 05/28/23 (Must provide Value) Time of the Event: 14:55 (Must provide Value) Was emergency response activated? (Local EMS/Emergency Department) YES (Must provide Value) Location of the Incident: [facility] ([facility], [facility]) (Must provide Value) Reason/Chief Complaint for Emergency Call (Check all that apply): Chest Pain/Pressure (Must provide Value) CPR Initiated-Chest Compressions and/or Rescue Breathing Provided: NO (Must provide value) Facility AED Used-Automatic External Defibrillator: NO (Must provide value) EMS AED Used-Automatic External Defibrillator: NO (Must provide value) Prior to EMS arrival, was any treatment administered? O2 Describe treatment O2 2L Patient Disposition: Transferred to Hospital ED (Must provide value) Heavy Threader information: Mary Kate Goldberg (Must provide value) documented in this encounter [facility] 05-28-2023 History of Present illness Narrative Patient presents with: Bradycardia HPI: Patient presents today for office visit for follow up. Started with episode in April 19 and with heart racing. Started last night and happened again. 9 am this am begin. Mild lightheadedness. No syncope. Has had three episode of chest episode on left chest but did not last. No shortness of breath. Knows something is not right. Has sle. MEDICATIONS: Current Outpatient Medications Medication Sig desvenlafaxine ER (PRISTIQ) 100 mg 24 hr tablet Take 1 tablet by mouth once daily. hydrOXYchloroQUINE (PLAQUENIL) 200 mg tablet Take 1 tablet by mouth twice daily. pantoprazole DR (PROTONIX) 40 mg tablet Take 1 tablet by mouth once daily. BIOTIN, BULK, MISC once daily. calcium carbonate (CALCIUM 600 ORAL) Take by mouth once daily. mv-min/iron/folic/calcium/vitK (WOMEN'S MULTIVITAMIN ORAL) Take by mouth. No current facility-administered medications for this visit. ALLERGIES: ALLERGIES Allergen Reactions Doxycycline Hives Influenza A (H1n1) * Hives rash Influenza Virus Vac* Hives Penicillins Hives Sulfa (Sulfonamide * Hives, Shortness of Breath PAST MEDICAL HISTORY Diagnosis Date Abnormal glandular Papanicolaou smear of cervix Abn. Pap smear (cervix) Arthritis GERD (gastroesophageal reflux disease) PONV (postoperative nausea and vomiting) Right bundle branch block 09/08/2018 PAST SURGICAL HISTORY Procedure Laterality Date APPENDECTOMY HX COLONOSCOPY 10/02/2022 repeat in 10 years ESOPHAGOGASTRODUODENOSCOPY TRANSORAL DIAGNOSTIC 02/27/2015 EGD HSG 12/26/2009 Left Tube Patent, Essure Coils in Right Tube HSG 01/09/2010 Repeat Essure - Left Tube HYSTEROSCOPY BI TUBE OCCLUSION W/PERM IMPLNTS 10/01/2009 Essure Sterilization IUD REMOVAL (STRUCTURAL TEST ENGINEER DEPT)_*FL 10/01/2009 Mirena LAPAROSCOPIC APPENDECTOMY 06/01/2013 early appendicitis OFFICE LEE 12/05/2008 GENO 3 PAST SURGICAL HISTORY OF Extraction of wisdom teeth PAST SURGICAL HISTORY OF 09/06/2009 One tooth removed FAMILY HISTORY Problem Relation Age of Onset No Known Problems Mother Heart Father Aortic Stenosis COPD Father Thyroid Father No Known Problems Brother Heart Maternal Grandmother aortic stenosis Heart Paternal Grandmother Coronary Artery Disease Paternal Uncle [place] Social History Tobacco Use Smoking status: Former Packs/day: 0.50 Years: 12.00 Additional pack years: 0.00 Total pack years: 6.00 Types: Cigarettes Quit date: 12/06/2007 Years since quittin.4 Smokeless tobacco: Never Vaping Use Vaping Use: Never used Substance Use Topics Alcohol use: Not Currently Comment: Rarely Drug use: No Reviewed current medications, allergies, past medical history, surgical history, family history and social history today. REVIEW OF SYSTEMS All other reviewed and negative other than HPI. VITALS: BP 120/60 Pulse (!) 143 Resp 18 Wt 82.7 kg (182 lb 6.4 oz) LMP 05/16/2023 (Approximate) SpO2 98% BMI 28.57 kg/m Last 4 Encounter Wt Readings: Date: Wt: 05/28/2023 82.7 kg (182 lb 6.4 oz) 01/18/2023 83 kg (183 lb) 10/21/2022 81.6 kg (180 lb) 09/11/2022 85.5 kg (188 lb 6.4 oz) PHYSICAL EXAMINATION: General appearance: Well appearing, alert, in no acute distress, well-hydrated, well nourished. Lungs: Lungs clear to auscultation. No wheezing, rhonchi, rales Heart:tachycardic. without murmur, gallop, or rubs. No ectopy Abdomen: Normal abdominal exam, Abdomen soft, non-tender. Bowel sounds normal. No masses, organomegaly Extremities: No deformities, edema, skin discoloration, clubbing or cyanosis. Good capillary refill. ASSESSMENT/PLAN: 1. Wide-complex tachycardia - ICD9: 785.0, ICD10: R00.0 (primary diagnosis) - appears hemodynamically stable but ekg is consistent with a wide QRS tachycaria with rate of 120's Oxygen applied at 2Lnc. Continuous pulse ox shows hr 140-150. I stayed with patient until squad arrived. Report given to squad. Will transport to [facility] ER. 2. Chest pain, unspecified type - ICD9: 786.50, ICD10: R07.9 - currently pain free. Arden Muhammad MD documented in this encounter [facility] 04-28-2023 Miscellaneous Notes Patient phones requesting refills as follows: Requested Prescriptions Refused Prescriptions Disp Refills desvenlafaxine ER (PRISTIQ) 100 mg 24 hr tablet 90 tablet 3 Sig: Take 1 tablet by mouth once daily. ANITA-12/09/22 Labs-01/19/23 NOV-none Please review and advise. Mimi Savage LPN documented in this encounter [facility] 04-19-2023 Miscellaneous Notes Most recent Rheumatology visit: 01/18/2023 (with Genna Romero) Appt 05/17/2023 Eye exam 06/2022 Recent Office Visits - This Specialty 01/18/2023 Systemic lupus erythematosus, unspecified SLE type, unspecified organ involvement status (HCC) Rheumatology Genna Romero MD 10/21/2022 Systemic lupus erythematosus, unspecified SLE type, unspecified organ involvement status (HCC) Rheumatology Bren Bach PA-C 06/17/2022 Polyarthralgia Rheumatology Bren Bach PA-C Upcoming Rheumatology Appointments - Next 365 Days Visit Type Date Time Department [facility] 05/17/2023 1:00 PM [facility] CBC: CBC Latest Ref Rng & Units 10/21/2022 01/18/2023 WBC 3.70 - 11.00 k/uL 3.47(L) 3.80 HEMOGLOBIN 11.5 - 15.5 g/dL 13.8 13.5 HEMOGLOBIN, DARYA 11.5 - 15.5 g/dL - - HEMATOCRIT 36.0 - 46.0 % 43.4 41.7 PLATELETS 150 - 400 k/uL 341 319 ABS NEUT (ANC) 1.45 - 7.50 k/uL 2.25 2.27 ABS NEUT, DARYA 1.45 - 7.50 k/uL - - ABS LYMP, DARYA 1.00 - 4.00 k/uL - - ABS LYMPH 1.00 - 4.00 k/uL 0.92(L) 1.15 Vitamin D: None on file in the last 6 months LFT: CMP Latest Ref Rng & Units 10/21/2022 01/18/2023 SODIUM 136 - 144 mmol/L 140 140 SODIUM, DARYA 136 - 145 mmol/L - - SODIUM, DARYA 136 - 145 mmol/L - - POTASSIUM 3.7 - 5.1 mmol/L 4.8 4.2 POTASSIUM, DARYA 3.5 - 5.1 mmol/L - - CHLORIDE 97 - 105 mmol/L 100 102 CHLORIDE, DARYA 98 - 107 mmol/L - - CO2 22 - 30 mmol/L 28 26 CO2, DARYA 21.0 - 32.0 mmol/L - - GLUCOSE 74 - 99 mg/dL 100(H) 89 GLUCOSE, DARYA 70 - 99 mg/dL - - BUN 7 - 21 mg/dL 13 10 BUN, DARYA 7 - 18 mg/dL - - CREATININE 0.58 - 0.96 mg/dL 0.79 0.81 CREATININE, DARYA 0.6 - 1.0 mg/dL - - CALCIUM, DARYA 8.5 - 10.1 mg/dL - - CALCIUM, TOTAL 8.5 - 10.2 mg/dL 10.1 9.6 AST 13 - 35 U/L 19 15 ALT 7 - 38 U/L 17 16 ALT, DARYA 30 - 65 U/L - - ALKALINE PHOSPHATASE 34 - 123 U/L 59 49 Hepatic Function: Creatinine: Creatinine Latest Ref Rng & Units 10/21/2022 01/18/2023 CREAT 0.58 - 0.96 mg/dL 0.79 0.81 ESR/CRP: ESR, WSR Latest Ref Rng & Units 10/21/2022 01/18/2023 WSR 0 - 20 mm/hr 8 2 CRP Latest Ref Rng & Units 06/17/2022 CRP <0.9 mg/dL <0.3 Uric Acid: None on file in the last 6 months Open Standing (Multiple Instance) Lab Orders None Open Future (Single Instance) Lab Orders Expected Expires Ordered BASIC METABOLIC PNL [SQBMP] 02/26/23 04/28/23 08/28/22 Auth. provider: Arden Muhammad MD Assoc. diagnoses: Adjustment disorder with mixed anxiety and depressed mood LIPID PANEL BASIC [SQLIPB] 02/26/23 04/28/23 08/28/22 Auth. provider: Arden Muhammad MD Assoc. diagnoses: Mixed hyperlipidemia documented in this encounter [facility] 03-01-2023 Note HNO ID: [id number] Author: Levi Cintron Service: ? Author Type: Public Speaker Type: Progress Notes Filed: 03/01/2023 11:40 AM Note Text: Radiology Service Progress Note PATIENT NAME: Elvia Fragoso DATE OF SERVICE: March 01, 2023 TIME: 11:38 AM PATIENT IDENTITY VERIFICATION COMPLETED USING TWO (2) IDENTIFIERS: Name and Date of confirmed by patient verbally. FALL SCREENING: Has the patient had 2 falls in the last year or 1 fall with injury or currently using an Ambulatory Assistive Device (Walker, Cane, Wheelchair, Crutches, etc.)? No PATIENT GENDER DATA: Female. status: : No status: NO. PATIENT RELEVANT IMPLANT DATA REVIEWED: Not Applicable RADIOLOGY DEPARTMENT: Mammography PERIPHERAL IV DATA: Not applicable SIGNED BY: Levi Cintron March 01, 2023 11:38 AM [facility] 03-01-2023 History of Present illness Narrative Radiology Service Progress Note PATIENT NAME: Elvia Fragoso DATE OF SERVICE: March 01, 2023 TIME: 11:38 AM PATIENT IDENTITY VERIFICATION COMPLETED USING TWO (2) IDENTIFIERS: Name and Date of confirmed by patient verbally. FALL SCREENING: Has the patient had 2 falls in the last year or 1 fall with injury or currently using an Ambulatory Assistive Device (Walker, Cane, Wheelchair, Crutches, etc.)? No PATIENT GENDER DATA: Female. status: : No status: NO. PATIENT RELEVANT IMPLANT DATA REVIEWED: Not Applicable RADIOLOGY DEPARTMENT: Mammography PERIPHERAL IV DATA: Not applicable SIGNED BY: Eula Curtis [employer] March 01, 2023 11:38 AM documented in this encounter [facility] 02-09-2023 Miscellaneous Notes Done Leyda Bowman MD Mamm with COLLETTE order pending. documented in this encounter [facility] 01-18-2023 Note HNO ID: [id number] Author: Aurora Garcia Service: ? Author Type: ? Type: Progress Notes Filed: 01/18/2023 2:26 PM Note Text: Answers submitted by the patient for this visit: Review of Systems Rheumatology (Submitted on 01/12/2023) Fever : No Recent Unintentional Weight Change: No Eye Pain: Yes Eye Dryness: Yes Nose Bleeds: No Sores in your Mouth: Yes Trouble Swallowing: Yes Dry Mouth: Yes Chest Pain: Yes Leg Swelling: Yes A Cough: No Shortness of Breath: No Pain with Breathing: Yes Heartburn: Yes Abdominal Pain: Yes Diarrhea: Yes Black Tarry Stools: No Blood in Urine: No Pain or Burning with Urination: No Joint Pain or Stiffness: Yes Muscle Weakness: Yes Muscle Aches: Yes Joint Swelling: Yes Morning Stiffness in Joints: Yes A Rash: Yes Do you have sun sensitive rashes?: Yes Skin Color Changes: Yes Hair Loss: Yes Nail Changes: No Headaches: Yes Numbness: Yes Memory Loss: Yes Swollen Glands: No [facility] 01-18-2023 Note HNO ID: [id number] Author: Genna Romero MD Service: ? Author Type: Physician Type: Progress Notes Filed: 01/18/2023 2:26 PM Note Text: Rheumatology CONSULTATION Date of Service: 01/18/2023 Consultation requested by Lola Bach for an opinion regarding hx of SLE. My final recommendations will be communicated back to the requesting physician by way of shared medical record or letter via US mail chief complaint SLE- Joint pain Raynauds, photosensitivity oral sores, sicca syndrome Alopecia-thinning Low wbc + BETHANY low titer neg panel I have reviewed the patient's medical record in detail. 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 Feels like it was all brushed off Then her wbc count was noted to be decreased-she has had this in the past. She was referred to hematology who in turn referred here here for + BETHANY and saw Bren. Was given steroids and then plaquenil 06.28 She was doing better She has had less fatigue and joint pain but still has fatigue and pain Stiffness Headaches She had a flare in November with min response to steroids Made her tired, she would like to saty away Overall 50% better Takes ibuprofen on occasion AM stiffness 1 hr Started hcq hcq 200 bid 06/27 Eye exam 06/27 Short course of steroids 11/26 FH- Dad had RA/Raynaud's Celiac in a cousin Bren notes: 06/27 46 year old female with PMH of GERD is here for numerous symptoms including joint pain and Positive BETHANY. (M25.50) Polyarthralgia (primary encounter diagnosis) (R76.8) Elevated antinuclear antibody (BETHANY) level (I73.00) Raynaud's disease without gangrene (D72.810) Lymphopenia (K13.79) Mouth sores (L65.9) Hair loss (H04.123) Dry eyes Polyarthralgia - + BETHANY, leucopenia, steroid-responsive joint pain, AM stiffness, hair loss, dry eyes, reported mouth sores (none today) all suspicious for SLE. Will check additional lab, to be sure no RA or other CTD overlap. -Consider starting hydroxychloroquine once all results are back. 10/29 SLE (dx 06/2023 based on + BETHANY 1:160, Neg ALYSE/DsDNA, + leucopenia, steroid-responsive joint pain, AM stiffness, hair loss, dry eyes, reported mouth sores) - Started hydroxychloroquine 06/2023 with great improvement in fatigue, energy, rashes, joint pain, stiffness, and hair loss Component Latest Ref Rng AND Units 06/08/2022 06/17/2022 10/21/2022 BETHANY Negative Positive (A) BETHANY Titer 1:160 BETHANY Pattern Polar/Golgi-like CCP Antibody IgG Qualitative Negative Negative CCP Antibody, IgG <20 Units <15 Sm Antibody Negative Negative Anti-Sm <1.0 AI <0.2 FORGE PRESS OPERATOR Antibody QUAL Negative Negative Anti-FORGE PRESS OPERATOR <1.0 AI 0.2 SSA Antibody Qual Negative Negative Anti-SSA <1.0 AI <0.2 Anti-SSB <1.0 AI <0.2 SSB Antibody Qual Negative Negative CENTROMERE AB QUAL Negative Negative Centromere Ab <1.0 AI <0.2 Scleroderma Ab Qual Negative Negative Scl-70 Abs, EIA <1.0 AI <0.2 MIRNA 1 ANTIBODY QUAL Negative Negative Mirna 1 Antibody <1.0 AI <0.2 Ribosomal FORGE PRESS OPERATOR Qualitative Negative Negative Ribosomal FORGE PRESS OPERATOR Ab <1.0 AI <0.2 Chromatin Ab Qual Negative Negative Chromatin Ab <1.0 AI <0.2 Rheumatoid Factor <16 IU/mL <10 DNA Antibody w/Confirmation <30 IU/mL <12 <12 WSR 0 - 20 mm/hr 8 8 CRP <0.9 mg/dL <0.3 C3 86 - 166 mg/dL 134 C4 13 - 46 mg/dL 23 WBC Date Value Ref Range Status 10/21/2022 3.47 (L) 3.70 - 11.00 k/uL Final 05/18/2022 3.19 (L) 3.70 - 11.00 k/uL Final 04/07/2022 3.55 (L) 3.70 - 11.00 k/uL Final 04/07/2022 3.57 (L) 3.70 - 11.00 k/uL Final 03/06/2022 3.21 (L) 3.70 - 11.00 k/uL Final 02/27/2022 2.92 (L) 3.70 - 11.00 k/uL Final 02/06/2021 4.45 3.70 - 11.00 k/uL Final 01/23/2021 3.43 (L) 3.70 - 11.00 k/uL Final 07/25/2019 5.62 3.70 - 11.00 k/uL Final 01/23/2015 3.72 3.70 - 11.00 k/uL Final Patient reports Yes Raynauds, Yes photosensitivity, Yes oral sores, Yes sicca syndrome, Yes alopecia, No eye inflammation, No psoriasis, No inflammatory bowel disease, no blood clots Elvia is both RF - 9 (06/17/2022) and CCP - 13.5 (06/17/2022) negative. Her most recent BETHANY was positive (06/08/2022). PAST MEDICAL HISTORY Diagnosis Date Abnormal glandular Papanicolaou smear of cervix Abn. Pap smear (cervix) Arthritis GERD (gastroesophageal reflux disease) PONV (postoperative nausea and vomiting) Right bundle branch block 09/08/2018 PAST SURGICAL HISTORY Procedure Laterality Date APPENDECTOMY HX COLONOSCOPY 10/02/2022 repeat in 10 years ESOPHAGOGASTRODUODENOSCOPY TRANSORAL DIAGNOSTIC 02/27/2015 EGD HSG 12/26/2009 Left Tube Patent, Essure Coils in Right Tube HSG 01/09/2010 Repeat Essure - Left Tube HYSTEROSCOPY BI TUBE OCCLUSION W/PERM IMPLNTS 10/01/2009 Essure Sterilization IUD REMOVAL (STRUCTURAL TEST ENGINEER DEPT)_*FL 10/01/2009 Mirena LAPAROSCOPIC APPENDECTOMY 06/01/2013 early appendicitis OFFICE LEEP 12/05/2008 GENO 3 PAST SURGICA (more content not included)... [facility] 01-18-2023 History of Present illness Narrative Answers submitted by the patient for this visit: Review of Systems Rheumatology (Submitted on 01/12/2023) Fever : No Recent Unintentional Weight Change: No Eye Pain: Yes Eye Dryness: Yes Nose Bleeds: No Sores in your Mouth: Yes Trouble Swallowing: Yes Dry Mouth: Yes Chest Pain: Yes Leg Swelling: Yes A Cough: No Shortness of Breath: No Pain with Breathing: Yes Heartburn: Yes Abdominal Pain: Yes Diarrhea: Yes Black Tarry Stools: No Blood in Urine: No Pain or Burning with Urination: No Joint Pain or Stiffness: Yes Muscle Weakness: Yes Muscle Aches: Yes Joint Swelling: Yes Morning Stiffness in Joints: Yes A Rash: Yes Do you have sun sensitive rashes?: Yes Skin Color Changes: Yes Hair Loss: Yes Nail Changes: No Headaches: Yes Numbness: Yes Memory Loss: Yes Swollen Glands: No Images from the original note were not included. Rheumatology CONSULTATION Date of Service: 01/18/2023 Consultation requested by Lola Bach for an opinion regarding hx of SLE. My final recommendations will be communicated back to the requesting physician by way of shared medical record or letter via US mail chief complaint SLE- Joint pain Raynauds, photosensitivity oral sores, sicca syndrome Alopecia-thinning Low wbc + BETHANY low titer neg panel I have reviewed the patient's medical record in detail. 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 Feels like it was all brushed off Then her wbc count was noted to be decreased-she has had this in the past. She was referred to hematology who in turn referred here here for + BETHANY and saw Bren. Was given steroids and then plaquenil 06.28 She was doing better She has had less fatigue and joint pain but still has fatigue and pain Stiffness Headaches She had a flare in November with min response to steroids Made her tired, she would like to saty away Overall 50% better Takes ibuprofen on occasion AM stiffness 1 hr Started hcq hcq 200 bid 06/27 Eye exam 06/27 Short course of steroids 11/26 FH- Dad had RA/Raynaud's Celiac in a cousin Bren notes: 06/27 46 year old female with PMH of GERD is here for numerous symptoms including joint pain and Positive BETHANY. (M25.50) Polyarthralgia (primary encounter diagnosis) (R76.8) Elevated antinuclear antibody (BETHANY) level (I73.00) Raynaud's disease without gangrene (D72.810) Lymphopenia (K13.79) Mouth sores (L65.9) Hair loss (H04.123) Dry eyes Polyarthralgia - + BETHANY, leucopenia, steroid-responsive joint pain, AM stiffness, hair loss, dry eyes, reported mouth sores (none today) all suspicious for SLE. Will check additional lab, to be sure no RA or other CTD overlap. -Consider starting hydroxychloroquine once all results are back. 10/29 SLE (dx 06/2023 based on + BETHANY 1:160, Neg ALYSE/DsDNA, + leucopenia, steroid-responsive joint pain, AM stiffness, hair loss, dry eyes, reported mouth sores) - Started hydroxychloroquine 06/2023 with great improvement in fatigue, energy, rashes, joint pain, stiffness, and hair loss Component Latest Ref Rng & Units 06/08/2022 06/17/2022 10/21/2022 BETHANY Negative Positive (A) BETHANY Titer 1:160 BETHANY Pattern Polar/Golgi-like CCP Antibody IgG Qualitative Negative Negative CCP Antibody, IgG <20 Units <15 Sm Antibody Negative Negative Anti-Sm <1.0 AI <0.2 FORGE PRESS OPERATOR Antibody QUAL Negative Negative Anti-FORGE PRESS OPERATOR <1.0 AI 0.2 SSA Antibody Qual Negative Negative Anti-SSA <1.0 AI <0.2 Anti-SSB <1.0 AI <0.2 SSB Antibody Qual Negative Negative CENTROMERE AB QUAL Negative Negative Centromere Ab <1.0 AI <0.2 Scleroderma Ab Qual Negative Negative Scl-70 Abs, EIA <1.0 AI <0.2 MIRNA 1 ANTIBODY QUAL Negative Negative Mirna 1 Antibody <1.0 AI <0.2 Ribosomal FORGE PRESS OPERATOR Qualitative Negative Negative Ribosomal FORGE PRESS OPERATOR Ab <1.0 AI <0.2 Chromatin Ab Qual Negative Negative Chromatin Ab <1.0 AI <0.2 Rheumatoid Factor <16 IU/mL <10 DNA Antibody w/Confirmation <30 IU/mL <12 <12 WSR 0 - 20 mm/hr 8 8 CRP <0.9 mg/dL <0.3 C3 86 - 166 mg/dL 134 C4 13 - 46 mg/dL 23 WBC Date Value Ref Range Status 10/21/2022 3.47 (L) 3.70 - 11.00 k/uL Final 05/18/2022 3.19 (L) 3.70 - 11.00 k/uL Final 04/07/2022 3.55 (L) 3.70 - 11.00 k/uL Final 04/07/2022 3.57 (L) 3.70 - 11.00 k/uL Final 03/06/2022 3.21 (L) 3.70 - 11.00 k/uL Final 02/27/2022 2.92 (L) 3.70 - 11.00 k/uL Final 02/06/2021 4.45 3.70 - 11.00 k/uL Final 01/23/2021 3.43 (L) 3.70 - 11.00 k/uL Final 07/25/2019 5.62 3.70 - 11.00 k/uL Final 01/23/2015 3.72 3.70 - 11.00 k/uL Final Patient reports Yes Raynauds, Yes photosensitivity, Yes oral sores, Yes sicca syndrome, Yes alopecia, No eye inflammation, No psoriasis, No inflammatory bowel disease, no blood clots Elvia is both RF - 9 (06/17/2022) and CCP - 13.5 (06/17/2022) negative. Her most recent BETHANY was positive (06/08/2022). PAST MEDICAL HISTORY Diagnosis Date Abnormal glandular Papanicolaou smear of cervix Abn. Pap smear (cervix) Arthritis GERD (gastroesophageal reflux disease) PONV (postoperative nausea and vomiting) Right bundle branch block 09/08/2018 PAST SURGICAL HISTORY Procedure Laterality Date APPENDECTOMY HX COLONOSCOPY 10/02/2022 repeat in 10 years ESOPHAGOGASTRODUODENOSCOPY TRANSORAL DIAGNOSTIC 02/27/2015 EGD HSG 12/26/2009 Left Tube Patent, Essure Coils in Right Tube HSG 01/09/2010 Repeat Essure - Left Tube HYSTEROSCOPY BI TUBE OCCLUSION W/PERM IMPLNTS 10/01/2009 Essure Sterilization IUD REMOVAL (STRUCTURAL TEST ENGINEER DEPT)_*FL 10/01/2009 Mirena LAPAROSCOPIC APPENDECTOMY 06/01/2013 early appendicitis OFFICE LEEP 12/05/2008 GENO 3 PAST SURGICAL HISTORY OF Extraction of wisdom teeth PAST SURGICAL HISTORY OF 09/06/2009 One tooth removed ACTIVE PROBLEM LIST Irritable Bowel Syndrome Allergic Rhinitis Headache(784.0) Contact Dermatitis and Other Eczema, Due to Unspecified Cause Left Knee Pain Adjustment Disorder With Mixed Anxiety and Depressed Mood TMJ Arthralgia Gerd (Gastroesophageal Reflux Disease) Elevated Antinuclear Antibody (Bethany) Level Systemic Lupus Erythematosus (Hcc) Raynaud's Disease Without Gangrene Social History Tobacco Use Smoking status: Former Packs/day: 0.50 Years: 12.00 Pack years: 6.00 Types: Cigarettes Quit date: 12/06/2007 Years since quittin.1 Smokeless tobacco: Never Vaping Use Vaping Use: Never used Substance Use Topics Alcohol use: Not Currently Comment: Rarely Drug use: No FAMILY HISTORY Problem Relation Age of Onset No Known Problems Mother Heart Father Aortic Stenosis COPD Father Thyroid Father No Known Problems Brother Heart Maternal Grandmother aortic stenosis Heart Paternal Grandmother Coronary Artery Disease Paternal Uncle [place] Current Outpatient Medications Medication Sig pantoprazole DR (PROTONIX) 40 mg tablet Take 1 tablet by mouth once daily. hydrOXYchloroQUINE (PLAQUENIL) 200 mg tablet Take 1 tablet by mouth twice daily. desvenlafaxine ER (PRISTIQ) 100 mg 24 hr tablet Take 1 tablet by mouth once daily. BIOTIN, BULK, MISC once daily. calcium carbonate (CALCIUM 600 ORAL) Take by mouth once daily. mv-min/iron/folic/calcium/vitK (WOMEN'S MULTIVITAMIN ORAL) Take by mouth. No current facility-administered medications for this visit. Last Ophthalmology Check for Plaquenil (Hydroxychloroquine) Last OCT Macula Exam No resulted procedures found. Last Visual Field Exam No resulted procedures found. ALLERGIES Allergen Reactions Doxycycline Hives Influenza A (H1n1) * Hives rash Influenza Virus Vac* Hives Penicillins Hives Sulfa (Sulfonamide * Hives, Shortness of Breath Answers submitted by the patient for this visit: Review of Systems Rheumatology (Submitted on 01/12/2023) Fever : No Recent Unintentional Weight Change: No Eye Pain: Yes Eye Dryness: Yes Nose Bleeds: No Sores in your Mouth: Yes Trouble Swallowing: Yes Dry Mouth: Yes Chest Pain: Yes Leg Swelling: Yes A Cough: No Shortness of Breath: No Pain with Breathing: Yes Heartburn: Yes Abdominal Pain: Yes Diarrhea: Yes Black Tarry Stools: No Blood in Urine: No Pain or Burning with Urination: No Joint Pain or Stiffness: Yes Muscle Weakness: Yes Muscle Aches: Yes Joint Swelling: Yes Morning Stiffness in Joints: Yes A Rash: Yes Do you have sun sensitive rashes?: Yes Skin Color Changes: Yes Hair Loss: Yes Nail Changes: No Headaches: Yes Numbness: Yes Memory Loss: Yes Swollen Glands: No ASSESSMENTS: RAPID 3 Disease Activity Weighed Score Levels: 0 - 1: Near Remission 1.3 - 2.0: Low Severity 2.3 - 4.0: Moderate Severity 4.3 - 10.0: High Severity RAPID-3 Weighed Score 06/12/2022 10/15/2022 01/12/2023 RAPID 3 Weighed Score 5.11 (High Severity (HS)) 3 (Moderate Severity (MS)) 4.78 (High Severity (HS)) PROMIS Assessments PROMIS Global Health - (T-Scores - the mean of general population = 50. Five points is a clinically meaningful difference.) 06/12/2022 08/24/2022 01/12/2023 Physical T-Score 34.9 39.8 37.4 Mental T-Score 41.1 50.8 41.1 PROMIS CAT Pain Interference 06/12/2022 10/15/2022 01/12/2023 PROMIS Pain Interference T-Score (range: 10 - 90) 68 (moderate) 56 (mild) 66 (moderate) PROMIS Pain Interference Percentile 4 % 27 % 5 % PROMIS CAT Fatigue 06/12/2022 10/15/2022 01/12/2023 PROMIS Fatigue T-Score 74 (severe) 55 (within normal limits) 64 (moderate) PROMIS Fatigue Percentile 1 % 31 % 8 % PROMIS PHYSICAL FUNCTION T-SCORE 06/12/2022 10/15/2022 01/12/2023 PROMIS Physical Function T-Score 41 (mild dysfunction) 44 (mild dysfunction) 39 (moderate dysfunction) Physical Function Percentile 18 % 27 % 14 % Elvia reports a current pain level of ( ). She describes the pain as . The pain is , and has lasted for . Interventions tried include . PHYSICAL EXAMINATION: BP 125/69 Pulse 75 Wt 183 lb (83.0kg) LMP 03/24/2020 General appearance: Well appearing, alert, in no acute distress Skin: no rashes Neck: supple, FROM Back: no pain to palpation, good flexion and extension Lungs: Lungs clear to auscultation. No wheezing, rhonchi, rales Heart: RRR without murmur, Abdomen: Abdomen soft, non-tender. No masses, organomegaly Extremities: no edema Musculoskeletal: no synovitis Neuro: Gait normal. Sensation grossly intact. Impression (M32.9) Systemic lupus erythematosus, unspecified SLE type, unspecified organ involvement status (HCC) (primary encounter diagnosis) Comment: Joint pain Raynauds, photosensitivity oral sores, sicca syndrome Alopecia-thinning Low wbc + BETHANY low titer neg panel Improved on hcq Still has some pain and fatigue which for now appear nonspecific Plan: CBC + DIFF, COMP METABOLIC PANEL, SED RATE WESTERGREN, URINALYSIS, WITH MICROSCOPIC, BETHANY PANEL BLOOD SCRN, CK CREATINE KINASE Follow labs Continue HCQ 200 mg bid I do not feel she needs additional dmards (Z51.81) Medication monitoring encounter Comment: HCQ Plan: CBC + DIFF, COMP METABOLIC PANEL, SED RATE WESTERGREN, URINALYSIS, WITH MICROSCOPIC, BETHANY PANEL BLOOD SCRN Had eye exam Rv 3-4 mo I spent a total of 45 minutes on the date of the service which included preparing to see the patient, [id number] patient care, completing clinical documentation, obtaining and/or reviewing separately obtained history, performing a medically appropriate examination, counseling and educating the patient/family/caregiver, and ordering medications, tests, or procedures. Genna Romero MD documented in this encounter [facility] 12-21-2022 Miscellaneous Notes Patient has been identified by name and date of : Yes Requested Prescriptions Pending Prescriptions Disp Refills pantoprazole DR (PROTONIX) 40 mg tablet 90 tablet 1 Sig: Take 1 tablet by mouth once daily. RX INSTRUCTIONS: Patient aware RX will be sent to pharmacy. No need to notify patient. Darlene Grossman LPN documented in this encounter [facility] 10-21-2022 Note HNO ID: [id number] Author: Bren Bach PA-C Service: ? Author Type: Physician Professional Athletes Coach Type: Progress Notes Filed: 10/21/2022 11:15 AM Note Text: Rheumatology FOLLOW UP VISIT Referring Provider: Date of Service: 10/21/2022 Gender: female Ethnicity: White Age: [age] year old Chief Complaint: Follow Up Last Rheumatology visit: 06/17/2022 (with Bren Bach) Elvia Fragoso is a 47 year old White female who presents on 10/21/2022 for in person visit for follow up of Follow Up. She is currently taking hydroxychloroquine sulfate. INTERVAL HISTORY She states she feels much better Overall her fatigue is much better The hand pain has imporved except for CMC joints which she has known osteoarthritis. Able to open waterbottle on her own. The itchy rash on her hands has improved, no more itchy areas on her skin. The redness across her face and neck is milder, improved, and goes away much faster. No more random nausea. Hair loss is slowing. IBS symptoms improve. No mouth sores either. Overall she still has mild joint pain - knee and ankles achy, and CMC joints. Hips hurt too, but nothing like it was. Only /10 now versus, 04/15 a few months ago. PAIN EVALUATION No data found in the last 1 encounters. Impression Diagnoses: (M32.9) Systemic lupus erythematosus, unspecified SLE type, unspecified organ involvement status (HCC) (primary encounter diagnosis) (I73.00) Raynaud's disease without gangrene 47 year old female with PMH of GERD is here follow up of SLE 1/ SLE (dx 06/2023 based on + BETHANY 1:160, Neg ALYSE/DsDNA, + leucopenia, steroid-responsive joint pain, AM stiffness, hair loss, dry eyes, reported mouth sores) - Started hydroxychloroquine 06/2023 with great improvement in fatigue, energy, rashes, joint pain, stiffness, and hair loss - Educated on SLE including the importance of sun avoidence. Educated on symptoms to keep an eye out for. 2/ Raynauds - Symptom management, avoid cold exposure 3/ Routine Health Maintenance - Patient is up to date with the following vaccinations: Tdap (04/06/22), Did not get COVID vaccine - The patient should continue to follow up with their primary care provider regarding all other concerns documented above which were not addressed at this visit, as well as to remain up to date on all Preventive Health measures and routine malignancy screening based on his/her age and comorbid conditions. Systemic Lupus Erythematosus (SLE) - Classification Criteria SLICC Classification Criteria CLINICAL CRITERIA: - Nonscarring alopecia 1 - Oral ulcers OR nasal ulcers 1 - no chronic cutaneous lupus - no subacute cutaneous lupus OR Acute cutaneous lupus - Synovitis involving two or more joints 1 - no neurologic (seizures, psychosis, mononeuritis complex. Myelitis or neuropathy) - no serositis - no hemolytic anemia - Leukopenia (<4000/mm3) OR Lymphopenia (<1000/mm3) 1 - no thrombocytopenia (<100,000/mm3) - no lupus nephritis IMMUNOLOGICAL CRITERIA: - BETHANY positive 1 New ACR and EULAR Classification Criteria CLINICAL DOMAINS: Cutaneous Domain: 2 - Nonscarring alopecia - Oral ulcers - no subacute cutaneous or discoid lupus - no acute cutaneous lupus Arthritis Domain: 6 - Synovitis in at least two joints, or tenderness in at least two joints, AND at least 30 min of morning stiffness - no delirium - no psychosis - no seizure - no pleural or pericardial effusion - no acute pericarditis Hematologic Domain: 3 - Leukopenia - no thrombocytopenia - no autoimmune hemolysis IMMUNOLOGIC DOMAINS: - BETHANY > 1:80 on human [id number] cells, or an equivalent positive test SLICC Classification Score: 5 ACR and EULAR Classification Score: 11 Meets the classification criteria for SLE?: YES Meets the classification criteria for SLE?: YES Plan Medication Adjustments today: None Continue hydroxychloroquine 200 mg BID Labs: -CBC + DIFF: -COMP METABOLIC PANEL: -SED RATE WESTERGREN: -DNA AB DS + CONF BLD: -CRITHIDIA LUCILIAE: Imaging: none today Other Medication monitoring: - Eye exam 06/25/22 - no plaquenil toxicity Patient was given time to ask questions and agrees with plan as above. Follow up 3-4 months to establish with MD., then if doing well, every 6-12 months thereafter. No follow-ups on file. I spent a total of 25 minutes on the date of the service which included preparing to see the patient, [id number] patient care, completing clinical documentation, obtaining and/or reviewing separately obtained history, performing a medically appropriate examination, counseling and educating the patient/family/caregiver, and ordering medications, tests, or procedures. Bren Bach PA-C cc: PCP: [place] [address] Subjective HISTORY OF PRE (more content not included)... [facility] 10-21-2022 History of Present illness Narrative Images from the original note were not included. Rheumatology FOLLOW UP VISIT Referring Provider: Date of Service: 10/21/2022 Gender: female Ethnicity: White Age: [age] year old Chief Complaint: Follow Up Last Rheumatology visit: 06/17/2022 (with Bren Bach) lEvia Fragoso is a 47 year old White female who presents on 10/21/2022 for in person visit for follow up of Follow Up. She is currently taking hydroxychloroquine sulfate. INTERVAL HISTORY She states she feels much better Overall her fatigue is much better The hand pain has imporved except for CMC joints which she has known osteoarthritis. Able to open waterbottle on her own. The itchy rash on her hands has improved, no more itchy areas on her skin. The redness across her face and neck is milder, improved, and goes away much faster. No more random nausea. Hair loss is slowing. IBS symptoms improve. No mouth sores either. Overall she still has mild joint pain - knee and ankles achy, and CMC joints. Hips hurt too, but nothing like it was. Only /10 now versus, / a few months ago. PAIN EVALUATION No data found in the last 1 encounters. Impression Diagnoses: (M32.9) Systemic lupus erythematosus, unspecified SLE type, unspecified organ involvement status (HCC) (primary encounter diagnosis) (I73.00) Raynaud's disease without gangrene 47 year old female with PMH of GERD is here follow up of SLE 1/ SLE (dx 06/2023 based on + BETHANY 1:160, Neg ALYSE/DsDNA, + leucopenia, steroid-responsive joint pain, AM stiffness, hair loss, dry eyes, reported mouth sores) - Started hydroxychloroquine 06/2023 with great improvement in fatigue, energy, rashes, joint pain, stiffness, and hair loss - Educated on SLE including the importance of sun avoidence. Educated on symptoms to keep an eye out for. 2/ Raynauds - Symptom management, avoid cold exposure 3/ Routine Health Maintenance - Patient is up to date with the following vaccinations: Tdap (04/06/22), Did not get COVID vaccine - The patient should continue to follow up with their primary care provider regarding all other concerns documented above which were not addressed at this visit, as well as to remain up to date on all Preventive Health measures and routine malignancy screening based on his/her age and comorbid conditions. Systemic Lupus Erythematosus (SLE) - Classification Criteria SLICC Classification Criteria CLINICAL CRITERIA: - Nonscarring alopecia 1 - Oral ulcers OR nasal ulcers 1 - no chronic cutaneous lupus - no subacute cutaneous lupus OR Acute cutaneous lupus - Synovitis involving two or more joints 1 - no neurologic (seizures, psychosis, mononeuritis complex. Myelitis or neuropathy) - no serositis - no hemolytic anemia - Leukopenia (<4000/mm3) OR Lymphopenia (<1000/mm3) 1 - no thrombocytopenia (<100,000/mm3) - no lupus nephritis IMMUNOLOGICAL CRITERIA: - BETHANY positive 1 New ACR and EULAR Classification Criteria CLINICAL DOMAINS: Cutaneous Domain: 2 - Nonscarring alopecia - Oral ulcers - no subacute cutaneous or discoid lupus - no acute cutaneous lupus Arthritis Domain: 6 - Synovitis in at least two joints, or tenderness in at least two joints, AND at least 30 min of morning stiffness - no delirium - no psychosis - no seizure - no pleural or pericardial effusion - no acute pericarditis Hematologic Domain: 3 - Leukopenia - no thrombocytopenia - no autoimmune hemolysis IMMUNOLOGIC DOMAINS: - BETHANY > 1:80 on human [id number] cells, or an equivalent positive test SLICC Classification Score: 5 ACR and EULAR Classification Score: 11 Meets the classification criteria for SLE?: YES Meets the classification criteria for SLE?: YES Plan Medication Adjustments today: None Continue hydroxychloroquine 200 mg BID Labs: -CBC + DIFF: -COMP METABOLIC PANEL: -SED RATE WESTERGREN: -DNA AB DS + CONF BLD: -CRITHIDIA LUCILIAE: Imaging: none today Other Medication monitoring: - Eye exam 06/25/22 - no plaquenil toxicity Patient was given time to ask questions and agrees with plan as above. Follow up 3-4 months to establish with MD., then if doing well, every 6-12 months thereafter. No follow-ups on file. I spent a total of 25 minutes on the date of the service which included preparing to see the patient, [id number] patient care, completing clinical documentation, obtaining and/or reviewing separately obtained history, performing a medically appropriate examination, counseling and educating the patient/family/caregiver, and ordering medications, tests, or procedures. Bren Bach PA-C cc: PCP: Arden Muhammad [address] [place] [phone] Subjective HISTORY OF PRESENT ILLNESS She is here with her She has chronic fatigue for years. Her joint pain has been longstanding as well. She is so fatigued that she feels like she might fall asleep on the drive, or that she forgets what she is trying to get at the grocery store. She admits wrist pain with pressure like pushing off a chair. She states her knees also have always given her trouble. She gets pain in her elbows, like when holding a book. Flexion aggravates her elbow pain. Straightening them helps some. She has CMC arthritis bilaterally. L>R. She also has pain in the rest of her fingers. The X-Rays look OK. She admits plantar fasciitis in the left side. This improved with new shoes. Joint pain includes: Bilateral PIP joints, CMC, elbows, knees, hips. Ankles sometimes feel tired and her big toes also cause occasional sharp pain. Admits difficutly gripping items in the evening. Admits difficulty opening her water bottle in the morning. AM stiffness: hands are the worst - lasts about 1 hour. She also has pain in her knees and feet. She also has stiffness after Joint swelling: in knees, hands (has difficulty with rings getting them on or off). Sometimes in ankles after being on her feet. She does admit her fingers get cold, and turn purple, also have turned white, then bright red when they warm up. She has tried meloxicam with partial benefit but not complete resolution of her symptoms - upsets her Stomach with GERD She did have tetanus vaccine and she had weeks of pain afterwards. She did take medrol dose pack after the Tetanus vaccine. She admits she felt better on the prednisone. RHEUMATOLOGIC REVIEW OF SYSTEMS: + ulcers in mouth or nose along gum line, admits some pain with brushing her teeth. Look like red inflamed sore, last typically 5 days. - sensitive gums No photosensenitivity - admits she tries to avoid significant sun, and feels fatigued after being in the sun. 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 Family History: No known family history of SLE, Crohns, UC, PsO. Dad had RA, thyroid issues P niece has Graves, and another with Celiac Smoking: No ETOH use: none Drug use: No INTERVAL HISTORY She states she feels much better Overall her fatigue is much better The hand pain has imporved except for CMC joints which she has known osteoarthritis. Able to open waterbottle on her own. The itchy rash on her hands has improved, no more itchy areas on her skin. The redness across her face and neck is milder, improved, and goes away much faster. No more random nausea. Hair loss is slowing. IBS symptoms improve. No mouth sores either. Overall she still has mild joint pain - knee and ankles achy, and CMC joints. Hips hurt too, but nothing like it was. Only 3/10 now versus, 8/10 a few months ago. Disease History Systemic Lupus Erythematosus (SLE) History Relevant to SLICC Classification Criteria - Nonscarring alopecia - Oral ulcers OR nasal ulcers - no chronic cutaneous lupus - no subacute cutaneous lupus OR Acute cutaneous lupus - Synovitis involving two or more joints - no neurologic (seizures, psychosis, mononeuritis complex. Myelitis or neuropathy) - no serositis - no hemolytic anemia - Leukopenia (<4000/mm3) OR Lymphopenia (<1000/mm3) - no thrombocytopenia (<100,000/mm3) - no lupus nephritis - BETHANY positive Relevant to New ACR and EULAR Classification Criteria - Nonscarring alopecia - Oral ulcers - no subacute cutaneous or discoid lupus - no acute cutaneous lupus - Synovitis in at least two joints, or tenderness in at least two joints, AND at least 30 min of morning stiffness - no delirium - no psychosis - no seizure - no pleural or pericardial effusion - no acute pericarditis - Leukopenia - no thrombocytopenia - no autoimmune hemolysis - BETHANY > 1:80 on human [id number] cells, or an equivalent positive test Other History Relevant to SLE - no pre-eclampsia or eclampsia - no miscarriage - Raynaud's - no PE - no DVT - no calcinosis - no pulmonary hypertension OB History T2 L2 SAB0 IAB0 Ectopic0 Multiple0 Live Births0 Comment: 2 vaginal deliveries Patient-Entered Data SLAQ Disease Activity > 9: Detects clinically important disease Change >3.99: Significant change (0.5 SD) No flowsheet data found. RAPID 3 Disease Activity Weighed Score Levels: 0 - 1: Near Remission 1.3 - 2.0: Low Severity 2.3 - 4.0: Moderate Severity 4.3 - 10.0: High Severity RAPID-3 Weighed Score 06/12/2022 10/15/2022 RAPID 3 Weighed Score 5.11 (High Severity (HS)) 3 (Moderate Severity (MS)) RAPID-3 10/15/2022 Weighed Score Percentage Change Compared to Last Score -41.29 % PHQ-9 0 - 4: Minimal Depression 5 - 9: Mild Depression 10 - 14: Moderate Depression 15 - 19: Moderately Severe Depression 20 - 27: Severe Depression PHQ-9 01/22/2021 02/13/2022 08/28/2022 PHQ-2 Score 2 0 0 PHQ-9 Score - 2 - Objective Treatment History Last Ophthalmology Check for Plaquenil (Hydroxychloroquine) Last OCT Macula Exam No resulted procedures found. Last Visual Field Exam No resulted procedures found. Relevant Previous Investigations Urinalysis Latest Ref Rng & Units 03/18/2014 06/14/2015 06/17/2022 PROTEIN, URINE Negative neg neg Negative RBC, URINE 0-3 /HPF - - 0-3 /HPF CBC Latest Ref Rng & Units 03/06/2022 04/07/2022 04/07/2022 05/18/2022 WBC 3.70 - 11.00 k/uL 3.21(L) 3.57(L) 3.55(L) 3.19(L) HEMOGLOBIN 11.5 - 15.5 g/dL 13.4 12.8 12.8 13.3 HEMOGLOBIN, DARYA 11.5 - 15.5 g/dL - - - - HEMATOCRIT 36.0 - 46.0 % 41.4 39.8 39.3 41.7 PLATELETS 150 - 400 k/uL 292 294 292 300 ABS NEUT (ANC) 1.45 - 7.50 k/uL 1.85 2.25 2.22 1.81 ABS NEUT, DARYA 1.45 - 7.50 k/uL - - - - ABS LYMP, DARYA 1.00 - 4.00 k/uL - - - - ABS LYMPH 1.00 - 4.00 k/uL 0.97(L) 0.96(L) 0.93(L) 1.10 CMP Latest Ref Rng & Units 07/21/2019 01/23/2021 02/27/2022 SODIUM 136 - 144 mmol/L 141 140 138 SODIUM, DARYA 136 - 145 mmol/L - - - SODIUM, DARYA 136 - 145 mmol/L - - - POTASSIUM 3.7 - 5.1 mmol/L 4.3 3.8 3.8 POTASSIUM, DARYA 3.5 - 5.1 mmol/L - - - CHLORIDE 97 - 105 mmol/L 101 102 102 CHLORIDE, DARYA 98 - 107 mmol/L - - - CO2 22 - 30 mmol/L 29 28 25 CO2, DARYA 21.0 - 32.0 mmol/L - - - GLUCOSE 74 - 99 mg/dL 97 112(H) 103(H) GLUCOSE, DARYA 70 - 99 mg/dL - - - BUN 7 - 21 mg/dL 12 12 8 BUN, DARYA 7 - 18 mg/dL - - - CREATININE 0.58 - 0.96 mg/dL 0.77 0.87 0.75 CREATININE, DARYA 0.6 - 1.0 mg/dL - - - CALCIUM, DARYA 8.5 - 10.1 mg/dL - - - CALCIUM, TOTAL 8.5 - 10.2 mg/dL 9.3 9.2 8.9 AST 13 - 35 U/L - 18 19 ALT 7 - 38 U/L - 16 19 ALT, DARYA 30 - 65 U/L - - - ALKALINE PHOSPHATASE 34 - 123 U/L - 59 59 ESR, WSR Latest Ref Rng & Units 06/17/2022 WSR 0 - 20 mm/hr 8 CRP Latest Ref Rng & Units 06/17/2022 CRP <0.9 mg/dL <0.3 C3, C4 Latest Ref Rng & Units 06/17/2022 C3 86 - 166 mg/dL 134 C4 13 - 46 mg/dL 23 RF and CCP Latest Ref Rng & Units 06/17/2022 RHEUMATOID FACTOR <16 IU/mL <10 CCP ANTIBODY IGG QUALITATIVE Negative Negative CCP ANTIBODY, IGG <20 Units <15 Antibodies Latest Ref Rng & Units 06/08/2022 06/17/2022 BETHANY Negative Positive(A) - BETHANY TITER - 1:160 - BETHANY PATTERN - Polar/Golgi-like - DNA ANTIBODY W/CONFIRMATION <30 IU/mL - <12 FORGE PRESS OPERATOR ANTIBODY QUAL Negative - Negative SSA ANTIBODY QUAL Negative - Negative MIRNA-1 ANTIBODY, IGG <1.0 AI - <0.2 MIRNA 1 ANTIBODY QUAL Negative - Negative RIBOSOMAL FORGE PRESS OPERATOR AB <1.0 AI - <0.2 RIBOSOMAL FORGE PRESS OPERATOR QUAL Negative - Negative ANTI-SSA <1.0 AI - <0.2 ANTI-SSB <1.0 AI - <0.2 ANTI-SM <1.0 AI - <0.2 SM ANTIBODY Negative - Negative SCL-70 AB QUAL Negative - Negative SCL-70 ABS, EIA <1.0 AI - <0.2 CENTROMERE AB <1.0 AI - <0.2 CENTROMERE AB QUAL Negative - Negative CHROMATIN AB <1.0 AI - <0.2 CHROMATIN AB QUAL Negative - Negative Hepatitis Screen Latest Ref Rng & Units 06/08/2022 HEPBCOTOL Negative Negative HEPSABQ Negative Negative HEPCABEIA Negative Negative HBSAG Negative Negative Last Lupus Anticoag Panel Interpretation No lab values to display. Date of Last Dexa Scan: None on file Review of Systems Review of Systems CONSTITUTION: Negative for: Fever and Recent weight change HEENT: Positive for: Dry mouth Negative for: Nosebleeds, Mouth sores and Trouble swallowing RESPIRATORY: Negative for: Cough, Shortness of breath and Pain with breathing GASTROINTESTINAL: Positive for: Heartburn and Abdominal pain Negative for: Melena and Diarrhea MUSCULOSKELETAL: Positive for: Arthralgias, Myalgias, Muscle weakness, Joint swelling and Morning Joint Stiffness NEUROLOGICAL: Positive for: Headaches and Memory loss Negative for: Numbness SKIN: Positive for: Rash, Sun Sensitive Rash and Skin changes Negative for: Hair loss and Nail changes EYES: Positive for: Eye dryness Negative for: Eye pain, Eye redness and visual disturbance CARDIOVASCULAR: Negative for: Chest pain and Leg swelling GENITOURINARY: Negative for: Dysuria and Hematuria HEMATOLOGIC/LYMPHATIC: Negative for: Swollen glandsAll other reviewed and negative other than HPI. Past Medical History PAST MEDICAL HISTORY Diagnosis Date Abnormal glandular Papanicolaou smear of cervix Abn. Pap smear (cervix) Arthritis GERD (gastroesophageal reflux disease) PONV (postoperative nausea and vomiting) Right bundle branch block 09/08/2018 Past Surgical History PAST SURGICAL HISTORY Procedure Laterality Date APPENDECTOMY HX COLONOSCOPY 10/02/2022 repeat in 10 years ESOPHAGOGASTRODUODENOSCOPY TRANSORAL DIAGNOSTIC 02/27/2015 EGD HSG 12/26/2009 Left Tube Patent, Essure Coils in Right Tube HSG 01/09/2010 Repeat Essure - Left Tube HYSTEROSCOPY BI TUBE OCCLUSION W/PERM IMPLNTS 10/01/2009 Essure Sterilization IUD REMOVAL (STRUCTURAL TEST ENGINEER DEPT)_*FL 10/01/2009 Mirena LAPAROSCOPIC APPENDECTOMY 06/01/2013 early appendicitis OFFICE LEEP 12/05/2008 GENO 3 PAST SURGICAL HISTORY OF Extraction of wisdom teeth PAST SURGICAL HISTORY OF 09/06/2009 One tooth removed Family History FAMILY HISTORY Problem Relation Age of Onset No Known Problems Mother Heart Father Aortic Stenosis COPD Father Thyroid Father No Known Problems Brother Heart Maternal Grandmother aortic stenosis Heart Paternal Grandmother Coronary Artery Disease Paternal Uncle [place] Social History Social History Tobacco Use Smoking status: Former Packs/day: 0.50 Years: 12.00 Pack years: 6.00 Types: Cigarettes Quit date: 12/06/2007 Years since quittin.8 Smokeless tobacco: Never Vaping Use Vaping Use: Never used Substance Use Topics Alcohol use: Not Currently Comment: Rarely Drug use: No Immunizations Current Immunizations Never Reviewed Name Date INFLUENZA 06/21/2010 Tdap (Age 7+) 04/06/2022 , 01/09/2009 Medications Current Outpatient Medications Medication Sig desvenlafaxine ER (PRISTIQ) 100 mg 24 hr tablet Take 1 tablet by mouth once daily. pantoprazole DR (PROTONIX) 40 mg tablet Take 1 tablet by mouth once daily. BIOTIN, BULK, MISC once daily. calcium carbonate (CALCIUM 600 ORAL) Take by mouth once daily. mv-min/iron/folic/calcium/vitK (WOMEN'S MULTIVITAMIN ORAL) Take by mouth. hydrOXYchloroQUINE (PLAQUENIL) 200 mg tablet Take 1 tablet by mouth twice daily. No current facility-administered medications for this visit. Physical Exam BP 110/78 Pulse 62 Wt 180 lb (81.6kg) LMP 03/24/2020 Physical Exam Constitutional: General: She is not in acute distress. Appearance: Normal appearance. She is not toxic-appearing. HENT: Head: Normocephalic and atraumatic. Mouth/Throat: Mouth: Mucous membranes are moist. Pharynx: No oropharyngeal exudate or posterior oropharyngeal erythema. Eyes: General: No scleral icterus. Conjunctiva/sclera: Conjunctivae normal. Cardiovascular: Rate and Rhythm: Normal rate and regular rhythm. Pulses: Normal pulses. Heart sounds: Normal heart sounds. Pulmonary: Effort: Pulmonary effort is normal. Breath sounds: Normal breath sounds. No stridor. No wheezing or rales. Musculoskeletal: General: Tenderness present. No deformity or signs of injury. Cervical back: Normal range of motion and neck supple. No tenderness. Right lower leg: No edema. Left lower leg: No edema. Comments: Mild tenderness to PIP joints bilaterally No other joint tenderness or deformity Lymphadenopathy: Cervical: No cervical adenopathy. Skin: General: Skin is warm and dry. Findings: No rash. Comments: No malar rash No nail pitting No psoriatic rash Stable hair thinning in scalp, no patchy hair loss Neurological: General: No focal deficit present. Mental Status: She is alert. Mental status is at baseline. Psychiatric: Mood and Affect: Mood normal. Behavior: Behavior normal. Thought Content: Thought content normal. Judgment: Judgment normal. SLEDAI-2K (based upon status of descriptor at the time of visit or in the preceding 30 days) Medical Decision Making: Medical Decision Making Level: 1 - N/A documented in this encounter [facility] 10-02-2022 Nurse Note Arrived in phase II via cart. Left lateral position. Sedated, but responds to verbal stimuli. Color normal; skin warm and dry. Respirations wnl and unlabored. Abdomen soft and with + bowel sounds in quads X 4. Patient resting comfortably. Alyx Sesay RN documented in this encounter [facility] 10-02-2022 History and physical note UPDATED PROCEDURAL SEDATION HISTORY AND PHYSICAL EXAMINATION SERVICE DATE: 10/02/2022 SERVICE TIME: 10:45 PHYSICAL EXAM MUST BE COMPLETED ON ADMISSION PROCEDURE: colonoscopy, possible biopsies Procedure Indications: screening for colon cancer The History and Physical (completed in the past 30 days) has been reviewed and the patient has been examined. The contents accurately reflect the patient's condition with the following additions or revisions since the H&P was completed. ASA Class: ASA Class:: Patient with mild systemic disease Examination indicates no changes. AIRWAY: Airway Visualization of Uvula: Yes Mouth opening greater than 2 fingerbreadths: Yes Neck Full Range of Motion: Yes LUNGS: Lungs clear to auscultation CARDIAC: Regular rhythm,Regular rate Provisional Diagnosis/Treatment Plan: colonoscopy, possible biopsies SEDATION GOAL: Moderate This H&P can be found in the Electronic Medical Record. SIGNATURE: Marla Perea MD PATIENT NAME: Elvia Fragoso DATE: October 02, 2022 TIME: 10:58 AM Source Note - Marla Perea MD - 10/02/2022 10:30 AM EST HISTORY AND PHYSICAL Elvia Fragoso 1975 REFERRING PHYSICIAN: Arden Muhammad MD CHIEF COMPLAINT: Consult (colonoscopy) HPI: The patient is a 47 year old female referred for endoscopy. Elvia notes no colon complaints. Patient denies any change in bowel habits, weight changes, blood in stools, black tarry stools or abdominal pain. Denies family history of colon issues. The patient notes no upper GI complaints. Elvia has not undergone prior colonoscopy. Patient's past medical history is significant for GERD controlled on medication, post-op nausea and vomiting, elevated BETHANY, right bundle branch block. She follows with Dr. Muhammad in primary care for her chronic medical conditions, recent notes, reviewed. Patient denies chest pain, shortness of breath or recent hospitalizations. PAST MEDICAL HISTORY PAST MEDICAL HISTORY Diagnosis Date Abnormal glandular Papanicolaou smear of cervix Abn. 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 desvenlafaxine ER (PRISTIQ) 100 mg 24 hr tablet Take 1 tablet by mouth once daily. pantoprazole DR (PROTONIX) 40 mg tablet Take 1 tablet by mouth once daily. BIOTIN, BULK, MISC once daily. calcium carbonate (CALCIUM 600 ORAL) Take by mouth once daily. mv-min/iron/folic/calcium/vitK (WOMEN'S MULTIVITAMIN ORAL) Take by mouth. No current facility-administered medications for this visit. ALLERGIES: Doxycycline, Influenza A (H1n1) Vac 09 (Pf), Influenza Virus Vaccines, Penicillins, and Sulfa (Sulfonamide Antibiotics) PERSONAL HISTORY: SOCIAL HISTORY Social History Tobacco Use Smoking status: Former Packs/day: 0.50 Years: 12.00 Pack years: 6.00 Types: Cigarettes Quit date: 12/06/2007 Years since quittin.7 Smokeless tobacco: Never Vaping Use Vaping Use: Never used Substance Use Topics Alcohol use: Not Currently Comment: Rarely Drug use: No FAMILY HISTORY: FAMILY HISTORY FAMILY HISTORY Problem Relation Age of Onset No Known Problems Mother Heart Father Aortic Stenosis COPD Father Thyroid Father No Known Problems Brother Heart Maternal Grandmother aortic stenosis Heart Paternal Grandmother Coronary Artery Disease Paternal Uncle [place] REVIEW OF SYMPTOMS: The review of systems data was entered by the nurse and reviewed by nm Nursing Notes: Lacy Becker RN 09/11/2022 8:52 AM Signed REVIEW OF SYSTEMS: General: The patient NOTES fatigue, denies weight loss, denies weight gain, NOTES feeling hot, and NOTES feelings of cold. Eyes: The patient denies glaucoma, denies eye injury/surgery, wears glasses or contacts. Ear/Nose/Throat: The patient NOTES allergies, denies hayfever, denies ear infections, and denies bloody noses. Cardiovascular: The patient denies chest pain, denies heart disease, denies high blood pressure,denies cardiac stent, denies prior heart attack, denies irregular heart beat, denies high cholesterol, denies poor circulation, denies heart failure, other cardiac issues, denies claudication, NOTES cold feet, denies peripheral arterial stent. Respiratory: The patient denies tuberculosis, denies pneumonia, denies frequent cough, denies pulmonary embolism, denies shortness of breath, and denies coughing up blood. Gastrointestinal: The patient denies difficulty swallowing, NOTES acid reflux, denies ulcers, denies vomiting, denies jaundice/hepatitis, denies gallbladder problems, denies black or tarry stools, denies hemorrhoids, denies bleeding from rectum, denies diverticulitis, denies constipation, denies diarrhea, denies loss of stool control, and denies hernias. Kidney/Bladder: The patient denies kidney stones, denies urine infections, and denies bloody urine. Skin: The patient denies a history of skin cancer, denies bleeding/changing moles, and denies a history of skin rash. Neurologic: The patient denies a history of epilepsy/convulsions, NOTES headaches, denies head/spinal injuries, and denies stroke/TIA. Psychiatric: The patient NOTES psychiatric medications, NOTES depression, and denies voices, denies substance abuse. Endocrine: The patient denies thyroid disorders, denies diabetes, and denies hormonal problems. Hematologic: The patient denies a history of bruising, denies bleeding, and denies anemia, denies blood clots. Infections: The patient denies a history of measles and mumps, denies rheumatic fever, and denies sexually transmitted diseases. Musculoskeletal: The patient denies back pain/injury, denies back problems, denies sciatica, denies knee/foot trouble, NOTES arthritis, or denies gout. When was patient's last Mammogram screening? 02/27/22 Last Colonoscopy: none Lacy Becker RN I have confirmed and edited as necessary, the PFSH and ROS obtained by others. Maxine Brown PA-C PHYSICAL EXAMINATION: General: The patient is 47 year old female, well nourished, well hydrated in no acute distress. The patient is oriented to time, place, and person. VITALS: Blood pressure 120/78, pulse 94, temperature 37.1 C (98.7 F), height 170.2 cm (5' 7 ), weight 85.5 kg (188 lb 6.4 oz), last menstrual period 03/24/2020, SpO2 99 %. Body mass index is 29.51 kg/m . HEENT: Normal cephalic, ataumatic, pupils are equally round, sclera are anicteric, mucous membranes are moist, oropharynx is clear. Neck has no masses, asymmetry or lymphadenopathy. Respiratory: Clear to auscultation and percussion. Normal respiratory excursion and pattern. Cardiac: Examination is regular rate and rhythm. Normal S1/S2 Abdominal exam: Soft, nontender, with no palpable masses. No hepatosplenomegaly. No palpable hernias. Extremities: no clubbing, cyanosis or edema. No adenopathy. LABORATORY VALUES: As Noted RADIOLOGIC STUDIES: As Noted Assessment IMPRESSION: encounter for screening colonoscopy PLAN: I have reviewed my findings with the surgeon. Will plan for lower endoscopy. We discussed the risks and benefits of the planned endoscopy. I have informed the patient that complications can occur including failure to complete the endoscopy and perforation. The patient had the opportunity to ask questions concerning the planned endoscopy. My staff has also explained the procedure to the patient in understandable terms and has given the patient printed material concerning the procedure. The patient freely consents to surgery. The patient was offered a surgery/procedure at a [facility] facility. I have counseled the patient regarding the risk of exposure to and/or potential harm posed by the COVID-19 virus with having a surgery/procedure at this time versus the risk of delaying the surgery/procedure. It is not possible to know either the risk of delaying the surgery or procedure or chance of getting an infection with perfect accuracy, but a joint decision was made between the patient and myself to proceed at this time with endoscopy. I plan to use Golytely bowel preparation I have explained to the patient the difference between IV conscious sedation and MAC anesthesia - and I have offered either, according to the patient's wishes. I have explained that with IV conscious sedation there is no anesthesia provider available and therefore there is a limitation of the amount of IV medications that can be given and that the patient may wake up in the middle of the procedure and/or experience pain/discomfort during the procedure. Further discussion was done and the patient was given the opportunity to ask questions and all questions were answered. The patient chooses IV conscious sedation Diagnoses: (Z12.11) Screening for colon cancer Consultation requested by Dr. Muhammad for an opinion regarding screening colonoscopy. My final recommendations will be communicated back to the requesting physician by way of shared Medical record or letter to requesting physician via US mail. Maxine Brown PA-C HISTORY AND PHYSICAL Elvia Persaud Scale 1975 REFERRING PHYSICIAN: Arden Muhammad MD CHIEF COMPLAINT: Consult (colonoscopy) HPI: The patient is a 47 year old female referred for endoscopy. Elvia notes no colon complaints. Patient denies any change in bowel habits, weight changes, blood in stools, black tarry stools or abdominal pain. Denies family history of colon issues. The patient notes no upper GI complaints. Elvia has not undergone prior colonoscopy. Patient's past medical history is significant for GERD controlled on medication, post-op nausea and vomiting, elevated BETHANY, right bundle branch block. She follows with Dr. Muhammad in primary care for her chronic medical conditions, recent notes, reviewed. Patient denies chest pain, shortness of breath or recent hospitalizations. PAST MEDICAL HISTORY PAST MEDICAL HISTORY Diagnosis Date Abnormal glandular Papanicolaou smear of cervix Abn. 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 desvenlafaxine ER (PRISTIQ) 100 mg 24 hr tablet Take 1 tablet by mouth once daily. pantoprazole DR (PROTONIX) 40 mg tablet Take 1 tablet by mouth once daily. BIOTIN, BULK, MISC once daily. calcium carbonate (CALCIUM 600 ORAL) Take by mouth once daily. mv-min/iron/folic/calcium/vitK (WOMEN'S MULTIVITAMIN ORAL) Take by mouth. No current facility-administered medications for this visit. ALLERGIES: Doxycycline, Influenza A (H1n1) Vac 09 (Pf), Influenza Virus Vaccines, Penicillins, and Sulfa (Sulfonamide Antibiotics) PERSONAL HISTORY: SOCIAL HISTORY Social History Tobacco Use Smoking status: Former Packs/day: 0.50 Years: 12.00 Pack years: 6.00 Types: Cigarettes Quit date: 12/06/2007 Years since quittin.7 Smokeless tobacco: Never Vaping Use Vaping Use: Never used Substance Use Topics Alcohol use: Not Currently Comment: Rarely Drug use: No FAMILY HISTORY: FAMILY HISTORY FAMILY HISTORY Problem Relation Age of Onset No Known Problems Mother Heart Father Aortic Stenosis COPD Father Thyroid Father No Known Problems Brother Heart Maternal Grandmother aortic stenosis Heart Paternal Grandmother Coronary Artery Disease Paternal Uncle [place] REVIEW OF SYMPTOMS: The review of systems data was entered by the nurse and reviewed by nm Nursing Notes: Lacy Becker RN 09/11/2022 8:52 AM Signed REVIEW OF SYSTEMS: General: The patient NOTES fatigue, denies weight loss, denies weight gain, NOTES feeling hot, and NOTES feelings of cold. Eyes: The patient denies glaucoma, denies eye injury/surgery, wears glasses or contacts. Ear/Nose/Throat: The patient NOTES allergies, denies hayfever, denies ear infections, and denies bloody noses. Cardiovascular: The patient denies chest pain, denies heart disease, denies high blood pressure,denies cardiac stent, denies prior heart attack, denies irregular heart beat, denies high cholesterol, denies poor circulation, denies heart failure, other cardiac issues, denies claudication, NOTES cold feet, denies peripheral arterial stent. Respiratory: The patient denies tuberculosis, denies pneumonia, denies frequent cough, denies pulmonary embolism, denies shortness of breath, and denies coughing up blood. Gastrointestinal: The patient denies difficulty swallowing, NOTES acid reflux, denies ulcers, denies vomiting, denies jaundice/hepatitis, denies gallbladder problems, denies black or tarry stools, denies hemorrhoids, denies bleeding from rectum, denies diverticulitis, denies constipation, denies diarrhea, denies loss of stool control, and denies hernias. Kidney/Bladder: The patient denies kidney stones, denies urine infections, and denies bloody urine. Skin: The patient denies a history of skin cancer, denies bleeding/changing moles, and denies a history of skin rash. Neurologic: The patient denies a history of epilepsy/convulsions, NOTES headaches, denies head/spinal injuries, and denies stroke/TIA. Psychiatric: The patient NOTES psychiatric medications, NOTES depression, and denies voices, denies substance abuse. Endocrine: The patient denies thyroid disorders, denies diabetes, and denies hormonal problems. Hematologic: The patient denies a history of bruising, denies bleeding, and denies anemia, denies blood clots. Infections: The patient denies a history of measles and mumps, denies rheumatic fever, and denies sexually transmitted diseases. Musculoskeletal: The patient denies back pain/injury, denies back problems, denies sciatica, denies knee/foot trouble, NOTES arthritis, or denies gout. When was patient's last Mammogram screening? 02/27/22 Last Colonoscopy: none Lacy Becker RN I have confirmed and edited as necessary, the PFSH and ROS obtained by others. Maxine Brown PA-C PHYSICAL EXAMINATION: General: The patient is 47 year old female, well nourished, well hydrated in no acute distress. The patient is oriented to time, place, and person. VITALS: Blood pressure 120/78, pulse 94, temperature 37.1 C (98.7 F), height 170.2 cm (5' 7 ), weight 85.5 kg (188 lb 6.4 oz), last menstrual period 03/24/2020, SpO2 99 %. Body mass index is 29.51 kg/m . HEENT: Normal cephalic, ataumatic, pupils are equally round, sclera are anicteric, mucous membranes are moist, oropharynx is clear. Neck has no masses, asymmetry or lymphadenopathy. Respiratory: Clear to auscultation and percussion. Normal respiratory excursion and pattern. Cardiac: Examination is regular rate and rhythm. Normal S1/S2 Abdominal exam: Soft, nontender, with no palpable masses. No hepatosplenomegaly. No palpable hernias. Extremities: no clubbing, cyanosis or edema. No adenopathy. LABORATORY VALUES: As Noted RADIOLOGIC STUDIES: As Noted Assessment IMPRESSION: encounter for screening colonoscopy PLAN: I have reviewed my findings with the surgeon. Will plan for lower endoscopy. We discussed the risks and benefits of the planned endoscopy. I have informed the patient that complications can occur including failure to complete the endoscopy and perforation. The patient had the opportunity to ask questions concerning the planned endoscopy. My staff has also explained the procedure to the patient in understandable terms and has given the patient printed material concerning the procedure. The patient freely consents to surgery. The patient was offered a surgery/procedure at a [facility] facility. I have counseled the patient regarding the risk of exposure to and/or potential harm posed by the COVID-19 virus with having a surgery/procedure at this time versus the risk of delaying the surgery/procedure. It is not possible to know either the risk of delaying the surgery or procedure or chance of getting an infection with perfect accuracy, but a joint decision was made between the patient and myself to proceed at this time with endoscopy. I plan to use Golytely bowel preparation I have explained to the patient the difference between IV conscious sedation and MAC anesthesia - and I have offered either, according to the patient's wishes. I have explained that with IV conscious sedation there is no anesthesia provider available and therefore there is a limitation of the amount of IV medications that can be given and that the patient may wake up in the middle of the procedure and/or experience pain/discomfort during the procedure. Further discussion was done and the patient was given the opportunity to ask questions and all questions were answered. The patient chooses IV conscious sedation Diagnoses: (Z12.11) Screening for colon cancer Consultation requested by Dr. Muhammad for an opinion regarding screening colonoscopy. My final recommendations will be communicated back to the requesting physician by way of shared Medical record or letter to requesting physician via [place] mail. Maxine Brown PA-C documented in this encounter [facility] 09-11-2022 History of Present illness Narrative HISTORY AND PHYSICAL Elvia Fragoso 1975 REFERRING PHYSICIAN: Arden Muhammad MD CHIEF COMPLAINT: Consult (colonoscopy) HPI: The patient is a 47 year old female referred for endoscopy. Elvia notes no colon complaints. Patient denies any change in bowel habits, weight changes, blood in stools, black tarry stools or abdominal pain. Denies family history of colon issues. The patient notes no upper GI complaints. Elvia has not undergone prior colonoscopy. Patient's past medical history is significant for GERD controlled on medication, post-op nausea and vomiting, elevated BETHANY, right bundle branch block. She follows with Dr. Muhammad in primary care for her chronic medical conditions, recent notes, reviewed. Patient denies chest pain, shortness of breath or recent hospitalizations. PAST MEDICAL HISTORY Diagnosis Date Abnormal glandular Papanicolaou smear of cervix Abn. 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 desvenlafaxine ER (PRISTIQ) 100 mg 24 hr tablet Take 1 tablet by mouth once daily. pantoprazole DR (PROTONIX) 40 mg tablet Take 1 tablet by mouth once daily. BIOTIN, BULK, MISC once daily. calcium carbonate (CALCIUM 600 ORAL) Take by mouth once daily. mv-min/iron/folic/calcium/vitK (WOMEN'S MULTIVITAMIN ORAL) Take by mouth. No current facility-administered medications for this visit. ALLERGIES: Doxycycline, Influenza A (H1n1) Vac 09 (Pf), Influenza Virus Vaccines, Penicillins, and Sulfa (Sulfonamide Antibiotics) PERSONAL HISTORY: Social History Tobacco Use Smoking status: Former Packs/day: 0.50 Years: 12.00 Pack years: 6.00 Types: Cigarettes Quit date: 12/06/2007 Years since quittin.7 Smokeless tobacco: Never Vaping Use Vaping Use: Never used Substance Use Topics Alcohol use: Not Currently Comment: Rarely Drug use: No FAMILY HISTORY: FAMILY HISTORY Problem Relation Age of Onset No Known Problems Mother Heart Father Aortic Stenosis COPD Father Thyroid Father No Known Problems Brother Heart Maternal Grandmother aortic stenosis Heart Paternal Grandmother Coronary Artery Disease Paternal Uncle [place] REVIEW OF SYMPTOMS: The review of systems data was entered by the nurse and reviewed by nm Nursing Notes: Lacy Becker RN 09/11/2022 8:52 AM Signed REVIEW OF SYSTEMS: General: The patient NOTES fatigue, denies weight loss, denies weight gain, NOTES feeling hot, and NOTES feelings of cold. Eyes: The patient denies glaucoma, denies eye injury/surgery, wears glasses or contacts. Ear/Nose/Throat: The patient NOTES allergies, denies hayfever, denies ear infections, and denies bloody noses. Cardiovascular: The patient denies chest pain, denies heart disease, denies high blood pressure,denies cardiac stent, denies prior heart attack, denies irregular heart beat, denies high cholesterol, denies poor circulation, denies heart failure, other cardiac issues, denies claudication, NOTES cold feet, denies peripheral arterial stent. Respiratory: The patient denies tuberculosis, denies pneumonia, denies frequent cough, denies pulmonary embolism, denies shortness of breath, and denies coughing up blood. Gastrointestinal: The patient denies difficulty swallowing, NOTES acid reflux, denies ulcers, denies vomiting, denies jaundice/hepatitis, denies gallbladder problems, denies black or tarry stools, denies hemorrhoids, denies bleeding from rectum, denies diverticulitis, denies constipation, denies diarrhea, denies loss of stool control, and denies hernias. Kidney/Bladder: The patient denies kidney stones, denies urine infections, and denies bloody urine. Skin: The patient denies a history of skin cancer, denies bleeding/changing moles, and denies a history of skin rash. Neurologic: The patient denies a history of epilepsy/convulsions, NOTES headaches, denies head/spinal injuries, and denies stroke/TIA. Psychiatric: The patient NOTES psychiatric medications, NOTES depression, and denies voices, denies substance abuse. Endocrine: The patient denies thyroid disorders, denies diabetes, and denies hormonal problems. Hematologic: The patient denies a history of bruising, denies bleeding, and denies anemia, denies blood clots. Infections: The patient denies a history of measles and mumps, denies rheumatic fever, and denies sexually transmitted diseases. Musculoskeletal: The patient denies back pain/injury, denies back problems, denies sciatica, denies knee/foot trouble, NOTES arthritis, or denies gout. When was patient's last Mammogram screening? 02/27/22 Last Colonoscopy: none Lacy Becker RN I have confirmed and edited as necessary, the PFSH and ROS obtained by others. Maxine Brown PA-C PHYSICAL EXAMINATION: General: The patient is 47 year old female, well nourished, well hydrated in no acute distress. The patient is oriented to time, place, and person. VITALS: Blood pressure 120/78, pulse 94, temperature 37.1 C (98.7 F), height 170.2 cm (5' 7 ), weight 85.5 kg (188 lb 6.4 oz), last menstrual period 03/24/2020, SpO2 99 %. Body mass index is 29.51 kg/m . HEENT: Normal cephalic, ataumatic, pupils are equally round, sclera are anicteric, mucous membranes are moist, oropharynx is clear. Neck has no masses, asymmetry or lymphadenopathy. Respiratory: Clear to auscultation and percussion. Normal respiratory excursion and pattern. Cardiac: Examination is regular rate and rhythm. Normal S1/S2 Abdominal exam: Soft, nontender, with no palpable masses. No hepatosplenomegaly. No palpable hernias. Extremities: no clubbing, cyanosis or edema. No adenopathy. LABORATORY VALUES: As Noted RADIOLOGIC STUDIES: As Noted Assessment IMPRESSION: encounter for screening colonoscopy PLAN: I have reviewed my findings with the surgeon. Will plan for lower endoscopy. We discussed the risks and benefits of the planned endoscopy. I have informed the patient that complications can occur including failure to complete the endoscopy and perforation. The patient had the opportunity to ask questions concerning the planned endoscopy. My staff has also explained the procedure to the patient in understandable terms and has given the patient printed material concerning the procedure. The patient freely consents to surgery. The patient was offered a surgery/procedure at a [facility] facility. I have counseled the patient regarding the risk of exposure to and/or potential harm posed by the COVID-19 virus with having a surgery/procedure at this time versus the risk of delaying the surgery/procedure. It is not possible to know either the risk of delaying the surgery or procedure or chance of getting an infection with perfect accuracy, but a joint decision was made between the patient and myself to proceed at this time with endoscopy. I plan to use Golytely bowel preparation I have explained to the patient the difference between IV conscious sedation and MAC anesthesia - and I have offered either, according to the patient's wishes. I have explained that with IV conscious sedation there is no anesthesia provider available and therefore there is a limitation of the amount of IV medications that can be given and that the patient may wake up in the middle of the procedure and/or experience pain/discomfort during the procedure. Further discussion was done and the patient was given the opportunity to ask questions and all questions were answered. The patient chooses IV conscious sedation Diagnoses: (Z12.11) Screening for colon cancer Consultation requested by Dr. Muhammad for an opinion regarding screening colonoscopy. My final recommendations will be communicated back to the requesting physician by way of shared Medical record or letter to requesting physician via US mail. Maxine Brown PA-C documented in this encounter [facility] 09-11-2022 Nurse Note REVIEW OF SYSTEMS: General: The patient NOTES fatigue, denies weight loss, denies weight gain, NOTES feeling hot, and NOTES feelings of cold. Eyes: The patient denies glaucoma, denies eye injury/surgery, wears glasses or contacts. Ear/Nose/Throat: The patient NOTES allergies, denies hayfever, denies ear infections, and denies bloody noses. Cardiovascular: The patient denies chest pain, denies heart disease, denies high blood pressure,denies cardiac stent, denies prior heart attack, denies irregular heart beat, denies high cholesterol, denies poor circulation, denies heart failure, other cardiac issues, denies claudication, NOTES cold feet, denies peripheral arterial stent. Respiratory: The patient denies tuberculosis, denies pneumonia, denies frequent cough, denies pulmonary embolism, denies shortness of breath, and denies coughing up blood. Gastrointestinal: The patient denies difficulty swallowing, NOTES acid reflux, denies ulcers, denies vomiting, denies jaundice/hepatitis, denies gallbladder problems, denies black or tarry stools, denies hemorrhoids, denies bleeding from rectum, denies diverticulitis, denies constipation, denies diarrhea, denies loss of stool control, and denies hernias. Kidney/Bladder: The patient denies kidney stones, denies urine infections, and denies bloody urine. Skin: The patient denies a history of skin cancer, denies bleeding/changing moles, and denies a history of skin rash. Neurologic: The patient denies a history of epilepsy/convulsions, NOTES headaches, denies head/spinal injuries, and denies stroke/TIA. Psychiatric: The patient NOTES psychiatric medications, NOTES depression, and denies voices, denies substance abuse. Endocrine: The patient denies thyroid disorders, denies diabetes, and denies hormonal problems. Hematologic: The patient denies a history of bruising, denies bleeding, and denies anemia, denies blood clots. Infections: The patient denies a history of measles and mumps, denies rheumatic fever, and denies sexually transmitted diseases. Musculoskeletal: The patient denies back pain/injury, denies back problems, denies sciatica, denies knee/foot trouble, NOTES arthritis, or denies gout. When was patient's last Mammogram screening? 02/27/22 Last Colonoscopy: none Lacy Becker RN documented in this encounter [facility] 08-28-2022 Miscellaneous Notes Contacted patient and appointment made with General Surgery. Yuli Amaya Pss Please set up patient for saw Dr Muhammad for virtual visit: Needs referral for general surgery documented in this encounter [facility] 08-27-2022 Miscellaneous Notes Spoke to patient who is aware provider will be working from home and appointment flipped to virtual Karmen Au Ma Patient stated that she was returning a call that came from the office of Dr. Muhammad concerning her appointment for tomorrow, 08/28/22. There was no documentation of a message that was to be relayed to the patient. Please advise. documented in this encounter [facility] 08-03-2022 Miscellaneous Notes The following approved medication requests have been transmitted electronically. Requested Prescriptions Signed Prescriptions Disp Refills hydrOXYchloroQUINE (PLAQUENIL) 200 mg tablet 180 tablet 0 Sig: Take 1 tablet by mouth twice daily. Authorizing Provider: BREN BACH PA-C Pharmacy would like her to get a 90 day supply so she can get the optimal use out of her insurance. documented in this encounter [facility] 07-27-2022 Miscellaneous Notes Received patient's eye exam. Will give to provider for review. No Plaquenil toxicity, ok to continue Plaquenil. Most recent Rheumatology visit: 06/17/2022 (with Bren Bach) [employer] message sent, we will need a current eye exam report, base line exam as I think she is a new start. Recent Office Visits - This Specialty 06/17/2022 Polyarthralgia Rheumatology Bren Bach PA-C Upcoming Rheumatology Appointments - Next 365 Days Visit Type Date Time Department [facility] 10/21/2022 10:30 AM [facility] Last Ophthalmology Check for Plaquenil (Hydroxychloroquine) Last OCT Macula Exam No resulted procedures found. Last Visual Field Exam No resulted procedures found. CBC: CBC Latest Ref Rng & Units 04/07/2022 05/18/2022 WBC 3.70 - 11.00 k/uL 3.55(L) 3.19(L) HEMOGLOBIN 11.5 - 15.5 g/dL 12.8 13.3 HEMOGLOBIN, DARYA 11.5 - 15.5 g/dL - - HEMATOCRIT 36.0 - 46.0 % 39.3 41.7 PLATELETS 150 - 400 k/uL 292 300 ABS NEUT (ANC) 1.45 - 7.50 k/uL 2.22 1.81 ABS NEUT, DARYA 1.45 - 7.50 k/uL - - ABS LYMP, DARYA 1.00 - 4.00 k/uL - - ABS LYMPH 1.00 - 4.00 k/uL 0.93(L) 1.10 Vitamin D: None on file in the last 6 months LFT: CMP Latest Ref Rng & Units 01/23/2021 02/27/2022 SODIUM 136 - 144 mmol/L 140 138 SODIUM, DARYA 136 - 145 mmol/L - - SODIUM, DARYA 136 - 145 mmol/L - - POTASSIUM 3.7 - 5.1 mmol/L 3.8 3.8 POTASSIUM, DARYA 3.5 - 5.1 mmol/L - - CHLORIDE 97 - 105 mmol/L 102 102 CHLORIDE, DARYA 98 - 107 mmol/L - - CO2 22 - 30 mmol/L 28 25 CO2, DARYA 21.0 - 32.0 mmol/L - - GLUCOSE 74 - 99 mg/dL 112(H) 103(H) GLUCOSE, DARYA 70 - 99 mg/dL - - BUN 7 - 21 mg/dL 12 8 BUN, DARYA 7 - 18 mg/dL - - CREATININE 0.58 - 0.96 mg/dL 0.87 0.75 CREATININE, DARYA 0.6 - 1.0 mg/dL - - CALCIUM, DARYA 8.5 - 10.1 mg/dL - - CALCIUM, TOTAL 8.5 - 10.2 mg/dL 9.2 8.9 AST 13 - 35 U/L 18 19 ALT 7 - 38 U/L 16 19 ALT, DARYA 30 - 65 U/L - - ALKALINE PHOSPHATASE 34 - 123 U/L 59 59 Creatinine: Creatinine Latest Ref Rng & Units 01/23/2021 02/27/2022 CREAT 0.58 - 0.96 mg/dL 0.87 0.75 ESR/CRP: ESR, WSR Latest Ref Rng & Units 06/17/2022 WSR 0 - 20 mm/hr 8 CRP Latest Ref Rng & Units 06/17/2022 CRP <0.9 mg/dL <0.3 Uric Acid: None on file in the last 6 months Open Standing (Multiple Instance) Lab Orders None Open Future (Single Instance) Lab Orders None documented in this encounter [facility] 07-27-2022 Miscellaneous Notes Normal eye exam dated 06/25/22, no plaquenil toxicity documented in this encounter [facility] 06-17-2022 History of Present illness Narrative Images from the original note were not included. Rheumatology CONSULTATION Referring Provider: Arden Muhammad Date of Service: 06/17/2022 Gender: female Ethnicity: White Age: [age] year old Chief Complaint: New Patient Last Rheumatology visit: None at [facility] Elvia Fragoso is a 46 year old White female who presents on 06/17/2022 for in person visit for evaluation of New Patient. She is currently taking meloxicam. Her most recent BETHANY was positive (06/08/2022). HISTORY OF PRESENT ILLNESS She is here with her She has chronic fatigue for years. Her joint pain has been longstanding as well. She is so fatigued that she feels like she might fall asleep on the drive, or that She admits wrist pain with pressure like pushing off a chair. She states her knees also have always given her trouble. She gets pain in her elbows, like when holding a book. Flexion aggravates her elbow pain. Straightening them She has CMC arthritis bilaterally. L>R. She also has pain in the rest of her fingers. The X-Rays look OK. She admits plantar fasciitis in the left side. This improved with new shoes. Joint pain included: Bilateral PIP joints, CMC, elbows, knees, hips. Ankles sometimes feel tired and her big toes also cause occasional sharp pain. Admits difficutly gripping items in the evening. Admits difficulty opening her water bottle in the morning. AM stiffness: hands are the worst - lasts about 1 hour. She also has pain in her knees and feet. She also has stiffness after Joint swelling: in knees, hands (has difficulty with rings getting them on or off). Sometimes in ankles after being on her feet. She does admit her fingers get cold, and turn purple, also have turned white, then bright red when they warm up. She has tried meloxicam with partial benefit but not complete resolution of her symptoms - upsets her Stomach with GERD She did have tetanus vaccine and she had weeks of pain afterwards. She did take medrol dose pack after the Tetanus vaccine. She admits she felt better on the prednisone. RHEUMATOLOGIC REVIEW OF SYSTEMS: + ulcers in mouth or nose along gum line, admits some pain with brushing her teeth. Look like red inflamed sore, last typically 5 days. - sensitive gums No photosensenitivity - admits she tries to avoid significant sun, and feels fatigued after being in the sun. 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 Family History: No known family history of SLE, Crohns, UC, PsO. Dad had RA, thyroid issues P niece has Graves, and another with Celiac Smoking: No ETOH use: none Drug use: No Disease History See HPI Patient-Entered Data RAPID 3 Seo Activities of Daily Living 06/12/2022 7:19 PM Dress self? With SOME difficulty Get in and out of bed? Without ANY difficulty Walk outdoors? Without ANY difficulty Wash and dry body? With SOME difficulty Get in and out of car? Without ANY difficulty RAPID 3 Disease Activity Weighed Score Levels: 0 - 1: Near Remission 1.3 - 2.0: Low Severity 2.3 - 4.0: Moderate Severity 4.3 - 10.0: High Severity RAPID-3 Weighed Score 06/12/2022 RAPID 3 Weighed Score 5.11 (High Severity (HS)) PROMIS Assessments PROMIS Global Health - (T-Scores - the mean of general population = 50. Five points is a clinically meaningful difference.) 10/09/2021 02/13/2022 06/12/2022 Physical T-Score 44.9 44.9 34.9 Mental T-Score 50.8 50.8 41.1 PROMIS CAT Pain Interference 06/12/2022 PROMIS Pain Interference T-Score (range: 10 - 90) 68 (moderate) PROMIS Pain Interference Percentile 4 % PROMIS CAT Fatigue 06/12/2022 PROMIS Fatigue T-Score 74 (severe) PROMIS Fatigue Percentile 1 % PROMIS PHYSICAL FUNCTION T-SCORE 06/12/2022 PROMIS Physical Function T-Score 41 (mild dysfunction) Physical Function Percentile 18 % PAIN EVALUATION 06/17/2022 1037 Pain Level: 3 Pain Location: -- hands elbows wrists -could go to other areas in the day Description: Aching Intervention/Comfort measure: Heat Comments: braces Treatment History Relevant Previous Investigations CBC Latest Ref Rng & Units 03/06/2022 04/07/2022 04/07/2022 05/18/2022 WBC 3.70 - 11.00 k/uL 3.21(L) 3.57(L) 3.55(L) 3.19(L) HEMOGLOBIN 11.5 - 15.5 g/dL 13.4 12.8 12.8 13.3 HEMOGLOBIN, DARYA 11.5 - 15.5 g/dL - - - - HEMATOCRIT 36.0 - 46.0 % 41.4 39.8 39.3 41.7 PLATELETS 150 - 400 k/uL 292 294 292 300 ABS NEUT (ANC) 1.45 - 7.50 k/uL 1.85 2.25 2.22 1.81 ABS NEUT, DARYA 1.45 - 7.50 k/uL - - - - ABS LYMP, DARYA 1.00 - 4.00 k/uL - - - - ABS LYMPH 1.00 - 4.00 k/uL 0.97(L) 0.96(L) 0.93(L) 1.10 CMP Latest Ref Rng & Units 06/05/2017 07/21/2019 01/23/2021 02/27/2022 SODIUM 136 - 144 mmol/L 140 141 140 138 SODIUM, DARYA 136 - 145 mmol/L - - - - SODIUM, DARYA 136 - 145 mmol/L - - - - POTASSIUM 3.7 - 5.1 mmol/L 4.2 4.3 3.8 3.8 POTASSIUM, DARYA 3.5 - 5.1 mmol/L - - - - CHLORIDE 97 - 105 mmol/L 101 101 102 102 CHLORIDE, DARYA 98 - 107 mmol/L - - - - CO2 22 - 30 mmol/L 26 29 28 25 CO2, DARYA 21.0 - 32.0 mmol/L - - - - GLUCOSE 74 - 99 mg/dL 78 97 112(H) 103(H) GLUCOSE, DARYA 70 - 99 mg/dL - - - - BUN 7 - 21 mg/dL 12 12 12 8 BUN, DARYA 7 - 18 mg/dL - - - - CREATININE 0.58 - 0.96 mg/dL 0.93 0.77 0.87 0.75 CREATININE, DARYA 0.6 - 1.0 mg/dL - - - - CALCIUM, DARYA 8.5 - 10.1 mg/dL - - - - CALCIUM, TOTAL 8.5 - 10.2 mg/dL 9.5 9.3 9.2 8.9 AST 13 - 35 U/L 23 - 18 19 ALT 7 - 38 U/L 21 - 16 19 ALT, DARYA 30 - 65 U/L - - - - ALKALINE PHOSPHATASE 34 - 123 U/L 50 - 59 59 Hepatitis Screen Latest Ref Rng & Units 06/08/2022 HEPBCOTOL Negative Negative HEPSABQ Negative Negative HEPCABEIA Negative Negative HBSAG Negative Negative Antibodies Latest Ref Rng & Units 06/08/2022 BETHANY Negative Positive(A) BETHANY TITER - 1:160 BETHANY PATTERN - Polar/Golgi-like Urinalysis Latest Ref Rng & Units 03/18/2014 06/14/2015 PROTEIN, URINE Neg mg/dL neg neg Imaging / Studies Last XR Hand/Finger - Impression Only XR HAND GENERAL 3V PA/LAT/OBL BILATERAL Exam End: 11/17/2021 12:51 PM (Final result) Impression: IMPRESSION: Negative 3 views of the bilateral hands. Coating Line Worker: STEPHENIE Transcribe Date/Time: Nov 18 2021 1:23P Dictated by : XI RAMOS MD ... Last MRI Hand - Impression Only No resulted procedures found. Last XR Chest - Impression Only No resulted procedures found. Last XR Cervical Spine - Impression Only No resulted procedures found. Review of Systems Review of Systems CONSTITUTION: Negative for: Fever and Recent weight change HEENT: Positive for: Mouth sores and Dry mouth Negative for: Nosebleeds and Trouble swallowing RESPIRATORY: Negative for: Cough, Shortness of breath and Pain with breathing GASTROINTESTINAL: Positive for: Diarrhea, Heartburn and Abdominal pain Negative for: Melena MUSCULOSKELETAL: Positive for: Arthralgias, Myalgias, Muscle weakness, Joint swelling and Morning Joint Stiffness NEUROLOGICAL: Positive for: Headaches and Memory loss Negative for: Numbness SKIN: Positive for: Skin changes and Hair loss Negative for: Rash and Nail changes EYES: Positive for: Eye dryness and Visual disturbance Negative for: Eye pain and Eye redness CARDIOVASCULAR: Negative for: Chest pain and Leg swelling GENITOURINARY: Negative for: Dysuria and Hematuria HEMATOLOGIC/LYMPHATIC: Negative for: Swollen glandsAll other reviewed and negative other than HPI. Problem List ACTIVE PROBLEM LIST Irritable Bowel Syndrome Allergic Rhinitis Headache(784.0) Contact Dermatitis and Other Eczema, Due to Unspecified Cause Left Knee Pain Adjustment Disorder With Mixed Anxiety and Depressed Mood Situational Hypoactive Sexual Desire Disorder TMJ Arthralgia Acute Appendicitis Without Mention of Peritonitis Gerd (Gastroesophageal Reflux Disease) Past Medical History PAST MEDICAL HISTORY Diagnosis Date Abnormal glandular Papanicolaou smear of cervix Abn. 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 TEST ENGINEER DEPT)_*FL October 01, 2009 Mirena LAPAROSCOPIC APPENDECTOMY 06/01/13 early appendicitis OFFICE LEEP 12/2008 GENO 3 PAST SURGICAL HISTORY OF Extraction of wisdom teeth PAST SURGICAL HISTORY OF September 2009 One tooth removed Family History FAMILY HISTORY Problem Relation Age of Onset No Known Problems Mother Heart Father Aortic Stenosis COPD Father Thyroid Father No Known Problems Brother Heart Maternal Grandmother aortic stenosis Heart Paternal Grandmother Coronary Artery Disease Paternal Uncle [place] Social History Social History Tobacco Use Smoking status: Former Packs/day: 0.50 Years: 12.00 Pack years: 6.00 Types: Cigarettes Quit date: 12/06/2007 Years since quittin.5 Smokeless tobacco: Never Vaping Use Vaping Use: Never used Substance Use Topics Alcohol use: Not Currently Comment: Rarely Drug use: No Medications Current Outpatient Medications Medication Sig desvenlafaxine ER (PRISTIQ) 100 mg 24 hr tablet Take 1 tablet by mouth once daily. pantoprazole DR (PROTONIX) 40 mg tablet Take 1 tablet by mouth once daily. BIOTIN, BULK, MISC once daily. calcium carbonate (CALCIUM 600 ORAL) Take by mouth once daily. mv-min/iron/folic/calcium/vitK (WOMEN'S MULTIVITAMIN ORAL) Take by mouth. meloxicam (MOBIC) 15 mg tablet Take 1 tablet by mouth once daily. (Patient taking differently: Take 15 mg by mouth once daily. PRN) No current facility-administered medications for this visit. Physical Exam BP 122/70 Pulse 76 Temp 98.2 Wt 177 lb (80.3kg) LMP 03/24/2020 Physical Exam Constitutional: General: She is not in acute distress. Appearance: Normal appearance. She is not toxic-appearing. HENT: Head: Normocephalic and atraumatic. Mouth/Throat: Mouth: Mucous membranes are moist. Pharynx: No oropharyngeal exudate or posterior oropharyngeal erythema. Eyes: General: No scleral icterus. Conjunctiva/sclera: Conjunctivae normal. Cardiovascular: Rate and Rhythm: Normal rate and regular rhythm. Pulses: Normal pulses. Heart sounds: Normal heart sounds. Pulmonary: Effort: Pulmonary effort is normal. Breath sounds: Normal breath sounds. No stridor. No wheezing or rales. Musculoskeletal: General: Tenderness present. No deformity or signs of injury. Cervical back: Normal range of motion and neck supple. No tenderness. Right lower leg: No edema. Left lower leg: No edema. Comments: Scattered joint tenderness (see joint exam) No obvious synovitis. Some diffuse puffiness to PIP, MCP and MTP joints. Tenderness to L wrist Bilateral elbow tenderness. FROM of bilateral shoulders without tenderness NO GTB tenderness No knee effusion or warmth Lymphadenopathy: Cervical: No cervical adenopathy. Skin: General: Skin is warm and dry. Findings: No rash. Comments: No malar rash No nail pitting No psoriatic rash Some hair thinning in scalp, no patchy hair loss B 1st Toenails abnormal, but c/w trauma Neurological: General: No focal deficit present. Mental Status: She is alert. Mental status is at baseline. Psychiatric: Mood and Affect: Mood normal. Behavior: Behavior normal. Thought Content: Thought content normal. Judgment: Judgment normal. Joint Exam 06/17/2022 Right Left Elbow Tender Tender MCP 1 Tender Tender MCP 3 Tender PIP 3 Tender Tender PIP 4 Tender Tender PIP 5 Tender Tender Subtalar Tender Tender MTP 2 Tender Tender MTP 3 Tender Tender MTP 4 Tender Tender MTP 5 Tender Tender Impression Diagnoses: (M25.50) Polyarthralgia (primary encounter diagnosis) (R76.8) Elevated antinuclear antibody (BETHANY) level (I73.00) Raynaud's disease without gangrene (D72.810) Lymphopenia (K13.79) Mouth sores (L65.9) Hair loss (H04.123) Dry eyes Hepatitis B Antibody test: Negative (06/08/2022) Hepatitis B Antibody test: Negative (06/08/2022) Plan No follow-ups on file. Consultation requested by Dr. Arden Muhammad for an opinion regarding polyarthralgia and Positive BETHANY and my final recommendations will be communicated back to the requesting physician by way of shared medical record or letter by US mail. I spent a total of 60 minutes on the date of the service which included preparing to see the patient, [id number] patient care, completing clinical documentation, obtaining and/or reviewing separately obtained history, performing a medically appropriate examination, counseling and educating the patient/family/caregiver, and ordering medications, tests, or procedures. Bren Bach PA-C cc: PCP: Arden Muhammad [address] [place] [address] Medical Decision Making: Medical Decision Making Level: 1 - N/A documented in this encounter [facility] 06-12-2022 Miscellaneous Notes TC to pt, notified of provider response. Call transferred to scheduling for appt. Jose D Stoddard LPN Dr. Mcmanus let me know about your labs, I have place a rheumatology referral. We will go ahead and get it set up. documented in this encounter [facility] 06-08-2022 History of Present illness Narrative Patient referred by Dr. Muhammad for leukopenia. The impression and plan will be communicated by way of the shared electronic record or faxed under separate cover letter. HPI: The patient is a 46-year-old female with a past medical history significant for irritable bowel syndrome, GERD, allergic rhinitis, contact dermatitis and headache. Arthritis bases of both thumbs. Chronic pain of knees, hips and elbows. Also proximal PCPs. Fatigued. PAST MEDICAL HISTORY Diagnosis Date Abnormal glandular Papanicolaou smear of cervix Abn. Pap smear (cervix) GERD (gastroesophageal reflux disease) PONV (postoperative nausea and vomiting) Right bundle branch block 09/08/2018 PAST SURGICAL HISTORY Procedure Laterality Date ESOPHAGOGASTRODUODENOSCOPY TRANSORAL DIAGNOSTIC 02/27/2015 EGD HSG December 26, 2009 Left Tube Patent, Essure Coils in Right Tube HSG 01/09/10 Repeat Essure - Left Tube HYSTEROSCOPY BI TUBE OCCLUSION W/PERM IMPLNTS October 01, 2009 Essure Sterilization IUD REMOVAL (STRUCTURAL TEST ENGINEER DEPT)_*FL October 01, 2009 Mirena LAPAROSCOPIC APPENDECTOMY 06/01/13 early appendicitis OFFICE LEEP 12/2008 GENO 3 PAST SURGICAL HISTORY OF Extraction of wisdom teeth PAST SURGICAL HISTORY OF September 2009 One tooth removed ALLERGIES Allergen Reactions Doxycycline Hives Influenza A (H1n1) * Hives rash Influenza Virus Vac* Hives Penicillins Hives Sulfa (Sulfonamide * Hives, Shortness of Breath Current Outpatient Medications Medication Sig desvenlafaxine ER (PRISTIQ) 100 mg 24 hr tablet Take 1 tablet by mouth once daily. pantoprazole DR (PROTONIX) 40 mg tablet Take 1 tablet by mouth once daily. meloxicam (MOBIC) 15 mg tablet Take 1 tablet by mouth once daily. (Patient taking differently: Take 15 mg by mouth once daily. PRN) BIOTIN, BULK, MISC once daily. calcium carbonate (CALCIUM 600 ORAL) Take by mouth once daily. mv-min/iron/folic/calcium/vitK (WOMEN'S MULTIVITAMIN ORAL) Take by mouth. cyclobenzaprine (FLEXERIL) 10 mg tablet Take 1 tablet by mouth three times daily as needed for muscle spasm. (Patient not taking: Reported on 06/08/2022) traZODone (DESYREL) 50 mg tablet Take 1 tablet by mouth daily at bedtime. prn (Patient not taking: Reported on 06/08/2022) No current facility-administered medications for this visit. Social History Tobacco Use Smoking status: Former Packs/day: 0.50 Years: 12.00 Pack years: 6.00 Types: Cigarettes Quit date: 12/06/2007 Years since quittin.5 Smokeless tobacco: Never Vaping Use Vaping Use: Never used Substance Use Topics Alcohol use: Not Currently Comment: Rarely Drug use: No Family history: Father--. Alcoholism. ROS: Constitutional: Denies episodes of fever and night sweats. Normal appetite. Neuro: Frequent HAs. Occasional dizziness. No imbalance. Denies symptoms of neuropathy. HEENT: No recent change in voice, vision or hearing. Resp: Denies cough, wheeze and hemoptysis. Denies shortness of breath at rest. Denies MARIEE. CVS: Denies exertional chest pain, PND, orthopnea and LE edema. GI: Denies dysgeusia. Denies symptoms of stomatitis. Denies dysphagia and odynophagia. Denies reflux, n/v, change in bowel habits and abdominal pain. : Denies dysuria or gross hematuria. Endo: Denies hot flashes. Denies polyuria and polydipsia. Denies heat and cold intolerance. Musculoskeletal: See above. Derm: Denies rash. Denies jaundice and diffuse pruritis. Heme: Denies unusual bleeding and unexplained bruising. Psych: Normal mood. PHYSICAL EXAM: Vitals: Blood pressure 116/81, pulse 81, temperature 36.8 C (98.2 F), height 168 cm (5' 6.14 ), weight 81.2 kg (179 lb), last menstrual period 03/24/2020, SpO2 98 %. Well-appearing and in no acute distress. EYES: Sclerae are anicteric bilaterally. ENT: Oral mucosa is unremarkable. There is no sign of thrush or mucositis. LYMPHATIC: There is no palpable cervical, supraclavicular or axillary adenopathy. RESPIRATORY: Inspiratory breath sounds are of normal intensity in all hall. No rales, wheezes or rhonchi. Expiratory phase is normal. CARDIOVASCULAR: Rhythm is regular. ABDOMEN: The abdomen is nondistended. No organomegaly. No tenderness. Extremities: No swelling or edema. SKIN: No jaundice or rash. No petechiae. NEUROLOGIC: academic guidance specialist II-XII are grossly intact. No focal motor weakness. MUSCULOSKELETAL: No swelling or tenderness of the PIPs bilaterally. LABS: Component Latest Ref Rng & Units 07/25/2019 01/23/2021 02/06/2021 02/27/2022 03/06/2022 04/07/2022 05/18/2022 WBC 3.70 - 11.00 k/uL 5.62 3.43 (L) 4.45 2.92 (L) 3.21 (L) 3.57 (L) 3.19 (L) RBC 3.90 - 5.20 m/uL 4.60 4.31 4.71 4.55 4.53 4.33 4.49 Hemoglobin 11.5 - 15.5 g/dL 13.1 12.8 13.8 13.8 13.4 12.8 13.3 Hematocrit 36.0 - 46.0 % 41.7 39.1 42.4 40.9 41.4 39.8 41.7 MCV 80.0 - 100.0 fL 90.7 90.7 90.0 89.9 91.4 91.9 92.9 MCH 26.0 - 34.0 pg 28.5 29.7 29.3 30.3 29.6 29.6 29.6 MCHC 30.5 - 36.0 g/dL 31.4 32.7 32.5 33.7 32.4 32.2 31.9 RDW-CV 11.5 - 15.0 % 12.8 12.9 13.1 12.7 12.9 12.9 13.1 Platelet Count 150 - 400 k/uL 339 313 332 308 292 294 300 MPV 9.0 - 12.7 fL 10.0 10.3 10.1 9.0 9.7 9.7 10.1 Neut% % 61.7 56.5 55.6 56.8 57.7 63.0 56.7 Abs Neut (ANC) 1.45 - 7.50 k/uL 3.45 1.93 2.46 1.66 1.85 2.25 1.81 Lymph% % 26.7 30.0 31.0 33.6 30.2 26.9 34.5 Abs Lymph 1.00 - 4.00 k/uL 1.50 1.03 1.38 0.98 (L) 0.97 (L) 0.96 (L) 1.10 Avery% % 7.5 7.9 9.0 8.9 11.8 10.1 8.2 Abs Avery <0.87 k/uL 0.42 0.27 0.40 0.26 0.38 0.36 0.26 Eosin% % 3.2 4.4 3.1 0.0 0.0 0.0 0.0 Abs Eosin <0.46 k/uL 0.18 0.15 0.14 <0.03 <0.03 <0.03 <0.03 Baso% % 0.9 1.2 1.3 0.0 0.0 0.0 0.0 Abs Baso <0.11 k/uL 0.05 0.04 0.06 <0.03 <0.03 <0.03 <0.03 Immature Gran % % 0.7 0.3 0.0 0.6 IMMATURE GRANS (ABS) <0.10 k/uL <0.03 <0.03 <0.03 <0.03 NRBC /100 WBC 0.0 0.0 0.0 0.0 Absolute nRBC <0.01 k/uL <0.01 <0.01 <0.01 <0.01 <0.01 <0.01 <0.01 DTYPE Auto Auto Auto Auto Nucleated Reds 0 /100 WBC 0.0 0.0 0.0 Diff Type Auto Diff Auto Diff Auto Diff ASSESSMENT/PLAN: (D72.810) Lymphopenia Assessment: -The patient is a 46-year-old female with an unremarkable past medical history who is evaluated today for intermittent mild leukopenia/lymphopenia. She has no symptoms or physical exam findings to suggest chronic bacterial or mycobacterial infection. She has chronic symmetric joint aches and pains suggestive of a possible evolving rheumatologic disorder. I discussed with her and her [id number] today the broad differential of mild lymphopenia. Most recent CBC however showed resolution of this with lymphocytes in the low normal range. Recommended checking a few basic labs. I do not see any need for extensive work-up. Answered all of her and her [id number]'s questions to their satisfaction. Plan: -Check BETHANY, hepatitis panel, HIV and zinc. -Check ferritin due to joint pain of the hands. -Patient will be contacted with results when available. I spent a total of 40 minutes on the date of the service which included preparing to see the patient, [id number] patient care, completing clinical documentation, obtaining and/or reviewing separately obtained history, performing a medically appropriate examination, counseling and educating the patient/family/caregiver, ordering medications, tests, or procedures, and communicating results to the patient/family/caregiver. Yon Mcmanus DO documented in this encounter [facility] 05-22-2022 Miscellaneous Notes Spoke with patient and scheduled. Aleyda Jimenez Dicussed with Dr. Mcmanus. Will set up referral with hematology for labs. documented in this encounter [facility] 04-23-2022 Miscellaneous Notes Order faxed to [facility] at patients request. Mary Kate Goldberg documented in this encounter [facility] 04-23-2022 Miscellaneous Notes Called patient on 04/23/22 AT 9:23 AM to schedule their MSK US exam. PT did not want to schedule an appointment as we did not have a location closer to the PT. Visit Type: ANY MSK Visit Length: 45, 50 OR 60 MINUTES Order Name/Protocol: US EXTREMITY MASS/FLUID COLLECTION LT; EVAL LT UPPER ARM AT SITE OF TDAP INJ FOR POSSIBLE INFECTION/HEMATOMA. Preferred Provider: N/A Comment: N/A Location: ANY FACILITY Slot held: N/A documented in this encounter [facility] 04-22-2022 History of Present illness Narrative Chief Complaint Patient presents with: Telemedicine Patient was offered a virtual/telemedicine appointment in lieu of an office visit due to recommendations to reduce patient exposure to COVID-19. Video was used for evaluation of this patient. Patient is aware of limitations of performing the visit without a face to face visit in the office setting and agrees. Patient agrees to the visit: Yes Patient Location: [facility] Elvia Fragoso is a 46 year old female who is contacted today for a virtual visit This is an established patient of Dr. Arden Muhammad MD Reports: Pt presents today with complaint of arm pain. Refers that it continues to be incredibly pain. Refers that she had no pain prior to tetanus shot. She had the normal shot pain afterwards. Refers that the pain is there all the time. Refers that during the day, when it was warmer, aches all the time. When it is cooler, more pain. Aches all the time and then gets shooting pain. No fevers/chills. Pain is worse at night. Tender to push on the location of the injection. Refers that it bruised initially. Nothing now. No redness, swelling, increased warmth. No n/t. Feels like muscle is tearing. ROM is limited. Has tried heat. Cold makes it worse. She will try to rub the area. Past medical history, appointments, medications, allergies reviewed 04/22/2022 Previous Medical History PAST MEDICAL HISTORY Diagnosis Date Abnormal glandular Papanicolaou smear of cervix Abn. 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)_*FL October 01, 2009 Mirena LAPAROSCOPIC APPENDECTOMY 06/01/13 early appendicitis OFFICE LEEP 12/2008 GEON 3 PAST SURGICAL HISTORY OF Extraction of wisdom teeth PAST SURGICAL HISTORY OF September 2009 One tooth removed Family History FAMILY HISTORY Problem Relation Age of Onset Heart Father Aortic Stenosis COPD Father Heart Maternal Grandmother aortic stenosis Coronary Artery Disease Paternal Uncle [place] Patient Allergies ALLERGIES Allergen Reactions Doxycycline Hives Influenza A (H1n1) * Hives rash Influenza Virus Vac* Hives Penicillins Hives Sulfa (Sulfonamide * Hives, Shortness of Breath Current Medications Current Outpatient Medications on File Prior to Visit Medication Sig pantoprazole DR (PROTONIX) 40 mg tablet Take 1 tablet by mouth once daily. meloxicam (MOBIC) 15 mg tablet Take 1 tablet by mouth once daily. traZODone (DESYREL) 50 mg tablet Take 1 tablet by mouth daily at bedtime. prn desvenlafaxine ER (PRISTIQ) 100 mg 24 hr tablet Take 1 tablet by mouth once daily. BIOTIN, BULK, MISC calcium carbonate (CALCIUM 600 ORAL) Take by mouth. mv-min/iron/folic/calcium/vitK (WOMEN'S MULTIVITAMIN ORAL) Take by mouth. No current facility-administered medications on file prior to visit. Social History Social History Tobacco Use Smoking status: Former Packs/day: 0.50 Years: 12.00 Pack years: 6.00 Types: Cigarettes Quit date: 12/06/2007 Years since quittin.3 Smokeless tobacco: Never Vaping Use Vaping Use: Never used Substance Use Topics Alcohol use: Not Currently Comment: Rarely Drug use: No EXAM: LMP 03/24/2020 Limited exam as visit was completed over the virtual platform. Virtual visit completed using video, limited exam completed. Patient sounds or appears ill: No General Appearance: Well appearing, alert, in no acute distress, well-hydrated, well nourished. Skin: Skin color normal Head: Normocephalic. No facial swelling or redness. EENT: Eyes nonreddened. No discharge. External ears nonreddened and no swelling. Neck: No mass or lesions. No swelling. FROM Patient is unable to speak in complete sentences: No Patient has labored breathing: No. Patient is audibly coughing: No Psych: Attitude - cooperative, easily engaged in conversation Affect - Euthymic, normal mood Mental status: Alert. Speech is clear and fluent with good repetition, comprehension Appearance - Normal hygiene and grooming appropriate Coordination: No abnormal or extraneous movements. Gait/Stance: Posture is normal. Ext - some discomfort with adduction and extension of the left arm. Health Maintenance List HEPATITIS B(1 of 3 - 3-dose series) Never done COVID-19 VACCINE(1) due on 04/06/2023 DEPRESSION SCREENING due on 02/13/2023 MAMMOGRAM due on 02/27/2023 PAP TESTING due on 02/14/2024 HPV TESTING due on 02/14/2024 DTAP,TDAP,TD(3 - Td or Tdap) due on 04/06/2032 INFLUENZA Discontinued HEPATITIS C SCREENING Discontinued HIV SCREENING Discontinued Data reviewed Last 5 Encounter BP Readings: Date: BP: 04/06/2022 114/80 02/20/2022 104/72 10/10/2021 116/72 08/21/2021 124/76 06/13/2021 122/82 BMI Readings from Last 5 Encounters: 04/06/22 : 27.82 kg/m 02/20/22 : 28.19 kg/m 10/10/21 : 29.29 kg/m 08/21/21 : 28.82 kg/m 06/13/21 : 28.98 kg/m Last 5 Encounter Wt Readings: Date: Wt: 04/06/2022 80.6 kg (177 lb 9.6 oz) 02/20/2022 81.6 kg (180 lb) 10/10/2021 84.8 kg (187 lb) 08/21/2021 83.5 kg (184 lb) 06/13/2021 83.9 kg (185 lb) Medication and allergy list reviewed, reconciled and updated 04/22/2022 ASSESSMENT/PLAN: 1. Left arm pain - ICD9: 729.5, ICD10: M79.602 Will go ahead and get ultrasound of the upper arm - r/o hematoma or abscess. Start medrol dose pack. Avoid other nsaids. Flexeril as needed. Can continue tylenol if needed. Continue stretching and heat. - US EXTREMITY MASS/FLUID COLLECTION LT - METHYLPREDNISOLONE 4 MG TABLETS IN A DOSE PACK - CYCLOBENZAPRINE 10 MG TABLET Discussed treatment plan and patient voices understanding. Patient's questions answered appropriately. Medications and potential side effects were discussed and patient voices understanding. Return to the office as scheduled or as needed for worsening/no improvement. Kendra Shetty APRN.[employer] STITCHER This note was partially generated using [employer] voice recognition system. Note was reviewed for accuracy. There may be minor misspellings or grammar miscues with [employer] voice recognition. documented in this encounter [facility] 04-08-2022 Miscellaneous Notes Patient informed and verbalized understanding. Mary Kate Goldberg White count is stable. Pathology did not review the smear due to looking overall ok. Would recheck it again in six weeks. If stays low then will ask hematology to see it. documented in this encounter [facility] 03-10-2022 Miscellaneous Notes Pt notified. She verbalized understanding. Jose D Stoddard LPN White count is improving. Recheck cbc in one month documented in this encounter [facility] 03-02-2022 Miscellaneous Notes Patient was made aware of the results. Patient verbalizes understanding. Adelita Bucio Ma Cholesterol is higher. Watch cholesterol in the diet. White count is decreased. Recheck cbc in one week documented in this encounter [facility] 02-27-2022 Miscellaneous Notes February 27, 2022 PID: [id number] Elvia Fragoso [address] [place] [address] Dear Ms. Fragoso, We are pleased to inform you that the results of your recent breast imaging exam on 02/27/2022 are normal. Your mammogram demonstrates that you have dense breast tissue, which could hide abnormalities. Dense breast tissue, in and of itself, is a relatively common condition. Therefore, this information is not provided to cause undue concern; rather, it is to raise your awareness and promote discussion with your health care provider regarding the presence of dense breast tissue in addition to other risk factors. Early detection of cancer is very important. We also understand recommendations regarding breast cancer screening are controversial. Please discuss with your primary care provider which strategy is best for you and whether a mammogram is right for you. Your imaging studies and report will be kept on file at [facility] as part of your permanent medical record and are available for your continuing care. Thank you for allowing us to help in meeting your health care needs. Sincerely, Dr. Mcmahon Interpreting Radiologist [facility] (Normal over 40) documented in this encounter [facility] 02-27-2022 History of Present illness Narrative Radiology Service Progress Note PATIENT NAME: Elvia Fragoso DATE OF SERVICE: February 27, 2022 TIME: 7:47 AM PATIENT IDENTITY VERIFICATION COMPLETED USING TWO (2) IDENTIFIERS: Name and Date of confirmed by patient verbally. FALL SCREENING: Has the patient had 2 falls in the last year or 1 fall with injury or currently using an Ambulatory Assistive Device (Walker, Cane, Wheelchair, Crutches, etc.)? No PATIENT GENDER DATA: Female. status: : No status: NO. PATIENT RELEVANT IMPLANT DATA REVIEWED: Not Applicable RADIOLOGY DEPARTMENT: Mammography PERIPHERAL IV DATA: Not applicable SIGNED BY: RT Aaron(R) February 27, 2022 7:47 AM documented in this encounter [facility] 12-29-2021 Miscellaneous Notes anita-- 10/10/21 Last refill 02/02/21 90 with 3 refills Last labs 05/13/21 documented in this encounter [facility] documented as of this encounter (statuses as of 12/30/2021) [facility] History of Past illness Narrative* Problem Noted Date Resolved Date PONV (postoperative nausea and vomiting) 015 07/07/2021 Obesity, Unspecified 02/23/2008 12/26/2013 Neoplasm of uncertain behavior of skin 8 07/07/2021 Tobacco use disorder 11/28/2007 01/09/2009 Sleep disturbance, unspecified 07/21/2007 0 02/23/2008 Adjustment disorder with depressed mood 04/11/20 07 09/15/2010 documented as of this encounter (statuses as of 02/28/2022) [facility] History of Past illness Narrative* Problem Noted Date Resolved Date PONV (postoperative nausea and vomiting) 015 07/07/2021 Obesity, Unspecified 02/23/2008 12/26/2013 Neoplasm of uncertain behavior of skin 8 07/07/2021 Tobacco use disorder 11/28/2007 01/09/2009 Sleep disturbance, unspecified 07/21/2007 0 02/23/2008 Adjustment disorder with depressed mood 04/11/20 07 09/15/2010 documented as of this encounter (statuses as of 03/02/2022) [facility] History of Past illness Narrative* Problem Noted Date Resolved Date PONV (postoperative nausea and vomiting) 015 07/07/2021 Obesity, Unspecified 02/23/2008 12/26/2013 Neoplasm of uncertain behavior of skin 8 07/07/2021 Tobacco use disorder 11/28/2007 01/09/2009 Sleep disturbance, unspecified 07/21/2007 0 02/23/2008 Adjustment disorder with depressed mood 04/11/20 07 09/15/2010 documented as of this encounter (statuses as of 03/03/2022) [facility] History of Past illness Narrative* Problem Noted Date Resolved Date PONV (postoperative nausea and vomiting) 015 07/07/2021 Obesity, Unspecified 02/23/2008 12/26/2013 Neoplasm of uncertain behavior of skin 8 07/07/2021 Tobacco use disorder 11/28/2007 01/09/2009 Sleep disturbance, unspecified 07/21/2007 0 02/23/2008 Adjustment disorder with depressed mood 04/11/20 07 09/15/2010 documented as of this encounter (statuses as of 03/10/2022) [facility] History of Past illness Narrative* Problem Noted Date Resolved Date PONV (postoperative nausea and vomiting) 015 07/07/2021 Obesity, Unspecified 02/23/2008 12/26/2013 Neoplasm of uncertain behavior of skin 8 07/07/2021 Tobacco use disorder 11/28/2007 01/09/2009 Sleep disturbance, unspecified 07/21/2007 0 02/23/2008 Adjustment disorder with depressed mood 04/11/20 07 09/15/2010 documented as of this encounter (statuses as of 04/08/2022) [facility] History of Past illness Narrative* Problem Noted Date Resolved Date PONV (postoperative nausea and vomiting) 015 07/07/2021 Obesity, Unspecified 02/23/2008 12/26/2013 Neoplasm of uncertain behavior of skin 8 07/07/2021 Tobacco use disorder 11/28/2007 01/09/2009 Sleep disturbance, unspecified 07/21/2007 0 02/23/2008 Adjustment disorder with depressed mood 04/11/20 07 09/15/2010 documented as of this encounter (statuses as of 04/22/2022) [facility] History of Past illness Narrative* Problem Noted Date Resolved Date PONV (postoperative nausea and vomiting) 015 07/07/2021 Obesity, Unspecified 02/23/2008 12/26/2013 Neoplasm of uncertain behavior of skin 8 07/07/2021 Tobacco use disorder 11/28/2007 01/09/2009 Sleep disturbance, unspecified 07/21/2007 0 02/23/2008 Adjustment disorder with depressed mood 04/11/20 07 09/15/2010 documented as of this encounter (statuses as of 04/23/2022) [facility] History of Past illness Narrative* Problem Noted Date Resolved Date PONV (postoperative nausea and vomiting) 015 07/07/2021 Obesity, Unspecified 02/23/2008 12/26/2013 Neoplasm of uncertain behavior of skin 8 07/07/2021 Tobacco use disorder 11/28/2007 01/09/2009 Sleep disturbance, unspecified 07/21/2007 0 02/23/2008 Adjustment disorder with depressed mood 04/11/20 07 09/15/2010 documented as of this encounter (statuses as of 04/23/2022) [facility] History of Past illness Narrative* Problem Noted Date Resolved Date PONV (postoperative nausea and vomiting) 015 07/07/2021 Obesity, Unspecified 02/23/2008 12/26/2013 Neoplasm of uncertain behavior of skin 8 07/07/2021 Tobacco use disorder 11/28/2007 01/09/2009 Sleep disturbance, unspecified 07/21/2007 0 02/23/2008 Adjustment disorder with depressed mood 04/11/20 07 09/15/2010 documented as of this encounter (statuses as of 05/22/2022) [facility] History of Past illness Narrative* Problem Noted Date Resolved Date PONV (postoperative nausea and vomiting) 015 07/07/2021 Obesity, Unspecified 02/23/2008 12/26/2013 Neoplasm of uncertain behavior of skin 8 07/07/2021 Tobacco use disorder 11/28/2007 01/09/2009 Sleep disturbance, unspecified 07/21/2007 0 02/23/2008 Adjustment disorder with depressed mood 04/11/20 07 09/15/2010 documented as of this encounter (statuses as of 06/08/2022) [facility] History of Past illness Narrative* Problem Noted Date Resolved Date PONV (postoperative nausea and vomiting) 015 07/07/2021 Obesity, Unspecified 02/23/2008 12/26/2013 Neoplasm of uncertain behavior of skin 8 07/07/2021 Tobacco use disorder 11/28/2007 01/09/2009 Sleep disturbance, unspecified 07/21/2007 0 02/23/2008 Adjustment disorder with depressed mood 04/11/20 07 09/15/2010 documented as of this encounter (statuses as of 06/11/2022) [facility] History of Past illness Narrative* Problem Noted Date Resolved Date PONV (postoperative nausea and vomiting) 015 07/07/2021 Obesity, Unspecified 02/23/2008 12/26/2013 Neoplasm of uncertain behavior of skin 8 07/07/2021 Tobacco use disorder 11/28/2007 01/09/2009 Sleep disturbance, unspecified 07/21/2007 0 02/23/2008 Adjustment disorder with depressed mood 04/11/20 07 09/15/2010 documented as of this encounter (statuses as of 06/12/2022) [facility] History of Past illness Narrative* Problem Noted Date Resolved Date PONV (postoperative nausea and vomiting) 015 07/07/2021 Obesity, Unspecified 02/23/2008 12/26/2013 Neoplasm of uncertain behavior of skin 8 07/07/2021 Tobacco use disorder 11/28/2007 01/09/2009 Sleep disturbance, unspecified 07/21/2007 0 02/23/2008 Adjustment disorder with depressed mood 04/11/20 07 09/15/2010 documented as of this encounter (statuses as of 06/17/2022) [facility] History of Past illness Narrative* Problem Noted Date Resolved Date PONV (postoperative nausea and vomiting) 015 07/07/2021 Obesity, Unspecified 02/23/2008 12/26/2013 Neoplasm of uncertain behavior of skin 8 07/07/2021 Tobacco use disorder 11/28/2007 01/09/2009 Sleep disturbance, unspecified 07/21/2007 0 02/23/2008 Adjustment disorder with depressed mood 04/11/20 07 09/15/2010 documented as of this encounter (statuses as of 06/19/2022) [facility] History of Past illness Narrative* Problem Noted Date Resolved Date PONV (postoperative nausea and vomiting) 015 07/07/2021 Obesity, Unspecified 02/23/2008 12/26/2013 Neoplasm of uncertain behavior of skin 8 07/07/2021 Tobacco use disorder 11/28/2007 01/09/2009 Sleep disturbance, unspecified 07/21/2007 0 02/23/2008 Adjustment disorder with depressed mood 04/11/20 07 09/15/2010 documented as of this encounter (statuses as of 07/27/2022) [facility] History of Past illness Narrative* Problem Noted Date Resolved Date PONV (postoperative nausea and vomiting) 015 07/07/2021 Obesity, Unspecified 02/23/2008 12/26/2013 Neoplasm of uncertain behavior of skin 8 07/07/2021 Tobacco use disorder 11/28/2007 01/09/2009 Sleep disturbance, unspecified 07/21/2007 0 02/23/2008 Adjustment disorder with depressed mood 04/11/20 07 09/15/2010 documented as of this encounter (statuses as of 07/28/2022) [facility] History of Past illness Narrative* Problem Noted Date Resolved Date PONV (postoperative nausea and vomiting) 015 07/07/2021 Obesity, Unspecified 02/23/2008 12/26/2013 Neoplasm of uncertain behavior of skin 8 07/07/2021 Tobacco use disorder 11/28/2007 01/09/2009 Sleep disturbance, unspecified 07/21/2007 0 02/23/2008 Adjustment disorder with depressed mood 04/11/20 07 09/15/2010 documented as of this encounter (statuses as of 08/03/2022) [facility] History of Past illness Narrative* Problem Noted Date Resolved Date PONV (postoperative nausea and vomiting) 015 07/07/2021 Acute appendicitis without mention of peritoniti s 06/07/2013 08/28/2022 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 Obesity, Unspecified 02/23/2008 12/26/2013 Neoplasm of uncertain behavior of skin 8 07/07/2021 Tobacco use disorder 11/28/2007 01/09/2009 Sleep disturbance, unspecified 07/21/2007 0 02/23/2008 Adjustment disorder with depressed mood 04/11/20 07 09/15/2010 documented as of this encounter (statuses as of 08/28/2022) [facility] History of Past illness Narrative* Problem Noted Date Resolved Date PONV (postoperative nausea and vomiting) 015 07/07/2021 Acute appendicitis without mention of peritoniti s 06/07/2013 08/28/2022 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 Obesity, Unspecified 02/23/2008 12/26/2013 Neoplasm of uncertain behavior of skin 8 07/07/2021 Tobacco use disorder 11/28/2007 01/09/2009 Sleep disturbance, unspecified 07/21/2007 0 02/23/2008 Adjustment disorder with depressed mood 04/11/20 07 09/15/2010 documented as of this encounter (statuses as of 08/29/2022) [facility] History of Past illness Narrative* Problem Noted Date Resolved Date PONV (postoperative nausea and vomiting) 015 07/07/2021 Acute appendicitis without mention of peritoniti s 06/07/2013 08/28/2022 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 Obesity, Unspecified 02/23/2008 12/26/2013 Neoplasm of uncertain behavior of skin 8 07/07/2021 Tobacco use disorder 11/28/2007 01/09/2009 Sleep disturbance, unspecified 07/21/2007 0 02/23/2008 Adjustment disorder with depressed mood 04/11/20 07 09/15/2010 documented as of this encounter (statuses as of 09/12/2022) [facility] History of Past illness Narrative* Problem Noted Date Resolved Date PONV (postoperative nausea and vomiting) 015 07/07/2021 Acute appendicitis without mention of peritoniti s 06/07/2013 08/28/2022 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 Obesity, Unspecified 02/23/2008 12/26/2013 Neoplasm of uncertain behavior of skin 8 07/07/2021 Tobacco use disorder 11/28/2007 01/09/2009 Sleep disturbance, unspecified 07/21/2007 0 02/23/2008 Adjustment disorder with depressed mood 04/11/20 07 09/15/2010 documented as of this encounter (statuses as of 10/21/2022) [facility] History of Past illness Narrative* Problem Noted Date Resolved Date PONV (postoperative nausea and vomiting) 015 07/07/2021 Acute appendicitis without mention of peritoniti s 06/07/2013 08/28/2022 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 Obesity, Unspecified 02/23/2008 12/26/2013 Neoplasm of uncertain behavior of skin 8 07/07/2021 Tobacco use disorder 11/28/2007 01/09/2009 Sleep disturbance, unspecified 07/21/2007 0 02/23/2008 Adjustment disorder with depressed mood 04/11/20 07 09/15/2010 documented as of this encounter (statuses as of 12/21/2022) [facility] History of Past illness Narrative* Problem Noted Date Resolved Date PONV (postoperative nausea and vomiting) 015 07/07/2021 Acute appendicitis without mention of peritoniti s 06/07/2013 08/28/2022 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 Obesity, Unspecified 02/23/2008 12/26/2013 Neoplasm of uncertain behavior of skin 8 07/07/2021 Tobacco use disorder 11/28/2007 01/09/2009 Sleep disturbance, unspecified 07/21/2007 0 02/23/2008 Adjustment disorder with depressed mood 04/11/20 07 09/15/2010 documented as of this encounter (statuses as of 01/19/2023) [facility] History of Past illness Narrative* Problem Noted Date Resolved Date PONV (postoperative nausea and vomiting) 015 07/07/2021 Acute appendicitis without mention of peritoniti s 06/07/2013 08/28/2022 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 Obesity, Unspecified 02/23/2008 12/26/2013 Neoplasm of uncertain behavior of skin 8 07/07/2021 Tobacco use disorder 11/28/2007 01/09/2009 Sleep disturbance, unspecified 07/21/2007 0 02/23/2008 Adjustment disorder with depressed mood 04/11/20 07 09/15/2010 documented as of this encounter (statuses as of 02/09/2023) [facility] History of Past illness Narrative* Problem Noted Date Diagnosed Date Resolved Date PONV (postoperative nausea and vomiting) 02/19/2015 07/07/2021 Acute appendicitis without m ention of peritonitis 06/07/2013 08/28/2022 Situational hypoactive sexual desire disorder 09/15/19 11 08/28/2022 Obesity, Unspecified 02/23/2008 014 Neoplasm of uncertain behavior of skin 11/28/2007 07/07/2021 Tobacco use disorder 11/28/2007 009 Sleep disturbance, unspecified 07/21/2007 02/23/2008 Adjustment disorder with depressed mood 04/11/2007 09/15/2010 documented as of this encounter (statuses as of 04/19/2023) [facility] History of Past illness Narrative* Problem Noted Date Diagnosed Date Resolved Date PONV (postoperative nausea and vomiting) 02/19/2015 07/07/2021 Acute appendicitis without m ention of peritonitis 06/07/2013 08/28/2022 Situational hypoactive sexual desire disorder 09/15/19 11 08/28/2022 Obesity, Unspecified 02/23/2008 014 Neoplasm of uncertain behavior of skin 11/28/2007 07/07/2021 Tobacco use disorder 11/28/2007 009 Sleep disturbance, unspecified 07/21/2007 02/23/2008 Adjustment disorder with depressed mood 04/11/2007 09/15/2010 documented as of this encounter (statuses as of 04/19/2023) [facility] History of Past illness Narrative* Problem Noted Date Diagnosed Date Resolved Date PONV (postoperative nausea and vomiting) 02/19/2015 07/07/2021 Acute appendicitis without m ention of peritonitis 06/07/2013 08/28/2022 Situational hypoactive sexual desire disorder 09/15/19 11 08/28/2022 Obesity, Unspecified 02/23/2008 014 Neoplasm of uncertain behavior of skin 11/28/2007 07/07/2021 Tobacco use disorder 11/28/2007 009 Sleep disturbance, unspecified 07/21/2007 02/23/2008 Adjustment disorder with depressed mood 04/11/2007 09/15/2010 documented as of this encounter (statuses as of 04/29/2023) [facility] History of Past illness Narrative* Problem Noted Date Diagnosed Date Resolved Date PONV (postoperative nausea and vomiting) 02/19/2015 07/07/2021 Acute appendicitis without m ention of peritonitis 06/07/2013 08/28/2022 Situational hypoactive sexual desire disorder 09/15/19 11 08/28/2022 Obesity, Unspecified 02/23/2008 014 Neoplasm of uncertain behavior of skin 11/28/2007 07/07/2021 Tobacco use disorder 11/28/2007 009 Sleep disturbance, unspecified 07/21/2007 02/23/2008 Adjustment disorder with depressed mood 04/11/2007 09/15/2010 documented as of this encounter (statuses as of 05/29/2023) [facility] History of Past illness Narrative* Problem Noted Date Diagnosed Date Resolved Date PONV (postoperative nausea and vomiting) 02/19/2015 07/07/2021 Acute appendicitis without m ention of peritonitis 06/07/2013 08/28/2022 Situational hypoactive sexual desire disorder 09/15/19 11 08/28/2022 Obesity, Unspecified 02/23/2008 014 Neoplasm of uncertain behavior of skin 11/28/2007 07/07/2021 Tobacco use disorder 11/28/2007 009 Sleep disturbance, unspecified 07/21/2007 02/23/2008 Adjustment disorder with depressed mood 04/11/2007 09/15/2010 documented as of this encounter (statuses as of 06/22/2023) [facility] History of Past illness Narrative* Problem Noted Date Diagnosed Date Resolved Date PONV (postoperative nausea and vomiting) 02/19/2015 07/07/2021 Acute appendicitis without m ention of peritonitis 06/07/2013 08/28/2022 Situational hypoactive sexual desire disorder 09/15/19 11 08/28/2022 Obesity, Unspecified 02/23/2008 014 Neoplasm of uncertain behavior of skin 11/28/2007 07/07/2021 Tobacco use disorder 11/28/2007 009 Sleep disturbance, unspecified 07/21/2007 02/23/2008 Adjustment disorder with depressed mood 04/11/2007 09/15/2010 documented as of this encounter (statuses as of 06/22/2023) [facility] History of Past illness Narrative* Problem Noted Date Diagnosed Date Resolved Date PONV (postoperative nausea and vomiting) 02/19/2015 07/07/2021 Acute appendicitis without m ention of peritonitis 06/07/2013 08/28/2022 Situational hypoactive sexual desire disorder 09/15/19 11 08/28/2022 Obesity, Unspecified 02/23/2008 014 Neoplasm of uncertain behavior of skin 11/28/2007 07/07/2021 Tobacco use disorder 11/28/2007 009 Sleep disturbance, unspecified 07/21/2007 02/23/2008 Adjustment disorder with depressed mood 04/11/2007 09/15/2010 documented as of this encounter (statuses as of 06/22/2023) [facility] History of Past illness Narrative* Problem Noted Date Diagnosed Date Resolved Date PONV (postoperative nausea and vomiting) 02/19/2015 07/07/2021 Acute appendicitis without m ention of peritonitis 06/07/2013 08/28/2022 Situational hypoactive sexual desire disorder 09/15/19 11 08/28/2022 Obesity, Unspecified 02/23/2008 014 Neoplasm of uncertain behavior of skin 11/28/2007 07/07/2021 Tobacco use disorder 11/28/2007 009 Sleep disturbance, unspecified 07/21/2007 02/23/2008 Adjustment disorder with depressed mood 04/11/2007 09/15/2010 documented as of this encounter (statuses as of 06/22/2023) [facility] History of Past illness Narrative* Problem Noted Date Diagnosed Date Resolved Date PONV (postoperative nausea and vomiting) 02/19/2015 07/07/2021 Acute appendicitis without m ention of peritonitis 06/07/2013 08/28/2022 Situational hypoactive sexual desire disorder 09/15/19 11 08/28/2022 Obesity, Unspecified 02/23/2008 014 Neoplasm of uncertain behavior of skin 11/28/2007 07/07/2021 Tobacco use disorder 11/28/2007 009 Sleep disturbance, unspecified 07/21/2007 02/23/2008 Adjustment disorder with depressed mood 04/11/2007 09/15/2010 documented as of this encounter (statuses as of 07/02/2023) [facility] History of Past illness Narrative* Problem Noted Date Diagnosed Date Resolved Date PONV (postoperative nausea and vomiting) 02/19/2015 07/07/2021 Acute appendicitis without m ention of peritonitis 06/07/2013 08/28/2022 Situational hypoactive sexual desire disorder 09/15/19 11 08/28/2022 Obesity, Unspecified 02/23/2008 014 Neoplasm of uncertain behavior of skin 11/28/2007 07/07/2021 Tobacco use disorder 11/28/2007 009 Sleep disturbance, unspecified 07/21/2007 02/23/2008 Adjustment disorder with depressed mood 04/11/2007 09/15/2010 documented as of this encounter (statuses as of 07/05/2023) [facility] History of Past illness Narrative* Problem Noted Date Diagnosed Date Resolved Date PONV (postoperative nausea and vomiting) 02/19/2015 07/07/2021 Acute appendicitis without m ention of peritonitis 06/07/2013 08/28/2022 Situational hypoactive sexual desire disorder 09/15/19 11 08/28/2022 Obesity, Unspecified 02/23/2008 014 Neoplasm of uncertain behavior of skin 11/28/2007 07/07/2021 Tobacco use disorder 11/28/2007 009 Sleep disturbance, unspecified 07/21/2007 02/23/2008 Adjustment disorder with depressed mood 04/11/2007 09/15/2010 documented as of this encounter (statuses as of 07/07/2023) [facility] History of Past illness Narrative* Problem Noted Date Diagnosed Date Resolved Date PONV (postoperative nausea and vomiting) 02/19/2015 07/07/2021 Acute appendicitis without m ention of peritonitis 06/07/2013 08/28/2022 Situational hypoactive sexual desire disorder 09/15/19 11 08/28/2022 Obesity, Unspecified 02/23/2008 014 Neoplasm of uncertain behavior of skin 11/28/2007 07/07/2021 Tobacco use disorder 11/28/2007 009 Sleep disturbance, unspecified 07/21/2007 02/23/2008 Adjustment disorder with depressed mood 04/11/2007 09/15/2010 documented as of this encounter (statuses as of 07/11/2023) [facility] History of Past illness Narrative* Problem Noted Date Diagnosed Date Resolved Date PONV (postoperative nausea and vomiting) 02/19/2015 07/07/2021 Acute appendicitis without m ention of peritonitis 06/07/2013 08/28/2022 Situational hypoactive sexual desire disorder 09/15/19 11 08/28/2022 Obesity, Unspecified 02/23/2008 014 Neoplasm of uncertain behavior of skin 11/28/2007 07/07/2021 Tobacco use disorder 11/28/2007 009 Sleep disturbance, unspecified 07/21/2007 02/23/2008 Adjustment disorder with depressed mood 04/11/2007 09/15/2010 documented as of this encounter (statuses as of 07/11/2023) [facility] History of Past illness Narrative* Problem Noted Date Diagnosed Date Resolved Date PONV (postoperative nausea and vomiting) 02/19/2015 07/07/2021 Acute appendicitis without m ention of peritonitis 06/07/2013 08/28/2022 Situational hypoactive sexual desire disorder 09/15/19 11 08/28/2022 Obesity, Unspecified 02/23/2008 014 Neoplasm of uncertain behavior of skin 11/28/2007 07/07/2021 Tobacco use disorder 11/28/2007 009 Sleep disturbance, unspecified 07/21/2007 02/23/2008 Adjustment disorder with depressed mood 04/11/2007 09/15/2010 documented as of this encounter (statuses as of 07/11/2023) [facility] History of Past illness Narrative* Problem Noted Date Diagnosed Date Resolved Date PONV (postoperative nausea and vomiting) 02/19/2015 07/07/2021 Acute appendicitis without m ention of peritonitis 06/07/2013 08/28/2022 Situational hypoactive sexual desire disorder 09/15/19 11 08/28/2022 Obesity, Unspecified 02/23/2008 014 Neoplasm of uncertain behavior of skin 11/28/2007 07/07/2021 Tobacco use disorder 11/28/2007 009 Sleep disturbance, unspecified 07/21/2007 02/23/2008 Adjustment disorder with depressed mood 04/11/2007 09/15/2010 documented as of this encounter (statuses as of 07/20/2023) [facility] History of Past illness Narrative* Problem Noted Date Diagnosed Date Resolved Date PONV (postoperative nausea and vomiting) 02/19/2015 07/07/2021 Acute appendicitis without m ention of peritonitis 06/07/2013 08/28/2022 Situational hypoactive sexual desire disorder 09/15/19 11 08/28/2022 Obesity, Unspecified 02/23/2008 014 Neoplasm of uncertain behavior of skin 11/28/2007 07/07/2021 Tobacco use disorder 11/28/2007 009 Sleep disturbance, unspecified 07/21/2007 02/23/2008 Adjustment disorder with depressed mood 04/11/2007 09/15/2010 documented as of this encounter (statuses as of 07/21/2023) [facility] History of Past illness Narrative* Problem Noted Date Diagnosed Date Resolved Date PONV (postoperative nausea and vomiting) 02/19/2015 07/07/2021 Acute appendicitis without m ention of peritonitis 06/07/2013 08/28/2022 Situational hypoactive sexual desire disorder 09/15/19 11 08/28/2022 Obesity, Unspecified 02/23/2008 014 Neoplasm of uncertain behavior of skin 11/28/2007 07/07/2021 Tobacco use disorder 11/28/2007 009 Sleep disturbance, unspecified 07/21/2007 02/23/2008 Adjustment disorder with depressed mood 04/11/2007 09/15/2010 documented as of this encounter (statuses as of 07/22/2023) [facility] History of Past illness Narrative* Problem Noted Date Diagnosed Date Resolved Date PONV (postoperative nausea and vomiting) 02/19/2015 07/07/2021 Acute appendicitis without m ention of peritonitis 06/07/2013 08/28/2022 Situational hypoactive sexual desire disorder 09/15/19 11 08/28/2022 Obesity, Unspecified 02/23/2008 014 Neoplasm of uncertain behavior of skin 11/28/2007 07/07/2021 Tobacco use disorder 11/28/2007 009 Sleep disturbance, unspecified 07/21/2007 02/23/2008 Adjustment disorder with depressed mood 04/11/2007 09/15/2010 documented as of this encounter (statuses as of 07/28/2023) [facility] History of Past illness Narrative* Problem Noted Date Diagnosed Date Resolved Date PONV (postoperative nausea and vomiting) 02/19/2015 07/07/2021 Acute appendicitis without m ention of peritonitis 06/07/2013 08/28/2022 Situational hypoactive sexual desire disorder 09/15/19 11 08/28/2022 Obesity, Unspecified 02/23/2008 014 Neoplasm of uncertain behavior of skin 11/28/2007 07/07/2021 Tobacco use disorder 11/28/2007 009 Sleep disturbance, unspecified 07/21/2007 02/23/2008 Adjustment disorder with depressed mood 04/11/2007 09/15/2010 documented as of this encounter (statuses as of 08/03/2023) [facility] History of Past illness Narrative* Problem Noted Date Diagnosed Date Resolved Date PONV (postoperative nausea and vomiting) 02/19/2015 07/07/2021 Acute appendicitis without m ention of peritonitis 06/07/2013 08/28/2022 Situational hypoactive sexual desire disorder 09/15/19 11 08/28/2022 Obesity, Unspecified 02/23/2008 014 Neoplasm of uncertain behavior of skin 11/28/2007 07/07/2021 Tobacco use disorder 11/28/2007 009 Sleep disturbance, unspecified 07/21/2007 02/23/2008 Adjustment disorder with depressed mood 04/11/2007 09/15/2010 documented as of this encounter (statuses as of 08/10/2023) [facility] History of Past illness Narrative* Problem Noted Date Diagnosed Date Resolved Date PONV (postoperative nausea and vomiting) 02/19/2015 07/07/2021 Acute appendicitis without m ention of peritonitis 06/07/2013 08/28/2022 Situational hypoactive sexual desire disorder 09/15/19 11 08/28/2022 Obesity, Unspecified 02/23/2008 014 Neoplasm of uncertain behavior of skin 11/28/2007 07/07/2021 Tobacco use disorder 11/28/2007 009 Sleep disturbance, unspecified 07/21/2007 02/23/2008 Adjustment disorder with depressed mood 04/11/2007 09/15/2010 documented as of this encounter (statuses as of 08/18/2023) [facility] History of Past illness Narrative* Problem Noted Date Diagnosed Date Resolved Date PONV (postoperative nausea and vomiting) 02/19/2015 07/07/2021 Acute appendicitis without m ention of peritonitis 06/07/2013 08/28/2022 Situational hypoactive sexual desire disorder 09/15/19 11 08/28/2022 Obesity, Unspecified 02/23/2008 014 Neoplasm of uncertain behavior of skin 11/28/2007 07/07/2021 Tobacco use disorder 11/28/2007 009 Sleep disturbance, unspecified 07/21/2007 02/23/2008 Adjustment disorder with depressed mood 04/11/2007 09/15/2010 documented as of this encounter (statuses as of 08/21/2023) [facility] History of Past illness Narrative* Problem Noted Date Diagnosed Date Resolved Date PONV (postoperative nausea and vomiting) 02/19/2015 07/07/2021 Acute appendicitis without m ention of peritonitis 06/07/2013 08/28/2022 Situational hypoactive sexual desire disorder 09/15/19 11 08/28/2022 Obesity, Unspecified 02/23/2008 014 Neoplasm of uncertain behavior of skin 11/28/2007 07/07/2021 Tobacco use disorder 11/28/2007 009 Sleep disturbance, unspecified 07/21/2007 02/23/2008 Adjustment disorder with depressed mood 04/11/2007 09/15/2010 documented as of this encounter (statuses as of 08/27/2023) [facility] of Past illness Narrative* Problem Noted Date Diagnosed Date Resolved Date PONV (postoperative nausea and vomiting) 02/19/2015 07/07/2021 Acute appendicitis without m ention of peritonitis 06/07/2013 08/28/2022 Situational hypoactive sexual desire disorder 09/15/19 11 08/28/2022 Obesity, Unspecified 02/23/2008 014 Neoplasm of uncertain behavior of skin 11/28/2007 07/07/2021 Tobacco use disorder 11/28/2007 009 Sleep disturbance, unspecified 07/21/2007 02/23/2008 Adjustment disorder with depressed mood 04/11/2007 09/15/2010 documented as of this encounter (statuses as of 08/30/2023) [facility] esophagitis [facility] for malignant neoplasm of breast [facility], unspecified type- [facility] note* Diagnosis Leukopenia, unspecified type- [facility] Diagnosis Left [facility] pain- Primary [facility] Diagnosis Lymphopenia- Primary Lymphocyt[facility] Diagnosis Lymphopenia [facility]ocyt[facility] Diagnosis Polyarthralgia- Primary Pain in joint, multiple sites Elevated antinuclear antibody (BETHANY) level Other and unspecified nonspecific immunological findings documented in this encounter [facility] note* Diagnosis Polyarthralgia- Primary Pain in joint, multiple sites Elevated antinuclear antibody (BETHANY) level Other and unspecified nonspecific immunological findings Raynaud's disease without gangrene Lymphopenia Lymphocytopenia Mouth sores Other and unspecified diseases of the oral soft tissues Hair loss Alopecia, unspecified Dry eyes Tear film insufficiency, unspecified documented in this encounter [facility] note* Diagnosis Raynaud's disease without gangrene- Primary Polyarthralgia Pain in joint, multiple sites documented in this encounter [facility] note* Diagnosis Raynaud's disease without gangrene Polyarthralgia Pain in joint, multiple sites documented in this encounter [facility] note* Diagnosis Screening for colon cancer Special screening for malignant neoplasms, colon documented in this encounter [facility] note* Diagnosis Systemic lupus erythematosus, unspecified SLE type, unspecified organ involvement status (HCC)- Primary Raynaud's disease without gangrene documented in this encounter [facility] note* Diagnosis GERD without esophagitis Esophageal reflux documented in this encounter [facility] note* Diagnosis Systemic lupus erythematosus, unspecified SLE type, unspecified organ involvement status (HCC)- Primary Medication monitoring encounter Encounter for therapeutic drug monitoring documented in this encounter [facility] note* Diagnosis Encounter for screening mammogram for malignant neoplasm of breast- Primary Other screening mammogram documented in this encounter [facility] note* Diagnosis Systemic lupus erythematosus, unspecified SLE type, unspecified organ involvement status (HCC) Raynaud's disease without gangrene documented in this encounter [facility] note* Diagnosis Systemic lupus erythematosus, unspecified SLE type, unspecified organ involvement status (HCC) Raynaud's disease without gangrene documented in this encounter [facility] note* Diagnosis Adjustment disorder with mixed anxiety and depressed mood documented in this encounter [facility] note* Diagnosis Wide-complex tachycardia- Primary Paroxysmal ventricular tachycardia Chest pain, unspecified type documented in this encounter [facility] note* Diagnosis Primary osteoarthritis of first carpometacarpal joint of left hand- Primary Primary localized osteoarthrosis, hand Primary osteoarthritis of first carpometacarpal joint of left hand Primary localized osteoarthrosis, [facility] Diagnosis Pre-operative examination- Primary Preoperative examination, unspecified Adjustment disorder with mixed anxiety and depressed mood Gastroesophageal reflux disease without esophagitis Esophageal reflux Systemic lupus erythematosus, unspecified SLE type, unspecified organ involvement status (HCC) Raynaud's disease without gangrene Bilateral temporomandibular joint pain Arthralgia of temporomandibular joint Palpitations Primary osteoarthritis of first carpometacarpal joint of left hand Primary localized osteoarthrosis, hand [facility] Diagnosis GERD without esophagitis Esophageal reflux Primary osteoarthritis of first carpometacarpal joint of left hand Primary localized osteoarthrosis, hand [facility] Diagnosis Systemic lupus erythematosus, unspecified SLE type, unspecified organ involvement status (HCC)- Primary Medication monitoring encounter Encounter for therapeutic drug monitoring Primary osteoarthritis of first carpometacarpal joint of left hand Primary localized osteoarthrosis, hand [facility] Diagnosis Primary osteoarthritis of first carpometacarpal joint of left hand- Primary Primary localized osteoarthrosis, hand Primary osteoarthritis of first carpometacarpal joint of left hand Primary localized osteoarthrosis, hand [facility] Diagnosis PONV (postoperative nausea and vomiting)- Primary Nausea with vomiting [facility] Diagnosis Encounter for screening mammogram for malignant neoplasm of breast Other screening mammogram [facility] Diagnosis Gastroesophageal reflux disease, unspecified whether esophagitis present- Primary Other irritable bowel syndrome Special screening for malignant neoplasms, colon [facility] Diagnosis Bilateral hand pain Pain in limb [facility] Diagnosis Primary osteoarthritis of first carpometacarpal joint of left hand- Primary Primary localized osteoarthrosis, hand [facility] Diagnosis Primary osteoarthritis of first carpometacarpal joint of left hand Primary localized osteoarthrosis, hand [facility] Diagnosis Primary osteoarthritis of first carpometacarpal joint of left hand- Primary Primary localized osteoarthrosis, hand [facility] Thumb joint stiffness- Primary Primary osteoarthritis of first carpometacarpal joint of left hand Primary localized osteoarthrosis, hand [facility] Diagnosis Primary osteoarthritis of first carpometacarpal joint of left hand- Primary Primary localized osteoarthrosis, hand [facility] Diagnosis Supraventricular tachycardia- Primary Other specified cardiac dysrhythmias Regular wide QRS complex tachycardia Right bundle branch block Palpitations [facility] Diagnosis Primary osteoarthritis of first carpometacarpal joint of left hand- Primary Primary localized osteoarthrosis, hand [facility] Diagnosis Primary osteoarthritis of first carpometacarpal joint of left hand- Primary Primary localized osteoarthrosis, hand documented in this encounter [facility] (narrative)* Diagnostic Procedure Only (Routine) - Closed Specialty Diagnoses / Procedures Referred By João howe Referred To Contact [facility] Diagnoses Encounter for screening mammogram for malignant neoplasm of breast Procedures MERLIN SCREENING W COLLETTE SCREENING DIGITAL BREAST TOMOSYNTHESIS BI SCREENING MAMMOGRAPHY BI 2-VIEW BREAST INC CAD Arden Muhammad MD [address] [place] [address] [facility] [address] [place] [address] Referral ID Status Reason Start Date Expiration Date V isits Requested Visits Authorized [id number] Closed Auto-Generate d Referral 02/20/2022 03/22/2023 1 1 [facility] for referral (narrative)* Diagnostic Procedure Only (Routine) - Pending Review Specialty Diagnoses / Procedures Referred By João howe Referred To Contact [facility] Diagnoses Left arm pain Procedures US EXTREMITY MASS/FLUID COLLECTION Kendra Garcia APRN.[employer] [address] [place] [address] [facility] Referral ID Status Reason Start Date Expiration Date Visits Requested Visits Authorized [id number] Pending Review Auto-Generat ed Referral 04/22/2022 05/22/2023 1 1 [facility] for referral (narrative)* Diagnostic Procedure Only (Routine) - Authorized Specialty Diagnoses / Procedures Referred By João t Referred To Contact [facility] Diagnoses Encounter for screening mammogram for malignant neoplasm of breast Procedures MERLIN SCREENING W COLLETTE SCREENING DIGITAL BREAST TOMOSYNTHESIS BI SCREENING MAMMOGRAPHY BI 2-VIEW BREAST INC CAD Leyda Bowman MD [address] [place] [address] [facility] [address] [place] [address] Referral ID Status Reason Start Date Expiration Date Visits Requested Visits Authorized [id number] Authorized Auto-Generat ed Referral 02/09/2023 03/09/2024 1 1 [facility] for referral (narrative)* Diagnostic Procedure Only (Routine) - Closed Specialty Diagnoses / Procedures Referred By João howe Referred To Contact [facility] Diagnoses Encounter for screening mammogram for malignant neoplasm of breast Procedures MERLIN SCREENING W COLLETTE SCREENING DIGITAL BREAST TOMOSYNTHESIS BI SCREENING MAMMOGRAPHY BI 2-VIEW BREAST INC CAD Ledya Bowman MD [address] [place] [address] [facility] [address] [place] [phone] Referral ID Status Reason Start Date Expiration Date V isits Requested Visits Authorized [id number] Closed Auto-Generate d Referral 02/09/2023 03/09/2024 1 1 [facility] for referral (narrative)* Outpatient Procedure (Routine) - Closed Specialty Diagnoses / Procedures Referred By João howe Referred To Contact [facility] Diagnoses Special screening for malignant neoplasms, colon Procedures COLONOSCOPY SCREENING COLONOSCOPY FLX DX W/COLLJ SPEC WHEN PFRMD Maxine Brown PA-C [address] [place] [address] [facility] [address] [place] [address] Referral ID Status Reason Start Date Expiration Date V isits Requested Visits Authorized [id number] Closed Auto-Generate d Referral 09/11/2022 09/11/2023 1 1 [facility] for referral (narrative)* Diagnostic Procedure Only (Routine) - Closed Specialty Diagnoses / Procedures Referred By Contac t Referred To Contact XR IMAGING Diagnoses Bilateral hand pain Procedures XR HAND GENERAL 3V PA/LAT/OBL BILATERAL RADEX HAND MINIMUM 3 VIEWS Alphonso Marroquin MD [address] [place] [address] [place] [id number] Referral ID Status Reason Start Date Expiration Date V isits Requested Visits Authorized [id number] Closed Auto-Generate d Referral 06/02/2023 07/01/2024 1 1 [facility] for referral (narrative)* Diagnostic Procedure Only (Routine) - Authorized Specialty Diagnoses / Procedures Referred By João t Referred To Contact [facility] IMAGING Diagnoses Primary osteoarthritis of first carpometacarpal joint of left hand Procedures XR HAND GENERAL 3V PA/LAT/OBL LEFT RADEX HAND MINIMUM 3 VIEWS Alphonso Marroquin MD [address] [place] [address] [place] [id number] Referral ID Status Reason Start Date Expiration Date Visits Requested Visits Authorized [id number] Authorized Auto-Generat ed Referral 3 08/20/2024 1 1 [facility] for visit Narrative* Diagnostic Procedure Only (Routine) - Closed Specialty Diagnoses / Procedures Referred By Contac t Referred To Contact [facility] Diagnoses Encounter for screening mammogram for malignant neoplasm of breast Procedures MERLIN SCREENING W COLLETTE SCREENING DIGITAL BREAST TOMOSYNTHESIS BI SCREENING MAMMOGRAPHY BI 2-VIEW BREAST INC CAD Arden Muhammad MD [address] [place] [address] [facility] [address] [place] [id number] Referral ID Status Reason Start Date Expiration Date V isits Requested Visits Authorized [id number] Closed Auto-Generate d Referral 02/20/2022 03/22/2023 1 1 [facility] for visit Narrative* Diagnostic Procedure Only (Routine) - Closed Specialty Diagnoses / Procedures Referred By João t Referred To Contact [facility] Diagnoses Encounter for screening mammogram for malignant neoplasm of breast Procedures MERLIN SCREENING W COLLETTE SCREENING DIGITAL BREAST TOMOSYNTHESIS BI SCREENING MAMMOGRAPHY BI 2-VIEW BREAST INC CAD Leyda Bowman MD [address] [place] [address] [facility] [address] [place] [address] Referral ID Status Reason Start Date Expiration Date V isits Requested Visits Authorized [id number] Closed Auto-Generate d Referral 02/09/2023 03/09/2024 1 1 [facility] for visit Narrative* Outpatient Procedure (Routine) - Closed Specialty Diagnoses / Procedures Referred By João t Referred To Contact [facility] Diagnoses Special screening for malignant neoplasms, colon Procedures COLONOSCOPY SCREENING COLONOSCOPY FLX DX W/COLLJ SPEC WHEN PFRMD Maxine Brown PA-C [address] [place] [address] [facility] [address] [place] [id number] Referral ID Status Reason Start Date Expiration Date V isits Requested Visits Authorized [id number] Closed Auto-Generate d Referral 09/11/2022 09/11/2023 1 1 [facility] for visit Narrative* Diagnostic Procedure Only (Routine) - Closed Specialty Diagnoses / Procedures Referred By Contac t Referred To Contact XR IMAGING Diagnoses Bilateral hand pain Procedures XR HAND GENERAL 3V PA/LAT/OBL BILATERAL RADEX HAND MINIMUM 3 VIEWS Alphonso Marroquin MD [address] [place] [address] [place] [id number] Referral ID Status Reason Start Date Expiration Date V isits Requested Visits Authorized [id number] Closed Auto-Generate d Referral 06/02/2023 07/01/2024 1 1 [facility] Reason for Referral Specialty Diagnoses / Procedures Referred By João t Referred To Contact Hematology Diagnoses Lymphopenia Procedures CONSULT TO HEMATOLOGY OFFICE/OUTPATIENT [facility] 60-74 MINUTES Arden Muhammad MD [address] [place] [address] Referral ID Status Reason Start Date Expiration Date Visits Requested Visits Authorized [id number] Authorized PCP Requested Referral 05/22/2022 05/22/2023 1 1 Specialty Diagnoses / Procedures Referred By João howe Referred To Contact Rheumatology Diagnoses Polyarthralgia Elevated antinuclear antibody (BETHANY) level Procedures CONSULT TO RHEUM/IMMUN DISEASE OFFICE/OUTPATIENT [facility] 60-74 MINUTES Arden Muhammad MD [address] [place] [address] Referral ID Status Reason Start Date Expiration Date Visits Requested Visits Authorized [id number] Authorized PCP Requested Referral 06/11/2022 06/11/2023 1 1 Specialty Diagnoses / Procedures Referred By João howe Referred To Contact [facility] Diagnoses Primary osteoarthritis of first carpometacarpal joint of left hand Procedures CONSULT TO [facility] EVAL HIGH COMPLEX 60 MINS Malathi Arce PA-C [address] [place] [address] [facility] [address] [place] [address] Referral ID Status Reason Start Date Expiration Date Visits Requested Visits Authorized [id number] Pending Review Auto-Generat ed Referral 3 06/15/2024 1 1 Medications Administered Section Inactive Administered Medications - up to 3 most recent administrations Medication Order MAR Action Action Date Dose Rate Site diphenhydrAMINE 12.5-50 mg injection (BENADRYL) 12.5-50 mg, INTRAVENOUS, DIRECTED, Starting on Wed10/02/22 at 1130, Until Wed10/02/22 at 1529, DOSING DIRECTED BY PHYSICIAN FOR PROCEDURAL SEDATION ONLY, Intraprocedure Given 10/02/2022 11:02 AM EST 50 mg fentaNYL 50 mcg/mL 25-100 mcg injection (SUBLIMAZE) 25-100 mcg, INTRAVENOUS, DIRECTED, Starting on Wed10/02/22 at 1130, Until 10/02/22 at 1529, DOSING DIRECTED BY PHYSICIAN FOR PROCEDURAL SEDATION ONLY, Intraprocedure Given 10/02/2022 11:10 AM EST 50 mcg Summary Purpose Family History No Family History Records FoundNo Family History Records FoundNo Family History Records Found Advance Directives No Advanced Directives Records FoundNo Advanced Directives Records FoundNo Advanced Directives Records Found Additional Source Comments Source Comments (unrecognize d section and content) In the event this informatio n is protected by the Federal Confidentiality of Alcohol and Drug Abuse Patient Records regulations: The Federal rules restrict any use of the information to criminally investigate or prosecute any alcohol or drug abuse patient.[facility] the event this information is protected by the Federal Confidentiality of Alcohol and Drug Abuse Patient Records regulations: The Federal rules restrict any use of the information to criminally investigate or prosecute any alcohol or drug abuse patient.[facility] the event this information is protected by the Federal Confidentiality of Alcohol and Drug Abuse Patient Records regulations: The Federal rules restrict any use of the information to criminally investigate or prosecute any alcohol or drug abuse patient.[facility] the event this information is protected by the Federal Confidentiality of Alcohol and Drug Abuse Patient Records regulations: The Federal rules restrict any use of the information to criminally investigate or prosecute any alcohol or drug abuse patient.[facility] the event this information is protected by the Federal Confidentiality of Alcohol and Drug Abuse Patient Records regulations: The Federal rules restrict any use of the information to criminally investigate or prosecute any alcohol or drug abuse patient.[facility] the event this information is protected by the Federal Confidentiality of Alcohol and Drug Abuse Patient Records regulations: The Federal rules restrict any use of the information to criminally investigate or prosecute any alcohol or drug abuse patient.[facility] the event this information is protected by the Federal Confidentiality of Alcohol and Drug Abuse Patient Records regulations: The Federal rules restrict any use of the information to criminally investigate or prosecute any alcohol or drug abuse patient.[facility] event this information is protected by the Federal Confidentiality of Alcohol and Drug Abuse Patient Records regulations: The Federal rules restrict any use of the information to criminally investigate or prosecute any alcohol or drug abuse patient.[facility] the event this information is protected by the Federal Confidentiality of Alcohol and Drug Abuse Patient Records regulations: The Federal rules restrict any use of the information to criminally investigate or prosecute any alcohol or drug abuse patient.[facility] the event this information is protected by the Federal Confidentiality of Alcohol and Drug Abuse Patient Records regulations: The Federal rules restrict any use of the information to criminally investigate or prosecute any alcohol or drug abuse patient.[facility] the event this information is protected by the Federal Confidentiality of Alcohol and Drug Abuse Patient Records regulations: The Federal rules restrict any use of the information to criminally investigate or prosecute any alcohol or drug abuse patient.[facility] the event this information is protected by the Federal Confidentiality of Alcohol and Drug Abuse Patient Records regulations: The Federal rules restrict any use of the information to criminally investigate or prosecute any alcohol or drug abuse patient.[facility] the event this information is protected by the Federal Confidentiality of Alcohol and Drug Abuse Patient Records regulations: The Federal rules restrict any use of the information to criminally investigate or prosecute any alcohol or drug abuse patient.[facility] the event this information is protected by the Federal Confidentiality of Alcohol and Drug Abuse Patient Records regulations: The Federal rules restrict any use of the information to criminally investigate or prosecute any alcohol or drug abuse patient.[facility] the event this information is protected by the Federal Confidentiality of Alcohol and Drug Abuse Patient Records regulations: The Federal rules restrict any use of the information to criminally investigate or prosecute any alcohol or drug abuse patient.[facility] the event this information is protected by the Federal Confidentiality of Alcohol and Drug Abuse Patient Records regulations: The Federal rules restrict any use of the information to criminally investigate or prosecute any alcohol or drug abuse patient.[facility] the event this information is protected by the Federal Confidentiality of Alcohol and Drug Abuse Patient Records regulations: The Federal rules restrict any use of the information to criminally investigate or prosecute any alcohol or drug abuse patient.[facility] the event this information is protected by the Federal Confidentiality of Alcohol and Drug Abuse Patient Records regulations: The Federal rules restrict any use of the information to criminally investigate or prosecute any alcohol or drug abuse patient.[facility] Hospital[facility] the event this information is protected by the Federal Confidentiality of Alcohol and Drug Abuse Patient Records regulations: The Federal rules restrict any use of the information to criminally investigate or prosecute any alcohol or drug abuse patient.[facility]In the event this information is protected by the Federal Confidentiality of Alcohol and Drug Abuse Patient Records regulations: The Federal rules restrict any use of the information to criminally investigate or prosecute any alcohol or drug abuse patient.[facility] HospitalIn the event this information is protected by the Federal Confidentiality of Alcohol and Drug Abuse Patient Records regulations: The Federal rules restrict any use of the information to criminally investigate or prosecute any alcohol or drug abuse patient.[facility] the event this information is protected by the Federal Confidentiality of Alcohol and Drug Abuse Patient Records regulations: The Federal rules restrict any use of the information to criminally investigate or prosecute any alcohol or drug abuse patient.[facility] the event this information is protected by the Federal Confidentiality of Alcohol and Drug Abuse Patient Records regulations: The Federal rules restrict any use of the information to criminally investigate or prosecute any alcohol or drug abuse patient.[facility]In the event this information is protected by the Federal Confidentiality of Alcohol and Drug Abuse Patient Records regulations: The Federal rules restrict any use of the information to criminally investigate or prosecute any alcohol or drug abuse patient.[facility] HospitalIn the event this information is protected by the Federal Confidentiality of Alcohol and Drug Abuse Patient Records regulations: The Federal rules restrict any use of the information to criminally investigate or prosecute any alcohol or drug abuse patient.[facility] HospitalIn the event this information is protected by the Federal Confidentiality of Alcohol and Drug Abuse Patient Records regulations: The Federal rules restrict any use of the information to criminally investigate or prosecute any alcohol or drug abuse patient.[facility]In the event this information is protected by the Federal Confidentiality of Alcohol and Drug Abuse Patient Records regulations: The Federal rules restrict any use of the information to criminally investigate or prosecute any alcohol or drug abuse patient.[facility] HospitalIn the event this information is protected by the Federal Confidentiality of Alcohol and Drug Abuse Patient Records regulations: The Federal rules restrict any use of the information to criminally investigate or prosecute any alcohol or drug abuse patient.[facility] HospitalIn the event this information is protected by the Federal Confidentiality of Alcohol and Drug Abuse Patient Records regulations: The Federal rules restrict any use of the information to criminally investigate or prosecute any alcohol or drug abuse patient.[facility] HospitalIn the event this information is protected by the Federal Confidentiality of Alcohol and Drug Abuse Patient Records regulations: The Federal rules restrict any use of the information to criminally investigate or prosecute any alcohol or drug abuse patient.[facility] HospitalIn the event this information is protected by the Federal Confidentiality of Alcohol and Drug Abuse Patient Records regulations: The Federal rules restrict any use of the information to criminally investigate or prosecute any alcohol or drug abuse patient.[facility] HospitalIn the event this information is protected by the Federal Confidentiality of Alcohol and Drug Abuse Patient Records regulations: The Federal rules restrict any use of the information to criminally investigate or prosecute any alcohol or drug abuse patient.[facility] HospitalIn the event this information is protected by the Federal Confidentiality of Alcohol and Drug Abuse Patient Records regulations: The Federal rules restrict any use of the information to criminally investigate or prosecute any alcohol or drug abuse patient.[facility] HospitalIn the event this information is protected by the Federal Confidentiality of Alcohol and Drug Abuse Patient Records regulations: The Federal rules restrict any use of the information to criminally investigate or prosecute any alcohol or drug abuse patient.[facility] HospitalIn the event this information is protected by the Federal Confidentiality of Alcohol and Drug Abuse Patient Records regulations: The Federal rules restrict any use of the information to criminally investigate or prosecute any alcohol or drug abuse patient.[facility] HospitalIn the event this information is protected by the Federal Confidentiality of Alcohol and Drug Abuse Patient Records regulations: The Federal rules restrict any use of the information to criminally investigate or prosecute any alcohol or drug abuse patient.[facility] HospitalIn the event this information is protected by the Federal Confidentiality of Alcohol and Drug Abuse Patient Records regulations: The Federal rules restrict any use of the information to criminally investigate or prosecute any alcohol or drug abuse patient.[facility] HospitalIn the event this information is protected by the Federal Confidentiality of Alcohol and Drug Abuse Patient Records regulations: The Federal rules restrict any use of the information to criminally investigate or prosecute any alcohol or drug abuse patient.[facility] HospitalIn the event this information is protected by the Federal Confidentiality of Alcohol and Drug Abuse Patient Records regulations: The Federal rules restrict any use of the information to criminally investigate or prosecute any alcohol or drug abuse patient.[facility] HospitalIn the event this information is protected by the Federal Confidentiality of Alcohol and Drug Abuse Patient Records regulations: The Federal rules restrict any use of the information to criminally investigate or prosecute any alcohol or drug abuse patient.[facility] HospitalIn the event this information is protected by the Federal Confidentiality of Alcohol and Drug Abuse Patient Records regulations: The Federal rules restrict any use of the information to criminally investigate or prosecute any alcohol or drug abuse patient.[facility] HospitalIn the event this information is protected by the Federal Confidentiality of Alcohol and Drug Abuse Patient Records regulations: The Federal rules restrict any use of the information to criminally investigate or prosecute any alcohol or drug abuse patient.[facility] HospitalIn the event this information is protected by the Federal Confidentiality of Alcohol and Drug Abuse Patient Records regulations: The Federal rules restrict any use of the information to criminally investigate or prosecute any alcohol or drug abuse patient.[facility] HospitalIn the event this information is protected by the Federal Confidentiality of Alcohol and Drug Abuse Patient Records regulations: The Federal rules restrict any use of the information to criminally investigate or prosecute any alcohol or drug abuse patient.[facility] HospitalIn the event this information is protected by the Federal Confidentiality of Alcohol and Drug Abuse Patient Records regulations: The Federal rules restrict any use of the information to criminally investigate or prosecute any alcohol or drug abuse patient.[facility] HospitalIn the event this information is protected by the Federal Confidentiality of Alcohol and Drug Abuse Patient Records regulations: The Federal rules restrict any use of the information to criminally investigate or prosecute any alcohol or drug abuse patient.[facility] HospitalIn the event this information is protected by the Federal Confidentiality of Alcohol and Drug Abuse Patient Records regulations: The Federal rules restrict any use of the information to criminally investigate or prosecute any alcohol or drug abuse patient.[facility] HospitalIn the event this information is protected by the Federal Confidentiality of Alcohol and Drug Abuse Patient Records regulations: The Federal rules restrict any use of the information to criminally investigate or prosecute any alcohol or drug abuse patient.[facility] HospitalIn the event this information is protected by the Federal Confidentiality of Alcohol and Drug Abuse Patient Records regulations: The Federal rules restrict any use of the information to criminally investigate or prosecute any alcohol or drug abuse patient.[facility] Reason for Visit (unrecogniz ed section and content) Specialty Diagnoses / Procedures Referred By João t Referred To Contact [facility] Diagnoses Primary osteoarthritis of first carpometacarpal joint of left hand Procedures CONSULT TO GREASE MAN OCCUPATIONAL THERAPY EVAL HIGH COMPLEX 60 MINS Malathi Arce PA-C [address] [place] [address] [facility] [place] [address] [place] [address] Referral ID Status Reason Start Date Expiration Date Visits Requested Visits Authorized [id number] Authorized Auto-Generat ed Referral 09/06/2022 09/05/2023 20 20 Reason Comments Occupational Therapy Reason Comments New Patient Specialty Diagnoses / Procedures Referred By Contac t Referred To Contact Rheumatology Diagnoses Polyarthralgia Elevated antinuclear antibody (BETHANY) level Procedures CONSULT TO RHEUM/IMMUN DISEASE OFFICE/OUTPATIENT [facility] 60-74 MINUTES Arden Muhammad MD [address] [place], [place] [id number] Referral ID Status Reason Start Date Expiration Date V isits Requested Visits Authorized [id number] Closed PCP Requested Referral 06/11/2022 06/11/2023 1 1 Reason Onset Date Comments Refill Request 12/29/2021 Reason Comments Results Reason Comments Telemedicine Reason Comments Appointment Reason Comments Results Specialty Diagnoses / Procedures Referred By Contac t Referred To Contact Hematology Diagnoses Lymphopenia Procedures CONSULT TO HEMATOLOGY OFFICE/OUTPATIENT [facility] 60-74 MINUTES Arden Muhammad MD [address] [place] [address] Referral ID Status Reason Start Date Expiration Date V isits Requested Visits Authorized [id number] Closed PCP Requested Referral 05/22/2022 05/22/2023 1 1 Reason Comments Patient Update Results Reason Comments Letter Eye exam dated 06/25 Reason Onset Date Comments Refill Request 2022 Reason Onset Date Comments Refill Request 08/03/2022 Reason Comments Consult colonoscopy Specialty Diagnoses / Procedures Referred By Contac t Referred To Contact General Surgery Diagnoses Screening for colon cancer Procedures CONSULT TO GENERAL SURGERY OFFICE/OUTPATIENT [facility] 60-74 MINUTES Arden Muhammad MD [address] [place] [id number] Referral ID Status Reason Start Date Expiration Date V isits Requested Visits Authorized [id number] Closed PCP Requested Referral 08/28/2022 08/28/2023 1 1 Reason Comments Follow Up Reason Onset Date Comments Refill Request 12/21/2022 Reason Comments Consult Reason Onset Date Comments Refill Request 04/28/2023 Reason Comments Bradycardia Reason Comments Schedule Surgery Reason Onset Date Comments Refill Request 06/21/2023 Reason Comments Recheck Reason Comments Patient Question 06/28/[address] Cardi[address] y OV with Dr[address] Radha Escoto Reason Comments New Bilateral hand painL ast seen 11/17/2021 OA bilateral thumbsXray today - 06/10/2023 Pain Bilateral hand painL ast seen 11/17/2021 OA bilateral thumbsXray today - 06/10/2023 New Pain Reason Comments Pain Left thumb CMC arthr oplasty Post Op Left thumb CMC arthr oplasty Reason Comments OT EVAL Reason Comments New Patient Evaluation SVT Reason Comments Established Patient Post Op Reason Comments Post Op 3 weeks 6 days post op Left thumb CMC arthroplasty with tendon transfer and suspension, and 1st dorsal compartment release Care Teams (unrecognized sec tion and content) Personal Development Educator Relationship Specialty Start Date End Date Arden Muhammad MD [address] [place] [address] PCP - General Family Practice 04/29/15 Personal Development Educator Relationship Specialty Start Date End Date Arden Muhammad MD [address] [place] [address] PCP - General Family Practice 04/29/15 Personal Development Educator Relationship Specialty Start Date End Date Arden Muhammad MD [address] [place] [address] PCP - General Family Practice 04/29/15 Personal Development Educator Relationship Specialty Start Date End Date Arden Muhammad MD [facility] [place], [place] [id number] PCP - General Family Practice 04/29/15 Personal Development Educator Relationship Specialty Start Date End Date Arden Muhammad MD [address] [place], [place] [id number] PCP - General Family Practice 04/29/15 Personal Development Educator Relationship Specialty Start Date End Date Arden Muhammad MD [address] [facility] [place] [address] PCP - General Family Practice 04/29/15 Personal Development Educator Relationship Specialty Start Date End Date Arden Muhammad MD [address] [facility] [place] [address] PCP - General Family Medicine 04/29/15 Personal Development Educator Relationship Specialty Start Date End Date Arden Muhammad MD [address] [facility] [place] [address] PCP - General Family Medicine 04/29/15 Personal Development Educator Relationship Specialty Start Date End Date Arden Muhammad MD [address] [facility] [place] [address] PCP - General Family Medicine 04/29/15 Personal Development Educator Relationship Specialty Start Date End Date Arden Muhammad MD [address] [facility] [place] [address] PCP - General Family Medicine 04/29/15 Personal Development Educator Relationship Specialty Start Date End Date Arden Muhammad MD [address] [facility] [place] [address] PCP - General Family Medicine 04/29/15 Personal Development Educator Relationship Specialty Start Date End Date Arden Muhammad MD [address] [facility] [place] [address] PCP - General Family Medicine 04/29/15 Personal Development Educator Relationship Specialty Start Date End Date Arden Muhammad MD [address] [facility] [place] [address] PCP - General Family Medicine 04/29/15 Personal Development Educator Relationship Specialty Start Date End Date Arden Muhammad MD [address] [facility] [place] [address] PCP - General Family Medicine 04/29/15 Personal Development Educator Relationship Specialty Start Date End Date Arden Muhammad MD [address] [facility] [place] [address] PCP - General Family Medicine 04/29/15 Personal Development Educator Relationship Specialty Start Date End Date Arden Muhammad MD [address] [facility] [place] [address] PCP - General Family Medicine 04/29/15 Personal Development Educator Relationship Specialty Start Date End Date Arden Muhammad MD [address] [facility] [place] [address] PCP - General Family Medicine 04/29/15 Personal Development Educator Relationship Specialty Start Date End Date Arden Muhammad MD [address] [facility] [place] [address] PCP - General Family Medicine 04/29/15 Personal Development Educator Relationship Specialty Start Date End Date Arden Muhammad MD [address] [facility] [place] [address] PCP - General Family Medicine 04/29/15 Personal Development Educator Relationship Specialty Start Date End Date Arden Muhammad MD [address] [facility] [place] [address] PCP - General Family Medicine 04/29/15 Personal Development Educator Relationship Specialty Start Date End Date Arden Muhammad MD [address] [facility] [place] [address] PCP - General Family Medicine 04/29/15 Personal Development Educator Relationship Specialty Start Date End Date Arden Muhammad MD [address] [facility] [place] [address] PCP - General Family Medicine 04/29/15 Personal Development Educator Relationship Specialty Start Date End Date Arden Muhammad MD [address] [place] [address] PCP - General Family Medicine 04/29/15 Personal Development Educator Relationship Specialty Start Date End Date Arden Muhammad MD [address] [place] [address] PCP - General Family Medicine 04/29/15 Personal Development Educator Relationship Specialty Start Date End Date Arden Muhammad MD [address] [place] [address] PCP - General Family Medicine 04/29/15 Personal Development Educator Relationship Specialty Start Date End Date Arden Muhammad MD [address] [place] [address] PCP - General Family Medicine 04/29/15 Personal Development Educator Relationship Specialty Start Date End Date Arden Muhammad MD [address] [place] [address] PCP - General Family Medicine 04/29/15 Personal Development Educator Relationship Specialty Start Date End Date Arden Muhammad MD [address] [place] [address] PCP - General Family Medicine 04/29/15 Personal Development Educator Relationship Specialty Start Date End Date Arden Muhammad MD [address] [facility] [place], [place] [address] PCP - General Family Medicine 04/29/15 Personal Development Educator Relationship Specialty Start Date End Date Arden Muhammad MD [address] [place] [address] PCP - General Family Medicine 04/29/15 Personal Development Educator Relationship Specialty Start Date End Date Arden Muhammad MD [address] [place], [place] [address] PCP - General Family Medicine 04/29/15 Personal Development Educator Relationship Specialty Start Date End Date Arden Muhammad MD [address] [place], [place] [address] PCP - General Family Medicine 04/29/15 Personal Development Educator Relationship Specialty Start Date End Date Arden Muhammad MD [address] [place], [place] [address] PCP - General Family Medicine 04/29/15 Personal Development Educator Relationship Specialty Start Date End Date Arden Muhammad MD [address] [place], [place] [address] PCP - General Family Medicine 04/29/15 Personal Development Educator Relationship Specialty Start Date End Date Arden Muhammad MD [address] [place], [place] [address] PCP - General Family Medicine 04/29/15 Pleon Escoto MD [address] [address] Specialty Acid Supervisor Cardiology 08/19/23 Genna Romero MD [address] [place], [place] [id number] Specialty Acid Supervisor Rheumatology 08/20/23 Alphonso Marroquin MD [address] [place] [address] Specialty Acid Supervisor Orthopedics 08/20/23 Personal Development Educator Relationship Specialty Start Date End Date Arden Muhammad MD [address] [place] [address] PCP - General Family Medicine 04/29/15 Pelon Escoto MD [address] [place] [address] Specialty Acid Supervisor Cardiology 08/19/23 Genna Romero MD [address] [place], [place] [id number] Specialty Acid Supervisor Rheumatology 08/20/23 Alphonso Marroquin MD [address] [place], [place] [id number] Specialty Acid Supervisor Orthopedics 08/20/23 INFORMATION SOURCE (unrecogn ized section and content) DATE CREATED AUTHOR AUTHOR'S ORGANIZ ATION 09/03/2023 [facility] DATE CREATED AUTHOR AUTHOR'S ORGANIZ ATION 09/25/2023 [facility] FOR RECORDS PERTAINING TO PATIENTS WHO ARE OR HAVE BEEN ENROLLED IN A CHEMICAL DEPENDENCY/SUBSTANCEABUSE PROGRAM, SOME INFORMATION MAY BE OMITTED. This clinical summary was aggregated from multiple sources. Caution should be exercised in using it in the provision of clinical care. This summary normalizes information from multiple sources, and as a consequence, information in this document may materially change the coding, format and clinical context of patient data. In addition, data may be omitted in some cases. CLINICAL DECISIONS SHOULD BE BASED ON THE PRIMARY CLINICAL RECORDS. [employer] [facility]. provides no warranty or guarantee of the accuracy or completeness of information in this document.
[2023-10-02 13:01] VITALS: BP 103/73; PULSE 81; RESP 17; O2SAT 100
== END 2023-10-02 13:02 | disposition home or self-care (01) ==
PROVIDERS: Emergency Provider Emergency Medicine; PCP Family Medicine; Visit Provider Emergency Medicine
DX: I47.10 Supraventricular tachycardia, unspecified (principal); Z79.899 Other long term (current) drug therapy; Z87.891 Personal history of nicotine dependence
CPT/HCPCS: 93005; 96374; 99284; A4216; J0153